=== PATIENT | female | born 1940 | race Caucasian/White ===

== ENCOUNTER 2022-02-07 10:20 | Emergency (ER) | payer MEDICARE, SELFPAY ==
[2022-02-07 10:32] VITALS: BP 122/84; PULSE 97; RESP 20; TEMP 37.1; O2SAT 96; BMI 26.5
--- NOTE | 2022-02-07 10:57 | ED.SOB ---
HPI - SOB/Dyspnea General Time Seen by Provider: 10:57 Date Seen: 02/07/22 Chief Complaint: Shortness of Breath/Dyspnea Stated Complaint: Short of breath Time Seen by Provider: 02/07/22 10:57 Source: patient, RN notes reviewed and old records reviewed Mode of arrival: ambulatory Limitations: no limitations History of Present Illness HPI Narrative: Carlotta is a very pleasant 81-year-old female looking younger than her stated age with a history of COPD as well as hypertension and recent diagnosis of COVID comes to the emergency room today for continued and worsening coughing and shortness of breath. Patient notes the onset of a cough on approximately January 23. She was seen on the as her cough was quite significant and tested for COVID but was not aware of those results. She was also diagnosed with a COPD flare and was placed on prednisone and antibiotics. She notes that she had improvement of her symptoms at that time. Once she finished those medications her symptoms unfortunately came back are in [place] and are even worse. Patient describes coughing up of a lot of phlegm and shortness of breath. She states that she has no appetite and no taste and consequently has lost 8 lb. She is able to eat drink however. She does her home nebulizers twice a day but did not do a nebulizer this morning. She also notes that her left low back has been sore. She does not know why. She notes that she has attempted to go to [facility] for rechecks and [place] as well but has been unable to be seen. She does note that she had diarrhea yet last week but no vomiting. She denies dysuria hematuria. 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 She denies chest pain. She does not have any lower extremity edema but notes that her calf muscles are sore. She has not been bed-bound and has been as active as possible. Related Data Home Medications Medication Instructions Recorded Confirmed betamethasone, augmented 0.05 % applic topical 02/07/22 topical cream ferrous gluconate 324 mg (38 mg mg 02/07/22 iron) tablet fluticasone propionate 50 intranasal 02/07/22 mcg/actuation nasal spray,suspension hydroxyzine HCl 50 mg tablet mg 02/07/22 ipratropium 0.5 mg-albuterol 3 mg ml inhalation 02/07/22 (2.5 mg base)/3 mL nebulization soln levothyroxine 100 mcg tablet mcg 02/07/22 omeprazole 20 mg capsule,delayed mg 02/07/22 release simvastatin 10 mg tablet mg 02/07/22 Previous Rx's Medication Instructions Recorded levofloxacin 500 mg tablet 500 mg PO DAILY 7 days #7 tabs 02/07/22 prednisone 20 mg tablet 20 mg PO BID #10 tabs 02/07/22 Allergies Allergy/AdvReac Type Severity Reaction Status Date / Time amoxicillin Allergy Verified 02/07/22 10:38 flu vac Allergy Uncoded 02/07/22 10:38 Review of Systems Status of ROS: Reports: 10 or more systems reviewed and unremarkable except as noted in History and below Const: Reports: fever (Low-grade to 99.3 last week. No fever at this time.) and fatigue; Denies: night sweats Eyes: Denies: change in vision ENMT: Denies: throat pain, difficulty swallowing, hoarseness or mouth pain Cardio: Reports: lightheadedness, shortness of breath with exertion and shortness of breath when lying down; Denies: chest pain or swelling of feet/ankles Resp: Reports: shortness of breath, cough, wheezing and change in phlegm color GI: Reports: diarrhea (Last week that is now improving); Denies: abdominal pain, nausea, vomiting or difficulty swallowing : Denies: painful urination or urinary frequency Musculo: Reports: back pain (Left flank) Integ/Breast: Denies: rash Neuro: Denies: headache or weakness in extremities Endo: Reports: fatigue Allergy/Immuno: Reports: wheezing PFSH PFSH Social History Smoking Status: Former smoker Do you use any of these nicotine containing products: None How often do you have a drink containing alcohol: monthly or less AUDIT-C Alcohol total score: 1 Non-prescribed substance use: denies use Exam Narrative: Exam Narrative: Patient is alert and oriented. Very pleasant woman in no acute distress. Eyes are clear. TMs without erythema or fluid Oral cavity with moist mucous membranes. No significant erythema or exudate in the posterior oropharynx. Neck is supple without lymphadenopathy. Heart with regular rate and rhythm and lungs show decreased breath sounds especially in the right lower lung base. Abdomen is soft nontender. She does have pain with palpation over the left lower posterior ribcage. There are no skin changes here. Lower extremities without edema. No significant tenderness with palpating calves. Const: Vital Signs, click to edit/add: Vital Signs - 24 hr 02/07/22 10:32 02/07/22 11:11 Temperature 98.8 F Pulse Rate [Right Pulse Oximeter] 97 Respiratory Rate 20 Blood Pressure [Ri ght Upper Arm] 122/84 Pulse Oximetry 96 98 Oxygen Delivery Me thod Room Air Documenting provider has reviewed patient's vital signs: yes Course Course Hospital Course: Differential diagnosis includes but is not limited to pneumonia, COPD exacerbation, PE, post COVID syndrome other viral illness. Will check a triple swab as patient is also not vaccinated against influenza. Will also check a CBC, comprehensive panel, CRP, urinalysis given the diarrhea and now flank pain, D-dimer, and chest x-ray. DuoNeb has been ordered for patient at this time. Reevaluation(s) Reevaluation #1: Patient notes improvement after DuoNeb. Vital Signs Vital signs: Initial Vital Signs Temperature 98.8 F 02/07/22 10:32 Temperature Source Temporal Artery Scan 02/07/22 10:32 Pulse Rate 97 02/07/22 10:32 Respiratory Rate 20 02/07/22 10:32 Blood Pressure 122/84 02/07/22 10:32 Blood Pressure Mean 96 02/07/22 10:32 Blood Pressure Position Sitting 02/07/22 10:32 Pulse Oximetry 96 02/07/22 10:32 Oxygen Delivery Method 02/07/22 10:32 Vital Signs Temperature 98.8 F 02/07/22 10:32 Pulse Rate 97 02/07/22 10:32 Respiratory Rate 20 02/07/22 10:32 Blood Pressure 122/84 02/07/22 10:32 Pulse Oximetry 96 02/07/22 10:32 Oxygen Delivery Method 02/07/22 10:32 Temperature 98.8 F 02/07/22 10:32 Pulse Rate 97 02/07/22 10:32 Respiratory Rate 20 02/07/22 10:32 Blood Pressure 122/84 02/07/22 10:32 Pulse Oximetry 98 02/07/22 11:11 Oxygen Delivery Method 02/07/22 10:32 MDM - SOB/Dyspnea MDM Narrative Medical decision making narrative: 1. Clinical pneumonia-at this time chest x-ray is reassuring that patient definitely has decreased breath sounds in the right lower lung base compared to the left. While she does not have a fever, I will be treating her for pneumonia. She recently completed Zithromax and thus I will switch to Levaquin per up-to-date guidance. Levaquin 500 mg daily for 7 days. Did discuss Levaquin is a fact on kidneys. Would recommend patient follow-up next week for recheck of creatinine and potassium. In addition given her history of COPD, will treat with prednisone 20 mg p.o. b.i.d. x5 days. Recommend increasing DuoNebs to 3 times daily. Seek medical attention for worsening symptoms. 2. Post COVID -chest x-ray reassuring. D-dimer within normal limits so no evidence to suggest that patient's shortness of breath is secondary to PE. She is testing positive at this time on a PCR but per her report at home negative on at the antigen test. 3. Musculoskeletal pain-patient has pain over left flank posterior ribcage. No evidence of UTI or hematuria. Likely secondary to coughing. 3. Disposition-home at this time. Seek medical attention for worsening symptoms. Recommend follow-up next week for recheck. Medical Records Attestation: I reviewed the patient's medical records. Lab Data Attestation: I reviewed the patient's lab results. Labs: Lab Results 02/07/22 02/07/22 02/07/22 Range/Units 11:50 11:50 11:58 WBC 9.02 (4.50-11.00) K/uL RBC 5.75 H (4.00-5.20) m/uL Hgb 16.4 H (12.0-16.0) gm/dL Hct 47.6 (33.0-51.0) % MCV 83 (80-100) fL MCH 29 (26-34) pg MCHC 35 (32-36) gm/dL RDW Coeff of Murphy 12.8 (11.5-15.5) % Plt Count 362 (140-440) K/uL Neut % (Auto) 67.4 (42.0-72.0) % Lymph % (Auto) 20.3 (20-44) % [place] % (Auto) 11.0 (0.0-11.0) % Eos % (Auto) 0.8 (0.0-7.0) % Baso % (Auto) 0.2 (0.0-3.0) % Neut # (Auto) 6.08 (1.7-7.0) K/uL Lymph # (Auto) 1.83 (0.90-2.90) K/uL [place] # (Auto) 1.00 H (0.00-0.90) K/UL Eos # (Auto) 0.07 (0.00-0.50) K/uL Baso # (Auto) 0.02 (0.00-0.30) K/uL Abs Immat Gran (auto) 0.03 (0.00-0.30) K/uL Imm/Tot Granulo (auto) 0.3 % D-Dimer Quant (PE/DVT) (0.00-0.50) ug/ml Sodium (135-149) mmol/L Potassium (3.6-5.1) mmol/L Chloride (96-114) mmol/L Carbon Dioxide (20-32) mmol/L BUN (7-30) mg/dL Creatinine (0.5-1.5) mg/dL Estimated Creat Clear Estimated GFR ml/min Glucose (60-115) mg/dL Calcium (8.4-10.6) mg/dL Total Bilirubin (0.1-1.5) mg/dL AST (12-35) U/L ALT (4-35) U/L Alkaline Phosphatase (40-150) U/L C-Reactive Protein (0.5-1.0) mg/dL Total Protein (6.0-8.3) g/dL Albumin (3.3-5.0) g/dL Urine Color Yellow (Yellow) Urine Appearance Slightly Cloudy A (Clear) Urine pH 6.0 (5.0-8.5) Ur Specific [place] 1.025 (1.000-1.030) Urine Protein Trace A (Negative) Urine Glucose (UA) Negative (Negative) Urine Ketones Negative (Negative) Urine Blood Negative (Negative) Urine Nitrite Negative (Negative) Urine Bilirubin Negative (Negative) Urine Urobilinogen 0.2 (0.2-1.0) Ur Leukocyte Esterase Trace A (Negative) Urine RBC 0-2 (0-2) Urine WBC 0-2 (0-5) Ur Squamous Epith Cells None (None-Few) Urine Bacteria None (None) SARS-CoV-2 (PCR) POSITIVE SARS-CoV-2 A (Negative) Influenza Type A (PCR) Negative PCR FLU A (Negative) Influenza Type B (PCR) Negative PCR FLU B (Negative) RSV (PCR) Negative PCR RSV (Negative) 02/07/22 02/07/22 Range/Units 11:58 11:58 WBC (4.50-11.00) K/uL RBC (4.00-5.20) m/uL Hgb (12.0-16.0) gm/dL Hct (33.0-51.0) % MCV (80-100) fL MCH (26-34) pg MCHC (32-36) gm/dL RDW Coeff of Murphy (11.5-15.5) % Plt Count (140-440) K/uL Neut % (Auto) (42.0-72.0) % Lymph % (Auto) (20-44) % [place] % (Auto) (0.0-11.0) % Eos % (Auto) (0.0-7.0) % Baso % (Auto) (0.0-3.0) % Neut # (Auto) (1.7-7.0) K/uL Lymph # (Auto) (0.90-2.90) K/uL [place] # (Auto) (0.00-0.90) K/UL Eos # (Auto) (0.00-0.50) K/uL Baso # (Auto) (0.00-0.30) K/uL Abs Immat Gran (auto) (0.00-0.30) K/uL Imm/Tot Granulo (auto) % D-Dimer Quant (PE/DVT) 0.27 (0.00-0.50) ug/ml Sodium 137 (135-149) mmol/L Potassium 3.6 (3.6-5.1) mmol/L Chloride 101 (96-114) mmol/L Carbon Dioxide 27 (20-32) mmol/L BUN 23 (7-30) mg/dL Creatinine 1.0 (0.5-1.5) mg/dL Estimated Creat Clear 35.49 Estimated GFR 57 ml/min Glucose 92 (60-115) mg/dL Calcium 9.4 (8.4-10.6) mg/dL Total Bilirubin 0.8 (0.1-1.5) mg/dL AST 25 (12-35) U/L ALT 39 H (4-35) U/L Alkaline Phosphatase 97 (40-150) U/L C-Reactive Protein < 0.5 L (0.5-1.0) mg/dL Total Protein 7.3 (6.0-8.3) g/dL Albumin 4.6 (3.3-5.0) g/dL Urine Color (Yellow) Urine Appearance (Clear) Urine pH (5.0-8.5) Ur Specific [place] (1.000-1.030) Urine Protein (Negative) Urine Glucose (UA) (Negative) Urine Ketones (Negative) Urine Blood (Negative) Urine Nitrite (Negative) Urine Bilirubin (Negative) Urine Urobilinogen (0.2-1.0) Ur Leukocyte Esterase (Negative) Urine RBC (0-2) Urine WBC (0-5) Ur Squamous Epith Cells (None-Few) Urine Bacteria (None) SARS-CoV-2 (PCR) (Negative) Influenza Type A (PCR) (Negative) Influenza Type B (PCR) (Negative) RSV (PCR) (Negative) Imaging Data Chest x-ray: Attestation: I have reviewed the pertinent imaging results. My impression: By my read possibly slightly increased right lower lung markings. Radiologist's impression: Cardiovascular and mediastinum:? Heart size and vasculature are normal in caliber and appearance.? Lungs and pleural spaces:? Lungs are clear.? No sign of infiltrate or mass. ?No sign of pleural effusion.? No pneumothorax.? Bones and soft tissues: Left shoulder replacement hardware. IMPRESSION: No acute findings. Discharge Plan Discharge Clinical Impression: Muscle strain, COPD (chronic obstructive pulmonary disease), Pneumonia Patient Disposition: Home, Self-Care Condition: Improved Additional Instructions: You are still testing positive for COVID. This is not unusual. I do not think you are contagious at this time. I would like you to start on Levaquin as your antibiotic as you have already tried Zithromax. Recommend follow-up for recheck of kidney function and potassium early next week with your primary clinic. I would also recommend starting prednisone. Increase her DuoNeb to 3 times a day Return to the emergency room for worsening symptoms and as needed. Thank you for your patients today Prescriptions: New prednisone 20 mg tablet 20 mg PO BID Qty: 10 0RF levofloxacin 500 mg tablet 500 mg PO DAILY 7 Days Qty: 7 0RF No Action ipratropium-albuterol 0.5 mg-3 mg(2.5 mg base)/3 mL solution for nebulization INHALATION Label Comments: USE 3 ML IN NEBULIZER 4 TIMES DAILY NEEDED betamethasone, augmented 0.05 % cream TOPICAL Label Comments: APPLY TO BODY AREAS TWO TIMES A DAY FOR 2-3 WEEKS NEEDED FOR ITCHING simvastatin 10 mg tablet Label Comments: TAKE 1 TABLET BY MOUTH ONCE DAILY WITH EVENING MEAL hydroxyzine HCl 50 mg tablet Label Comments: TAKE 1 TABLET BY MOUTH EVERY 8 HOURS NEEDED FOR ITCHING levothyroxine 100 mcg tablet Label Comments: TAKE 1 TABLET BY MOUTH BEFORE BREAKFAST omeprazole 20 mg capsule,delayed release(DR/EC) Label Comments: TAKE 1 CAPSULE BY MOUTH ONCE DAILY BEFORE A MEAL fluticasone propionate 50 mcg/actuation spray,suspension INTRANASAL Label Comments: USE 1 SPRAY(S) IN THE NOSTRIL(S) ONCE DAILY ferrous gluconate 324 mg (38 mg iron) tablet Label Comments: TAKE 1 TABLET BY MOUTH TWICE DAILY WITH MEALS Follow Up/Referrals: Lalita Mendez, [employer], BOOK EDITOR [Primary Care Provider] - Stand Alone Forms: [email or web address] Info Instructions
[2022-02-07 11:11] VITALS: O2SAT 98
--- NOTE | 2022-02-07 11:11 | CRLHL7_ITS ---
For Patients: As a result of the Cures Act, medical imaging exams and procedure reports are released immediately into your electronic medical record. You may view this report before your referring provider. If you have questions, please contact your health care provider. INDICATION: CONTINUED COUGH POST COVID TECHNIQUE: Chest 1 view COMPARISON: None FINDINGS: Cardiovascular and mediastinum: Heart size and vasculature are normal in caliber and appearance. Lungs and pleural spaces: Lungs are clear. No sign of infiltrate or mass. No sign of pleural effusion. No pneumothorax. Bones and soft tissues: Left shoulder replacement hardware. IMPRESSION: No acute findings. Dictated by Thai Hernández MD @ 02/07/2022 11:44:14 AM (Electronically Signed)
--- OUTSIDE RECORDS SUMMARY | 2022-02-07 11:18 | XMS_ITS | Encounter Summary ---
:1940 Author Organization [employer] Address [address] [place] [address] Care Team Providers Name Role Phone Sergo Mrax MD Primary Care Provider Reason for Visit Reason Comments CONSULT Encounter Details Date Type Department Care Team Description 12/28/2019 Office Visit [facility] History of lumbar fusion (Primary Dx); Rheumatology [address] [facility] Lumbar spondylosis; [address] [employer] Osteoarthritis of fingers of hands, bila teral; [place] [address] [place], [place] Cervical spondylosis; [phone] [id number] Myofascial pain Social History Tobacco Use Types Packs/Day Years Used Date Smoking Tobacco: Former Smokeless Tobacco: Never Sex Assigned at Date Recorded Not on file documented as of this encounter Last Filed Vital Signs Vital Sign Reading Time Taken Comments Blood Pressure 134/74 12/28/2019 1:17 PM CDT Pulse 74 12/28/2019 1:17 PM CDT Temperature 36.4 ??C (97.6 ??F) 12/28/2019 1:17 PM CDT Respiratory Rate - - Oxygen Saturation - - Inhaled Oxygen Concentration - - Weight 73.5 kg (162 lb) 12/28/2019 1:17 PM CDT Height 157.5 cm (5' 2) 12/28/2019 1:17 PM CDT Body Mass Index 29.63 12/28/2019 1:17 PM CDT documented in this encounter Patient Instructions Patient InstructionsKaiser Wang MD - 12/28/2019 1:30 PM CDT No doubt you have some osteoarthritis - cartilage wear/age related arthritis. We know you have that in your neck, back, hands. You also have some muscle attachment pain (sides of hips) = myofascial pain. I don't see signs of any inflammatory arthritis like rheumatoid. Treatment options are kind of limited. Tylenol is safe 1000 mg up to 3 times daily. Meds in the ibuprofen or aleve category (NSAIDs) get riskier the older you are - can be hard on stomach or kidneys. Not entirely contraindicated. Would want to check blood counts and kidney function tolet you know if occasional aleve is OK. The duloxetine your primary care suggested this summer is a mood medication, but can sometimes reduce overall pain. Takes 2-3 months to help with pain; won't stop all pain, but could turn the volume down. Its safe, and not hard on organs. Restart it at 30 mg/day for 1 month, then change to 60 mg/day; I've given you enough for a total of 4 months; See Dr. Marx for follow-up before that ends. If no pain improvements from duloxetine in 3-4 months, probably not worth continuing. Voltaren gel is like topical Aleve- its over the counter, safe, because not oral. Can rub on sore joint areas up to 3 times daily. Cortisone shots can be done in selected areas - could be done base of the thumbs; could be done sides of the hips. Usually we don't recommend opioids (oxycodone) for this since can quickly tolerize to it. documented in this encounter Progress Notes Kaiser Wang MD - 12/28/2019 1:30 PM CDT RHEUMATOLOGY NEW PATIENT NOTE This note was generated with voice activated secretary to the vice president software and may contain typographical and word substitution errors. The patient is self referred. HPI: The patient is a 79 y.o. female. She is self-referred for arthritis. She gets her primary care at [facility]. She has seen there orthopedic sports medicine for some chronic low back pain. She does have a history of 2 back surgeries. She was felt to have lumbar facet arthropathy. X-ray showed progression of L2-3 degenerative disc disease above the level of the fusion from L3-S1. She had been given some Tylenol with codeine, MRI scan was ordered. Later I believe she was given some oxycodone. I am not able to see the MRI results on Care everywhere. She was recommended to dowest harrison exercise program and follow-up in a couple of months. She was not having any radicular symptoms. On prior MRI, she also has multilevel degenerative disc disease and facet arthropathy in the cervical spine. X-rays of the hands in 2018 showed advanced osteoarthritis changes of the 1st carpometacarpal joint and several DIP joints. Prior MRI of the left shoulder in 2017 showed some partial-thicknesstearing of the supraspinatus and some subacromial bursitis. Review of lab results shows some mild renal insufficiency, creatinine running about 1.15 with mildlyreduced GFR, CBC looks normal. C reactive protein and sedimentation rate have been normal including normal C reactive protein June,. She did bring with her a report of an MRI scan from September 05, 2019 done at [facility]. This shows a fusion L4-S1 which was new since the prior scan. There is some L2-3 degenerative disc disease with some inflammatory endplate change and mild facet arthropathy. She also brought a few outside labs from 2019, essentially revealed a normal CBC. We further reviewed her history. She is here to see if there is anything else she can do in terms ofhelping her musculoskeletal pain. She is aware that she has arthritis in her neck, low back and hands. She enjoys walking and typically can walk 1.5-2 miles, although she will get some discomfort by doing so. She does notes some soreness in her lateral hips and sometimes the legs feel tired. She feelsas though she has reduced strength in her hands. She has seen an orthopedist, Dr. Espinoza at [facility]. I believe he has given her limited supply of oxycodone, she may take 1 of those about every 3 or 4 days. She will also occasionally take Aleve, I do not know the status of her renal function. Her primary care is through [facility]. She also has a history of left total shoulder replacement for rotator cuff arthropathy. She has never tried Voltaren gel, she takes Tylenol about once per day. Interestingly, her primary care gave her some duloxetine several months ago, she only tried it for about a month, and gave up on it and stopped taking it. Patient Active Problem List Diagnosis ??? Acquired spondylolisthesis ??? COPD (chronic obstructive pulmonary disease) (HRC) ??? DDD (degenerative disc disease), lumbar ??? Diverticular disease ??? Facet syndrome (HRC) ??? Hypertension ??? Hypothyroidism ??? Iron deficiency anemia ??? Major depressive disorder, recurrent episode, in full remission (HRC) ??? Osteopenia ??? Primary open angle glaucoma (POAG) of both eyes, mild stage ??? RLS (restless legs syndrome) ??? Sleep disturbance ??? Status post lumbar spinal fusion Current Outpatient Medications Medication Sig Dispense Refill ??? ALBUterol sulfate HFA (PROAIR HFA) 108 (90 Base) MCG/ACT inhaler Inhale 2 Puffs. ??? aspirin EC 81 MG enteric coated tablet Take 81 mg by mouth. ??? ferrous gluconate (FERGON) 324 (38 Fe) MG tablet Take 324 mg by mouth. ??? FLUoxetine (PROZAC) 40 MG capsule Take 40 mg by mouth. ??? fluticasone propionate (FLONASE) 50 MCG/ACT nasal solution 1 [place] by Nasal route. ??? hydrOXYzine HCl (ATARAX) 50 MG tablet Take 50 mg by mouth. ??? latanoprost (XALATAN) 0.005 % eye drop solution Place 1 Drop into eye(s). ??? levothyroxine (SYNTHROID) 50 MCG tablet Take one tablet on Thursday and , Thursday ??? levothyroxine (SYNTHROID) 75 MCG tablet Take one table Thursday, Thursday, Thursday, Thursday ??? omeprazole (PRILOSEC) 20 MG capsule Take 20 mg by mouth. ??? sertraline (ZOLOFT) 100 MG tablet Take 150 mg by mouth. ??? simvastatin (ZOCOR) 10 MG tablet Take 10 mg by mouth. ??? traZODone (DESYREL) 150 MG tablet Take 150 mg by mouth. ??? triamterene-hydrochlorothiazide (MAXZIDE-25) 37.5-25 MG tablet Take 1 Tablet by mouth. ??? umeclidinium-vilanterol (ANORO ELLIPTA) 62.5-25 MCG/INH inhaler Inhale 1 Puff. ??? valACYclovir (VALTREX) 500 MG tablet 1 tab PO twice a day x 1 day as needed for breakouts. ?? Percocet p.r.n. pain No current facility-administered medications for this visit. Allergies Allergen Reactions ??? Amoxicillin Nausea And Vomiting ??? Amoxicillin-Pot Clavulanate Other reaction(s): Vomiting Social History Socioeconomic History ??? Marital status: Spouse name: Not on file ??? Number of children: Not on file ??? Years of education: Not on file ??? Highest education level: Not on file Occupational History ??? Not on file NS, no alcohol; retired FH: Sister had RA PAIN & RAPID3: In flowsheet if completed by patient ROS: Comprehensive review of systems form filled out for today's visit was reviewed with the patient, placed into SDOC, and is otherwise negative except: She has noted a few lb weight gain, she has dyspnea from COPD. Some dryness of the eyes and mouth. OBJECTIVE: VS: Per flow sheet. Wt: General: NAD. Eyes: Externally clear. Mouth: Moist mucous membranes. No ulcers. Lymph: No cervical or groin adenopathy. Chest: CTA. Heart: RRR, no M/R/G. Abdomen: Bowel sounds present, soft, nontender, no palpable HSM. Musculoskeletal: All 4 limbs examined. The joint exam was negative for synovitis, deformity, or instability with the exception of: Bony enlargement of several DIP joints, squaring and mild tenderness 1st CMC joints. She had some myofascial neck and trapezius discomfort, mildly reduced range of motion left shoulder at the side of the replacement. Good range of motion the hips, tender over the greater trochanters. Knees ankles and feet move normally. Neurologic: No focal deficits Cutaneous: No rashes Spine: Relatively preserved lumbar motion despite the fusion, she has actually reduced cervical spine motion with some discomfort. 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 I do not see any signs of an inflammatory arthropathy. She has known degenerative changes in the hands cervical and lumbar spine from available outside imaging which was reviewed. 2: She is taking Tylenol only once daily and we discussed she could take a 1000 mg 3 times daily. I suggest she could use some Voltaren gel topically on her hands as needed. We discussed local cortisone injections could be done in symptomatic joints. 3: I told her I would be cautious at her age to use NSAIDs. However topical NSAID should be acceptable as noted above. Her creatinine is slightly elevated and GFR slightly reduced, so best to avoid these. 4: Her primary care doctor had given her some duloxetine I believe to try for anxiety and she only took it for about a month and then stopped it, but was tolerating it. I have suggested she restart this and give it at least 3 or 4 months to see if it would help with any of her pain. She will do 30 mg daily for 1 month then 60 mg daily. I have given her enough to get through the next 4 months and at that point she should be following up with Dr. Marx at [facility] for longer-term management of the duloxetine in hopes of helping both mood and pain. If it provides no benefit on pain I would simply recommend stopping it. 5: Unfortunately, little to offer otherwise unless she wants to return for some targeted cortisone injections and peripheral joint areas. TT 60 min, at least 30 min spend counselling and educating on the issues as noted above documented in this encounter Plan of Treatment Not on filedocumented as of this encounter Visit Diagnoses Diagnosis History of lumbar fusion - Primary Lumbar spondylosis (HRC) Lumbosacral spondylosis without myelopat hy Osteoarthritis of fingers of hands, bila teral Cervical spondylosis (HRC) Cervical spondylosis without myelopathy Myofascial pain Mylagia and myositis, unspecified documented in this encounter Care Teams Editor In Chief Newspaper Relationship Specialty Start Date End Date Sergo Marx MD PCP - General 12/15/[address] [place] [address] documented as of this encounter
--- OUTSIDE RECORDS SUMMARY | 2022-02-07 11:18 | XMS_ITS | Clinical Summary ---
:1940 Author Organization [employer] Address [address], [place] [address] Care Team Providers Name Role Phone Sergo Marx MD Primary Care Provider Source Comments You are receiving this document as you are listed as the primary care provider,follow-up provider, or the patient has been referred to you for consultation.This is in compliance with the Medicare and Medicaid EHR Incentive Program,which states Providers who transition their patient to another setting of careor provider of care or refers their patient to another provider of care shouldprovide summarycare record for each transition of care or referral. [employer] Allergies Active Allergy Reactions Severity Noted Date Comments Amoxicillin Nausea And Vomiting High 07/27/2018 Amoxicillin-Pot 04/26/2013 Other reacti on(s): Clavulanate Vomiting Medications Medication Sig Dispensed Refills Start Date End Date Status ALBUterol sulfate HFA Inhale 2 Puffs. 0 12/14/2018 Active (PROAIR HFA) 108 (90 Base) MCG/ACT inhaler aspirin EC 81 MG Take 81 mg by 0 07/29/2018 Active enteric coated tablet mouth. ferrous gluconate Take 324 mg by 0 01/25/2019 Active (FERGON) 324 (38 Fe) mouth. MG tablet fluticasone propionate 1 [place] by Nasal 0 08/23/2018 Active (FLONASE) 50 MCG/ACT route. nasal solution hydrOXYzine HCl Take 50 mg by 0 12/14/2018 Active (ATARAX) 50 MG tablet mouth. latanoprost (XALATAN) Place 1 Drop into 0 Active 0.005 % eye drop eye(s). solution levothyroxine Take one tablet 0 05/19/2019 Active (SYNTHROID) 50 MCG on Thursday and tablet , Thursday levothyroxine Take one table 0 05/13/2019 Active (SYNTHROID) 75 MCG Thursday, tablet Thursday, Thursday, Thursday omeprazole (PRILOSEC) Take 20 mg by 0 12/14/2018 Active 20 MG capsule mouth. simvastatin (ZOCOR) 10 Take 10 mg by 0 12/14/2018 Active MG tablet mouth. traZODone (DESYREL) Take 150 mg by 0 12/14/2018 Active 150 MG tablet mouth. triamterene-hydrochlor Take 1 Tablet by 0 12/03/2018 Active othiazide (MAXZIDE-25) mouth. 37.5-25 MG tablet umeclidinium-vilantero Inhale 1 Puff. 0 12/14/2018 Active l (ANORO ELLIPTA) 62.5-25 MCG/INH inhaler valACYclovir (VALTREX) 1 tab PO twice a 0 12/14/2018 Active 500 MG tablet day x 1 day as needed for breakouts. oxyCODONE-acetaminophe Take 1 Tablet by 10 Tablet 0 12/28/2019 Active n (PERCOCET) 5-325 MG mouth every 24 tabletIndications: hours as needed Lumbar spondylosis for Pain. ([facility]) DULoxetine (CYMBALTA) 1 cap daily for 1 30 Capsule 0 0 Active 30 MG capsule month, then switch to 60 mg/day capsule. DULoxetine (CYMBALTA) Take 1 Capsule by 90 Capsule 0 0 Active 60 MG capsule mouth daily. diclofenac (VOLTAREN) Apply 2 g to skin 100 g 3 12/28/2019 Active 1 % gel 4 times daily as needed for Other (hand, knee, other joint pain). Active Problems Problem Noted Date Lumbar spondylosis 12/28/2019 Osteoarthritis of fingers of hands, bilateral 12/28/19 20 Cervical spondylosis 12/28/2019 Myofascial pain 12/28/2019 Facet syndrome 07/13/2018 Iron deficiency anemia 07/01/2017 DDD (degenerative disc disease), lumbar 04/23/2014 Osteopenia 01/20/2014 Sleep disturbance 01/20/2014 History of lumbar fusion 01/31/2012 COPD (chronic obstructive pulmonary disease) 0 Diverticular disease 02/08/2009 Acquired spondylolisthesis 02/04/2006 Overview: Degenerative L5-S1 RLS (restless legs syndrome) 05/21/2004 Primary open angle glaucoma (POAG) of both eyes, mild stage 09/18/2003 Hypertension 03/21/2002 Major depressive disorder, recurrent episode, in full remission 09/12/1999 Hypothyroidism 04/29/1999 Immunizations Name Administration Dates Next Due PCV13 (Prevnar) 01/04/2015 PPSV23 (Pneumovax) 01/07/2010 Tdap 01/24/2013 Social History Tobacco Use Types Packs/Day Years Used Date Smoking Tobacco: Former Smokeless Tobacco: Never Sex Assigned at Date Recorded Not on file Last Filed Vital Signs Vital Sign Reading [...] Mass Index 29.63 12/28/2019 1:17 PM CDT Plan of Treatment Health Maintenance Due Date Last Done Comments Medicare Welcome Visit 1940 COVID-19 Vaccine (#1) 03/11/1941 Zoster/Shingles (1 of 2) 09/10/1991 Dexa 2006 Influenza (#1) 2021 DTaP/Tdap/Td (2 - Tdap) 01/24/2023 01/24/2013, 07/06/2006 Pneumococcal 65+ Yrs Completed 01/04/2015, 01/07/2010 HepA Aged Out No longer eligib le based on patient's age to complete this to pic HepB Aged Out No longer eligib le based on patient's age to complete this to pic Hib Aged Out No longer eligib le based on patient's age to complete this to pic IPV (Polio) Aged Out No longer eligib le based on patient's age to complete this to pic MCV4 Aged Out No longer eligib le based on patient's age to complete this to pic Insurance Payer Benefit Plan / Subscriber ID Effective Dates Phone Addre ss Type Group BCBS BCBS MEDICARE [id number] 2018-Present [phone] Medicare ADVANTAGE Care Teams Pulley Worker Relationship Specialty Start Date End Date Sergo Marx MD PCP - General 12/15/19 [address] [place], [place] [id number]
--- OUTSIDE RECORDS SUMMARY | 2022-02-07 11:19 | XMS_ITS | Encounter Summary ---
:1940 Author Organization [facility] Address [address] [place] [address] Care Team Providers Name Role Phone Maame Skinner Primary Care Provider Encounter Details Date Type Department Care Team Description 12/05/2020 Transcribe Orders GENERIC EXTERNAL DATA Admit, Dr Zuleta own DEPARTMENT Social History Tobacco Use Types Packs/Day Years Used Date Smoking Tobacco: Never Assessed Sex Assigned at Date Recorded Not on file documented as of this encounter Plan of Treatment Not on filedocumented as of this encounter Visit Diagnoses Not on filedocumented in this encounter Care Teams Foiling Machine Adjuster Relationship Specialty Start Date End Date Maame Skinner PCP - General 07/27/18 [address] [place] [address] documented as of this encounter
--- OUTSIDE RECORDS SUMMARY | 2022-02-07 11:19 | XMS_ITS | Encounter Summary ---
:1940 Author Organization [facility] Address [address] [place] [address] Care Team Providers Name Role Phone Maame Skinner Primary Care Provider Encounter Details Date Type Department Care Team Description 01/14/2021 Travel Social History Tobacco Use Types Packs/Day Years Used Date Smoking Tobacco: Never Assessed Sex Assigned at Date Recorded Not on file COVID-19 Exposure Response Date Recorded In the last month, have you been in contact with No / Unsure 01/14/2021 12:48 PM CDT someone who was confirmed or suspected to have Coronavirus / COVID-19? documented as of this encounter Plan of Treatment Not on filedocumented as of this encounter Visit Diagnoses Not on filedocumented in this encounter Care Teams Community Facilitator Relationship Specialty Start Date End Date Maame Skinner PCP - General 07/27/18 [address] [place] [address] documented as of this encounter
--- OUTSIDE RECORDS SUMMARY | 2022-02-07 11:19 | XMS_ITS | Encounter Summary ---
:1940 Author Organization [address] [address] Care Team Providers Name Role Phone Maame Skinner Primary Care Provider Reason for Referral Rehab Therapy Cardiac Therapy (Routine) - Closed Specialty Diagnoses / Procedures Referred By Contact Refer red To Contact CARDIAC REHAB Diagnoses COPD, moderate (H) [address] [address] Phone: Referral ID Status Reason Start Date Expiration Date Visits Requ ested Visits Authorized [id number] Closed 01/08/2021 03/22/2021 72 72 Encounter Details Date Type Department Care Team Description 12/21/2020 Transcribe Orders GENERIC EXTERNAL Miko [place], [place] PD, moderate (H) DATA DEPARTMENT (Primary Dx) [facility] LUNG AND SLEEP [facility] [address] [address] Social History Tobacco Use Types Packs/Day Years Used Date Smoking Tobacco: Never Assessed Sex Assigned at Date Recorded Not on file documented as of this encounter Plan of Treatment Scheduled Referrals Name Type Priority Associated Diagnoses Order S chedule Pulmonary Rehab Referral Referral Routine COPD, moderate ( H) Expected: 12/21/2020 (Approximate), Expires: 2021 documented as of this encounter Visit Diagnoses Diagnosis COPD, moderate (H) - Primary Chronic airway obstruction, not elsewher e classified documented in this encounter Care Teams Manager Park Relationship Specialty Start Date End Date Maame Skinner PCP - General 5/7/[address] [place] [address] [place] [address] documented as of this encounter
--- OUTSIDE RECORDS SUMMARY | 2022-02-07 11:19 | XMS_ITS | Encounter Summary ---
:1940 Author Organization [facility] Address [address] [place] [address] Care Team Providers Name Role Phone Maame Skinner Primary Care Provider Encounter Details Date Type Department Care Team Description 01/22/2021 Travel Social History Tobacco Use Types Packs/Day Years Used Date Smoking Tobacco: Never Assessed Sex Assigned at Date Recorded Not on file COVID-19 Exposure Response Date Recorded In the last month, have you been in contact with No / Unsure 01/22/2021 4:01 PM CDT someone who was confirmed or suspected to have Coronavirus / COVID-19? documented as of this encounter Plan of Treatment Not on filedocumented as of this encounter Visit Diagnoses Not on filedocumented in this encounter Care Teams Order Department Supervisor Relationship Specialty Start Date End Date Maame Skinner PCP - General 07/27/18 [address] [place] [address] documented as of this encounter
--- OUTSIDE RECORDS SUMMARY | 2022-02-07 11:19 | XMS_ITS | Encounter Summary ---
:1940 Author Organization [address] [address] Care Team Providers Name Role Phone Clinic, Maame [facility] Primary Care Provider Reason for Referral Rehab Therapy Cardiac Therapy (Routine) - Closed Specialty Diagnoses / Procedures Referred By Contact Refer red To Contact CARDIAC REHAB Diagnoses COPD, moderate (H) [address] [address] Phone: Referral ID Status Reason Start Date Expiration Date Visits Requ ested Visits Authorized [id number] Closed 01/08/2021 03/22/2021 72 72 Reason for Visit Rehab Therapy Cardiac Therapy (Routine) - Closed Specialty Diagnoses / Procedures Referred By Contact Refer red To Contact CARDIAC REHAB Diagnoses COPD, moderate (H) [address] [address] Phone: Referral ID Status Reason Start Date Expiration Date Visits Requ ested Visits Authorized [id number] Closed 01/08/2021 03/22/2021 72 72 Encounter Details Date Type Department Care Team Description 01/14/2021 [facility] Miko Barrett MD [facility] [address] [facility] [address] [place] [address] COPD, moderate (H) Encounter Cardiac and Pulmonary 2, [facility] [address] [place] [address] Social History Tobacco Use Types Packs/Day Years Used Date Smoking Tobacco: Never Assessed Sex Assigned at Date Recorded Not on file COVID-19 Exposure Response Date Recorded In the last month, have you been in contact with No / Unsure 01/14/2021 12:48 PM CDT someone who was confirmed or suspected to have Coronavirus / COVID-19? documented as of this encounter Medications at Time of Discharge Medication Sig Dispensed Refills Start Date End Date albuterol (PROAIR Inhale 2 puffs into 0 HFA/PROVENTIL HFA/VENTOLIN the lungs every 6 HFA) 108 (90 Base) MCG/ACT hours as needed for inhaler shortness of breath / dyspnea or wheezing aspirin (ASA) 81 MG EC Take 1 tablet (81 mg) 0 tabletIndications: Benign by mouth daily essential hypertension Ferrous Gluconate 324 Take 1 tablet by 0 (37.5 Fe) MG TABS mouth 2 times daily fluticasone (FLONASE) 50 [place] 1 spray into 0 MCG/ACT nasal spray both nostrils 2 times daily hydrOXYzine (VISTARIL) 25 Take 25 mg by mouth 0 MG capsule nightly as needed for itching latanoprost (XALATAN) Place 1 drop into 0 0.005 % ophthalmic both eyes At Bedtime solution levothyroxine Take 112 mcg by mouth 0 (SYNTHROID/LEVOTHROID) 112 daily MCG tablet sertraline (ZOLOFT) 100 MG Take 150 mg by mouth 0 tablet daily simvastatin (ZOCOR) 10 MG Take 10 mg by mouth 0 tablet At Bedtime traZODone (DESYREL) 150 MG Take 150 mg by mouth 0 tablet At Bedtime triamterene-HCTZ Take 1 tablet by 0 (MAXZIDE-25) 37.5-25 MG mouth daily tablet umeclidinium-vilanterol Inhale 1 puff into 0 (ANORO ELLIPTA) 62.5-25 the lungs daily MCG/INH oral inhaler valACYclovir (VALTREX) 500 Take 500 mg by mouth 0 MG tablet Take 500 mg two times daily for 1 day for breakouts documented as of this encounter Plan of Treatment Scheduled Referrals Name Type Priority Associated Diagnoses Order S chedule Pulmonary Rehab Referral Routine COPD, moderate (H) 1 Occu rrences starting Referral 01/14/2021 unti l 01/14/2021 documented as of this encounter Procedures Procedure Name Priority Date/Time Associated Diagnosis Comme nts OXIMETRY - HIM SCAN 01/14/2021 12:00 AM CDT documented in this encounter Results OXIMETRY - HIM SCAN (01/14/2021 12:00 AM CDT) Specimen (Source) Anatomical Location Collection Method / Collectio n Time Received Time / Laterality Volume 01/14/2021 Narrative This result has an attachment that is no t available. Provider Scan PFT ORDERABLES documented in this encounter Visit Diagnoses Diagnosis COPD, moderate (H) Chronic airway obstruction, not elsewher e classified documented in this encounter Care Teams Senior Account Clerk Relationship Specialty Start Date End Date Clinic, [facility]ame aCsey PCP - General 07/27/18 [address] [place] [address] documented as of this encounter
--- OUTSIDE RECORDS SUMMARY | 2022-02-07 11:19 | XMS_ITS | Encounter Summary ---
:1940 Author Organization [place] Address [address] [place] [id number] Care Team Providers Name Role Phone Clinic, Maame Casey Primary Care Provider Encounter Details Date Type Department Care Team Description 07/27[facility]2018 [facility] [place] [facility] [address] [facility] [place] [address] Benign essential hypertension (Primary D x); 07/29/2018 [facility] Adrien Stroud MD [address] [place] [address] Symptomatic anemia; Dept Hypokalemia; [address] Urinary tract infection with out hematuria, site unspecified; [place], [place] [facility] [id number] Social History Tobacco Use Types Packs/Day Years Used Date Smoking Tobacco: Never Assessed Sex Assigned at Date Recorded Not on file documented as of this encounter Last Filed Vital Signs Vital Sign Reading Time Taken Comments Blood Pressure 115/60 07/29/2018 4:42 PM CDT Pulse 73 07/29/2018 1:15 PM CDT Temperature 36.3 ??C (97.4 ??F) 07/29/2018 4:42 PM CDT Respiratory Rate 16 07/29/2018 4:42 PM CDT Oxygen Saturation 96% 07/29/2018 4:42 PM CDT Inhaled Oxygen Concentration - - Weight 72.3 kg (159 lb 6.4 oz) 07/27/2018 6:40 PM CDT Height 157.5 cm (5' 2) 07/27/2018 6:40 PM CDT Body Mass Index 29.15 07/27/2018 6:40 PM CDT documented in this encounter Discharge Summaries Rocio Kilpatrick PA-C - 07/29/2018 3:20 PM CDT Discharge Summary Hospitalist Service Ayah Delaney Date of : 1940 Age: [age] year old Date of Admission: 07/27/2018 Date of Discharge: 07/29/2018 Admitting Physician: Adrien Plaza MD Discharge Physician: Rocio Kilpatrick PA-C Discharging Service: Hospitalist Service Primary Provider: Maame Skinner Primary Care Physician Discharge Diagnoses/Problem Oriented Hospital Course (Providers): Ayah Delaney was admitted on 07/27/2018 by Adrien Plaza MD and I would refer you to their history and physical. Briefly, she was admitted for diffuse abdominal pain and worsening shortness of breath. CT scan showed showed a small left kidney stone which was likely the cause of pain and passed on its own. She also complained of shortness of breath with exertion and Lexiscan stress test was negative. She was noted to be anemic and received a unit of blood with improvement in symptoms but reported blackish stools so GI was called who performed endoscopy finding multiple non bleeding gastric ulcers. She was started on BID PPI and H pylori antigen was ordered. #Gastric ulcers with acute on chronic iron deficiency anemia- Currently being worked up by PCP with planned colonoscopy by GI at end of July. While here reported shortness of breath, blackish stools andepigastric discomfort with drop in Hgb from 10 to 8 so received 1 unit of blood. EGD done by Dr. Rashid shows multiple non bleeding gastric ulcers. -Started BID PPI -Continue Iron supplement -Avoid NSAIDS -Reduced Aspirin 325 to 81 mg -Follow up with GI as recommended -H pylori stool antigen ordered at time of discharge ?? #Exertional dyspnea: patient has known iron deficiency anemia and currently having this worked up byher PCP. Patient was scheduled to have an outpatient cardiac stress test on 08/06 to rule out underlying cardiac cause for her symptoms followed by outpatient colonoscopy with Dr. Rashid of [facility] on 08/17. I nitial troponin negative. EKG shows rate of 67 bpm in NSR without ischemic changes. Lexiscan performed which was negative for coronary disease. ?? #Left ureteral stone with mild left hydronephrosis and hydroureter: incidental finding of 3 mm left distal ureteral stone on CT of abdomen/pelvis with reports of only mild left sided low abdominal painand no urinary symptoms. UA mildly abnormal, received a dose of IV Rocephin, would not continue antibiotics at this time and will follow urine culture results. Passed stone on her own. ?? #COPD: no acute exacerbation, continue [employer] Anoro-Ellipta if patient has home inhaler with her ?? #HTN: stable, continue Maxzide ?? #Hypothyroidism: resume Levothyroxine ?? #GERD: continue Omeprazole ?? #Depression: resume Sertraline Code Status: Full Code Brief Hospital Stay Summary Sent Home With Patient in AVS: Reason for your hospital stay You were admitted for concerns of stomach pain and shortness of breath. CT scan of your abdomen showed a small kidney stone that subsequently passed on its own here so no further work up here is needed. We also noted you were anemic which is likely the cause of your shortness of breath. You had a Lexiscan stress test that was normal. Your symptoms improved after blood transfusion with 1 unit. We were concerned you had a bleed in your upper stomach so GI was called and did an EGD noting ulcers. They recommend YOU STOP all NSAIDS and reduce your Aspirin from 325 to 81 mg. You need to take Omeprazole 40 mg daily and follow up with them and your primary care doctor as scheduled. You may have some blackish stools for the next 2-3 days but this should resolve. If you did not provide a stool sample here for H pylori testing you will need to bring one in to your primary care doctor. Pending Results: Unresulted Labs Ordered in the Past 30 Days of this Admission Date and Time Order Name Status Description 07/29/2018 0744 Stone analysis In process Discharge Instructions and Follow-Up: Follow-up Appointments Follow-up and recommended labs and tests Follow up with primary care and GI as recommended Discharge Disposition: Discharged to home Discharge Medications: Current Discharge Medication List CONTINUE these medications which have CHANGED Details aspirin (ASA) 81 MG EC tablet Take 1 tablet (81 mg) by mouth daily Associated Diagnoses: Benign essential hypertension omeprazole 20 MG tablet Take 2 tablets (40 mg) by mouth daily Take 40 mg daily Qty: 60 tablet, Refills: 1 Associated Diagnoses: Symptomatic anemia CONTINUE these medications which have NOT CHANGED Details albuterol (PROAIR HFA/PROVENTIL HFA/VENTOLIN HFA) 108 (90 Base) MCG/ACT inhaler Inhale 2 puffs into the lungs every 6 hours as needed for shortness of breath / dyspnea or wheezing Ferrous Gluconate 324 (37.5 Fe) MG TABS Take 1 tablet by mouth 2 times daily fluticasone (FLONASE) 50 MCG/ACT nasal spray [place] 1 spray into both nostrils 2 times daily hydrOXYzine (VISTARIL) 25 MG capsule Take 25 mg by mouth nightly as needed for itching latanoprost (XALATAN) 0.005 % ophthalmic solution Place 1 drop into both eyes At Bedtime levothyroxine (SYNTHROID/LEVOTHROID) 112 MCG tablet Take 112 mcg by mouth daily sertraline (ZOLOFT) 100 MG tablet Take 150 mg by mouth daily simvastatin (ZOCOR) 10 MG tablet Take 10 mg by mouth At Bedtime traZODone (DESYREL) 150 MG tablet Take 150 mg by mouth At Bedtime triamterene-HCTZ (MAXZIDE-25) 37.5-25 MG tablet Take 1 tablet by mouth daily umeclidinium-vilanterol (ANORO ELLIPTA) 62.5-25 MCG/INH oral inhaler Inhale 1 puff into the lungs daily valACYclovir (VALTREX) 500 MG tablet Take 500 mg by mouth Take 500 mg two times daily for 1 day for breakouts Allergies: Allergies Allergen Reactions ??? Amoxicillin Nausea and Vomiting ??? Influenza Virus Vaccine [id number] Consultations This Hospital Stay: Consultation during this admission received from gastroenterology Condition and Physical on Discharge: Discharge condition: Stable Vitals: Blood pressure 117/57, pulse 73, temperature 97.2 ??F (36.2 ??C), temperature source Oral, resp. rate 14, height 1.575 m (5' 2), weight 72.3 kg (159 lb 6.4 oz), SpO2 94 %. Constitutional: Alert and orientated Lungs: CTAB Cardiovascular: RRR with no murmur Abdomen: Bowel sounds are present with no tenderness Skin: No rash or open sores Other: Discharge Time: Greater than 30 minutes. Image Results From This Hospital Stay (For Non-EPIC Providers): Results for orders placed or performed during the hospital encounter of 07/27/18 Abd/pelvis CT, IV contrast only TRAUMA / AAA Narrative CT ABDOMEN AND PELVIS WITH CONTRAST 07/27/2018 4:14 PM HISTORY: Abdominal pain, unspecified. TECHNIQUE: Axial images from the lung bases to the symphysis are performed with additional coronal reformatted images. 70 mL of Isovue 370 are given intravenously. Radiation dose for this scan was reduced using automated exposure control, adjustment of the mA and/or kV according to patient size, or iterative reconstruction technique. FINDINGS: The lung bases are clear. Abdomen: The liver, spleen, gallbladder, pancreas and adrenal glands are unremarkable. There is mild left hydronephrosis with a distal left ureteral stone on series 2, image 52 measuring 0.3 cm. No evidence of right hydronephrosis or urinary tract calculi. Cyst is present in the lateral right kidney which appears to be a simple cyst measuring 1.5 cm. No other renal calculi are appreciated. A few parapelvic left renal cysts are also noted. No enlarged abdominal lymph nodes. The bowel is normal in caliber without obstruction or diverticulitis. Patient is status post right hemicolectomy. Anastomosis is patent. Aorta demonstrates calcified plaque without aneurysm or dissection. Pelvis: The bladder and rectum are unremarkable. Uterus is not identified. No enlarged lymph nodes. Bone window examination demonstrates lower lumbar bony fusion from L3 through S1. Impression IMPRESSION: 1. 0.3 cm distal left ureteral stone causing only mild left hydronephrosis and hydroureter. No other urinary tract calculi bilaterally. No evidence of right hydronephrosis. 2. Bilateral renal cysts are noted and are unremarkable. 3. No bowel obstruction or diverticulitis. Previous right hemicolectomy. ELSIE MCCLURE MD NM MPI w Lexiscan Narrative GATED MYOCARDIAL PERFUSION SCINTIGRAPHY WITH INTRAVENOUS PHARMACOLOGIC VASODILATATION LEXISCAN -ONE DAY STUDY 07/28/2018 3:50 PM AYAH DELANEY 77 years Female 1940. Indication/Clinical History: Shortness of breath Impression 1. Myocardial perfusion imaging using single isotope technique demonstrated normal myocardial perfusion. 2. Gated images demonstrated normal wall motion. The left ventricular systolic function is normal calculated ejection fraction of 77%. Procedure Pharmacologic stress testing was performed with Lexiscan at a rate of 0.08 mg/ml rapid bolus injection, for 15 seconds, 0.4 mg/5ml intravenously. Low-level exercise was not performed along with the vasodilator infusion. The heart rate was 66 at baseline and mahamed to 93 beats per minute during the Lexiscan infusion. The rest blood pressure was 102/57 mmHg and was 103/45 mm Hg during Lexiscan infusion. The patient experienced shortness of breath during the test. Myocardial perfusion imaging was performed at rest, approximately 45 minutes after the injection intravenously of 11 mCi of Tc-99m Myoview. At peak pharmacologic effect, 10-20 seconds after Lexiscan, the patient was injected intravenously with 33 mCi of Tc-99m Myoview. The post-stress tomographic imaging was performed approximately 60 minutes after stress. EKG Findings The resting EKG demonstrated sinus rhythm with mild nonspecific ST segment changes. The stress EKG demonstrated no significant ST segment changes. Tomographic Findings Overall, the study quality is adequate. Body mass index 29.15 . On the stress images, no significant perfusion defects were present. On the rest images, no significant perfusion defects were seen . Gated images demonstrated normal wall motion. The left ventricular ejection fraction was calculated to be 77%. TID was absent. DARRELL HUMPHREY MD Most Recent Lab Results In [facility] (For Non-[facility] Providers): Most Recent 3 CBC's: Recent Labs Lab Test 07/29/18 1055 07/29/18 0607/28/18 1017 07/27/18 1508 WBC -- 7.5 7.6 6.6 HGB 9.8* 9.8* 8.0* 8.4* MCV -- 83 82 82 PLT -- 333 335 394 Most Recent 3 BMP's: Recent Labs Lab Test 07/29/18 0628 07/28/18 1017 07/28/18 0322 07/27/18 1521 NA 141 142 -- -- 141 POTASSIUM 3.7 4.2 4.0 < > 2.9* CHLORIDE 109 112* -- -- 105 CO2 30 27 -- -- 30 BUN 10 11 -- -- 15 CR 0.91 0.95 -- -- 0.99 ANIONGAP 2* 3 -- -- 6 JOSE 8.9 8.4* -- -- 8.6 GLC 99 95 -- -- 86 < > = values in this interval not displayed. Most Recent 3 Troponin's:No lab results found. Most Recent 3 INR's:No lab results found. Most Recent 2 LFT's: Recent Labs Lab Test 07/27/18 1521 AST 17 ALT 19 ALKPHOS 104 BILITOTAL 0.3 Most Recent Cholesterol Panel:No lab results found. Most Recent 6 Bacteria Isolates From Any Culture (See EPIC Reports for Culture Details): Recent Labs Lab Test 07/27/18 1521 CULT <10,000 colonies/mL urogenital yessica Susceptibility testing not routinely done Most Recent TSH, T4 and HgbA1c: No lab results found. Associated attestation - Luzmaria Gonzalez MD - 08/05/2018 12:47 PM CDT Physician Attestation I, Luzmaria Gonzalez, have reviewed and discussed with the advanced practice provider their discharge plan for Ayah Delaney. I did not participate in a shared visit by interviewing or examining the patient and this should be billed as an advanced practice provider only discharge. Luzmaria Gonzalez Date of Service (when I saw the patient): I did not personally see this patient today. documented in this encounter Medications at Time of Discharge Medication Sig Dispensed Refills Start Date End Date albuterol (PROAIR Inhale 2 puffs into 0 HFA/PROVENTIL the lungs every 6 HFA/VENTOLIN HFA) 108 (90 hours as needed for Base) MCG/ACT inhaler shortness of breath / dyspnea or wheezing aspirin (ASA) 81 MG EC Take 1 tablet (81 0 2018 tabletIndications: Benign mg) by mouth daily essential hypertension Ferrous Gluconate 324 Take 1 tablet by 0 (37.5 Fe) MG TABS mouth 2 times daily fluticasone (FLONASE) 50 [place] 1 spray into 0 MCG/ACT nasal spray both nostrils 2 times daily hydrOXYzine (VISTARIL) 25 Take 25 mg by mouth 0 MG capsule nightly as needed for itching latanoprost (XALATAN) Place 1 drop into 0 0.005 % ophthalmic both eyes At Bedtime solution levothyroxine Take 112 mcg by 0 (SYNTHROID/LEVOTHROID) mouth daily 112 MCG tablet sertraline (ZOLOFT) 100 Take 150 mg by mouth 0 MG tablet daily simvastatin (ZOCOR) 10 MG Take 10 mg by mouth 0 tablet At Bedtime traZODone (DESYREL) 150 Take 150 mg by mouth 0 MG tablet At Bedtime triamterene-HCTZ Take 1 tablet by 0 (MAXZIDE-25) 37.5-25 MG mouth daily tablet umeclidinium-vilanterol Inhale 1 puff into 0 (ANORO ELLIPTA) 62.5-25 the lungs daily MCG/INH oral inhaler valACYclovir (VALTREX) Take 500 mg by mouth 0 500 MG tablet Take 500 mg two times daily for 1 day for breakouts omeprazole 20 MG Take 2 tablets (40 60 tablet 1 07/29/2018 08/28/2018 tabletIndications: mg) by mouth daily Symptomatic anemia Take 40 mg daily documented as of this encounter Progress Notes Jyoti Smith RN - 07/29/2018 9:16 AM CDT Pt reported sudden onset SOB at rest when sitting upright in chair stating it felt like someone blew up my stomach. She reports the sudden onset usually is when she is exerting herself, but never when she has just been sitting in bed. O2sats 98%, no cyanosis, cap refill WNL. Pt encouraged to performdeep breathing exercises, IS initial instructions provided and encouraged, pillows propped behind ptin an upright position. Pt reported abdominal bloating, refusing to eat her breakfast. Will notify PA. Edelmira Burkett RN - 07/28/2018 4:11 PM CDT Patient ambulated in halls. Noted SOB-had to stop and lean forward to catch breath-relieved quickly with rest-pt states the SOB with exertion is the same as it was prior to coming in has not improved or become worse. INEET Edelmira Burkett RN - 07/28/2018 3:00 PM CDT [facility] France[facility] Strange RN - 07/28/2018 2:28 PM CDT Pre-procedure: Are you having any pain or shortness of breath (prior to starting)? none Initial vital signs: BP 116/55, HR 69, RR 14 Allergies reviewed: yes Rhythm: Sinus Medications taken within 48 hours of procedure: see epic Any nitrates within the last 48 hours:none Last Caffeine: nothing today Lung sounds: CTA, no wheezing, crackles or rtx Health History (COPD, Asthma, etc): COPD Procedure: Lexiscan Reaction/symptoms after receiving Peyton injection: Shortness of breath Intensity of Pain: none Rhythm: sinus 1. Vital Signs:BP 103/45, HR 93, RR 14 2. Vital Signs:BP 109/49, HR 88, RR 14 Reversal agent: N/A Post: Resolution of symptoms?: YES Vital signs: BP 109/49, HR 92, RR 14 Vital signs: BP 110/50, HR83, RR 13 Rhythm: sinus Walk: NO Comment: Patient tolerated procedure. Transported to radiology in wheelchair. Return to Radiology Mee Corral PA-C - 07/28/2018 11:28 AM CDT [facility] Hospitalist Progress Note Name: Ayah Delaney Provider: Vandana Corral PA-C Date of Service: 07/28/2018 Assessment & Plan Summary of Stay: Ayah Delaney is a 77 year old female with PMH significant for iron deficiency anemia, COPD, HTN, GERD, hypothyroidism, HLD, depression, h/o right colon perforation s/p resection withend to end anastomosis, and known diverticular disease on previous colonoscopy who was admitted on 07/27/2018 for diffuse abdominal pain and worsening shortness of breath. #Exertional dyspnea, acute on chronic TOMY: patient has known iron deficiency anemia and currently having this worked up by her PCP. Patient reports DYKES is worse over the last few days and that while walking her dog two days ago she needed to stop several time which is not usual for her. Patient was scheduled to have an outpatient cardiac stress test on 08/06 to rule out underlying cardiac cause for her symptoms followed by outpatient colonoscopy with Dr. Rashid of [facility] on 08/17. Initial troponin negative. EKG shows rate of 67 bpm in NSR without ischemic changes. Hgb decreased to 8.0 this morning which is lower than her baseline ~10.0 of recent. Suspect patient may have slow GI bleed with stool occult positive. - Obtain Lexiscan today - Ambulate patient and if significantly symptomatic consider transfusion of 1 unit of PRBCs - Continue plan for outpatient colonoscopy on 08/[address] Rashid - Continue [employer] iron supplementation #Left ureteral stone with mild left hydronephrosis and hydroureter: incidental finding of 3 mm left distal ureteral stone on CT of abdomen/pelvis with reports of only mild left sided low abdominal painand no urinary symptoms. UA mildly abnormal, received a dose of IV Rocephin, would not continue antibiotics at this time and will follow urine culture results. Urology initially consulted on admission and felt the patient should be able to pass the stone on her own without intervention. - Encourage increased fluid intake, can stop IVFs - Strain urine - Continue Flomax - Pain control as needed #COPD: no acute exacerbation, continue [employer] Anoro-Ellipta if patient has home inhaler with her #HTN: stable, continue Maxzide #Hypothyroidism: resume Levothyroxine #GERD: continue Omeprazole #Depression: resume Sertraline DVT Prophylaxis: Ambulate every shift Code Status: Full Code Disposition: Expected discharge later today or tomorrow Interval History Patient denies shortness of breath when laying in bed. She reports over the last few days with minimal exertion she has been feeling short of breath, only able to walk about 6 stairs before having to stop and with walking her dog two days ago had to stop multiple times. She states this is worse than her symptoms have been since onset, which worries her. She notes having dark stools without bright redblood. Denies chest pain, N/V, or lightheadedness/dizziness. She reports feeling generally fatigued. -Data reviewed today: I reviewed all new labs and imaging reports over the last 24 hours. Physical Exam Temp: 97.4 ??F (36.3 ??C) Temp src: Oral BP: 125/54 Pulse: 66 Heart Rate: 72 Resp: 18 SpO2: 94 % O2 Device: None (Room air) Vitals: 07/27/18 1840 Weight: 72.3 kg (159 lb 6.4 oz) Vital Signs with Ranges Temp: [97.1 ??F (36.2 ??C)-98 ??F (36.7 ??C)] 97.4 ??F (36.3 ??C) Pulse: [55-84] 66 Heart Rate: [72-81] 72 Resp: [16-20] 18 BP: (91-139)/(46-74) 125/54 SpO2: [91 %-99 %] 94 % I/O last 3 completed shifts: In: 950 [I.V.:950] Out: 1350 [Urine:1350] GEN: Alert, oriented x 3, appears comfortable, NAD. HEENT: Normocephalic/atraumatic, no scleral icterus, no nasal discharge, mouth moist. CV: Regular rate and rhythm, no murmur or JVD. S1 + S2 noted, no S3 or S4. LUNGS: Clear to auscultation bilaterally without rales/rhonchi/wheezing/retractions. Symmetric chestrise on inhalation noted. ABD: Active bowel sounds, soft, mild LLQ tenderness with palpation, non- distended. No rebound/guarding/rigidity. EXT: No edema. No cyanosis. No acute joint synovitis noted. SKIN: Dry to touch, no exanthems noted in the visualized areas. Medications ??? aspirin 325 mg Oral Daily ??? ferrous gluconate 324 mg Oral BID ??? fluticasone 1 spray Both Nostrils BID ??? latanoprost 1 drop Both Eyes At Bedtime ??? levothyroxine 112 mcg Oral Daily ??? omeprazole 20 mg Oral Daily ??? sertraline 150 mg Oral Daily ??? simvastatin 10 mg Oral At Bedtime ??? tamsulosin 0.4 mg Oral Daily ??? traZODone 150 mg Oral At Bedtime ??? triamterene-HCTZ 1 tablet Oral Daily ??? umeclidinium-vilanterol 1 puff Inhalation Daily Data Results for orders placed or performed during the hospital encounter of 07/27/18 Abd/pelvis CT, IV contrast only TRAUMA / AAA Narrative CT ABDOMEN AND PELVIS WITH CONTRAST 07/27/2018 4:14 PM HISTORY: Abdominal pain, unspecified. TECHNIQUE: Axial images from the lung bases to the symphysis are performed with additional coronal reformatted images. 70 mL of Isovue 370 are given intravenously. Radiation dose for this scan was reduced using automated exposure control, adjustment of the mA and/or kV according to patient size, or iterative reconstruction technique. FINDINGS: The lung bases are clear. Abdomen: The liver, spleen, gallbladder, pancreas and adrenal glands are unremarkable. There is mild left hydronephrosis with a distal left ureteral stone on series 2, image 52 measuring 0.3 cm. No evidence of right hydronephrosis or urinary tract calculi. Cyst is present in the lateral right kidney which appears to be a simple cyst measuring 1.5 cm. No other renal calculi are appreciated. A few parapelvic left renal cysts are also noted. No enlarged abdominal lymph nodes. The bowel is normal in caliber without obstruction or diverticulitis. Patient is status post right hemicolectomy. Anastomosis is patent. Aorta demonstrates calcified plaque without aneurysm or dissection. Pelvis: The bladder and rectum are unremarkable. Uterus is not identified. No enlarged lymph nodes. Bone window examination demonstrates lower lumbar bony fusion from L3 through S1. Impression IMPRESSION: 1. 0.3 cm distal left ureteral stone causing only mild left hydronephrosis and hydroureter. No other urinary tract calculi bilaterally. No evidence of right hydronephrosis. 2. Bilateral renal cysts are noted and are unremarkable. 3. No bowel obstruction or diverticulitis. Previous right hemicolectomy. ELSIE MCCLURE MD CBC with platelets differential Result Value Ref Range WBC 6.6 4.0 - 11.0 10e9/L RBC Count 3.46 (L) 3.8 - 5.2 10e12/L Hemoglobin 8.4 (L) 11.7 - 15.7 g/dL Hematocrit 28.3 (L) 35.0 - 47.0 % MCV 82 78 - 100 fl MCH 24.3 (L) 26.5 - 33.0 pg MCHC 29.7 (L) 31.5 - 36.5 g/dL RDW 19.7 (H) 10.0 - 15.0 % Platelet Count 394 150 - 450 10e9/L Diff Method Automated Method % Neutrophils 64.4 % % Lymphocytes 19.3 % % Monocytes 10.5 % % Eosinophils 4.9 % % Basophils 0.6 % % Immature Granulocytes 0.3 % Nucleated RBCs 0 0 /100 Absolute Neutrophil 4.3 1.6 - 8.3 10e9/L Absolute Lymphocytes 1.3 0.8 - 5.3 10e9/L Absolute Monocytes 0.7 0.0 - 1.3 10e9/L Absolute Eosinophils 0.3 0.0 - 0.7 10e9/L Absolute Basophils 0.0 0.0 - 0.2 10e9/L Abs Immature Granulocytes 0.0 0 - 0.4 10e9/L Absolute Nucleated RBC 0.0 UA with Microscopic Result Value Ref Range Color Urine Yellow Appearance Urine Slightly Cloudy Glucose Urine Negative NEG^Negative mg/dL Bilirubin Urine Negative NEG^Negative Ketones Urine Negative NEG^Negative mg/dL Specific [place] Urine 1.025 1.003 - 1.035 Blood Urine Negative NEG^Negative pH Urine 6.0 5.0 - 7.0 pH Protein Albumin Urine Negative NEG^Negative mg/dL Urobilinogen mg/dL Normal 0.0 - 2.0 mg/dL Nitrite Urine Negative NEG^Negative Leukocyte Esterase Urine Trace (A) NEG^Negative Source Midstream Urine WBC Urine 6 (H) 0 - 5 /HPF RBC Urine 2 0 - 2 /HPF Bacteria Urine Few (A) NEG^Negative /HPF Squamous Epithelial /HPF Urine <1 0 - 1 /HPF Mucous Urine Present (A) NEG^Negative /LPF Amorphous Crystals Few (A) NEG^Negative /HPF Stool: occult blood Result Value Ref Range Occult Blood Positive (A) NEG^Negative Comprehensive metabolic panel Result Value Ref Range Sodium 141 133 - 144 mmol/L Potassium 2.9 (L) 3.4 - 5.3 mmol/L Chloride 105 94 - 109 mmol/L Carbon Dioxide 30 20 - 32 mmol/L Anion Gap 6 3 - 14 mmol/L Glucose 86 70 - 99 mg/dL Urea Nitrogen 15 7 - 30 mg/dL Creatinine 0.99 0.52 - 1.04 mg/dL GFR Estimate 55 (L) >60 mL/min/[1.73_m2] GFR Estimate If Black 64 >60 mL/min/[1.73_m2] Calcium 8.6 8.5 - 10.1 mg/dL Bilirubin Total 0.3 0.2 - 1.3 mg/dL Albumin 3.2 (L) 3.4 - 5.0 g/dL Protein Total 6.5 (L) 6.8 - 8.8 g/dL Alkaline Phosphatase 104 40 - 150 U/L ALT 19 0 - 50 U/L AST 17 0 - 45 U/L Creatinine POCT Result Value Ref Range Creatinine 1.0 0.52 - 1.04 mg/dL GFR Estimate 54 (L) >60 mL/min/[1.73_m2] GFR Estimate If Black 65 >60 mL/min/[1.73_m2] Nt probnp inpatient Result Value Ref Range N-Terminal Pro BNP Inpatient 197 0 - 1,800 pg/mL Troponin I Result Value Ref Range Troponin I ES <0.015 0.000 - 0.045 ug/L Magnesium Result Value Ref Range Magnesium 2.1 1.6 - 2.3 mg/dL Potassium Result Value Ref Range Potassium 3.3 (L) 3.4 - 5.3 mmol/L Potassium Result Value Ref Range Potassium 4.0 3.4 - 5.3 mmol/L Basic metabolic panel Result Value Ref Range Sodium 142 133 - 144 mmol/L Potassium 4.2 3.4 - 5.3 mmol/L Chloride 112 (H) 94 - 109 mmol/L Carbon Dioxide 27 20 - 32 mmol/L Anion Gap 3 3 - 14 mmol/L Glucose 95 70 - 99 mg/dL Urea Nitrogen 11 7 - 30 mg/dL Creatinine 0.95 0.52 - 1.04 mg/dL GFR Estimate 58 (L) >60 mL/min/[1.73_m2] GFR Estimate If Black 67 >60 mL/min/[1.73_m2] Calcium 8.4 (L) 8.5 - 10.1 mg/dL CBC with platelets Result Value Ref Range WBC 7.6 4.0 - 11.0 10e9/L RBC Count 3.32 (L) 3.8 - 5.2 10e12/L Hemoglobin 8.0 (L) 11.7 - 15.7 g/dL Hematocrit 27.1 (L) 35.0 - 47.0 % MCV 82 78 - 100 fl MCH 24.1 (L) 26.5 - 33.0 pg MCHC 29.5 (L) 31.5 - 36.5 g/dL RDW 19.9 (H) 10.0 - 15.0 % Platelet Count 335 150 - 450 10e9/L EKG 12 lead Result Value Ref Range Interpretation ECG Click View Image link to view waveform and result ABO/Rh type and screen Result Value Ref Range ABO O RH(D) Pos Antibody Screen Neg Test Valid Only At [facility] Specimen Expires 07/30/2018 Urine Culture Aerobic Bacterial Result Value Ref Range Specimen Description Midstream Urine Special Requests Specimen received in preservative Culture Micro Culture in progress Vandana Corral PA-C Jyoti Smith RN - 07/27/2018 6:32 PM CDT ROOM # 229 Living Situation (if not independent, order SW consult): at home with significant other in [place] clean up person: Gen Mcmullen, significant other, Activity level at baseline: Ind Activity level on admit: Ind Patient registered to observation; given Patient Bill of Rights; given the opportunity to ask questions about observation status and their plan of care. Patient has been oriented to the observation room, bathroom and call light is in place. Discussed discharge goals and expectations with patient/family. documented in this encounter H&P Notes Adrien Plaza MD - 07/27/2018 4:57 PM CDT [facility] History and Physical Hospitalist Date of Admission: 07/27/2018 Date of Service (when I saw the patient): 07/27/18 Provider: Adrien Plaza MD Chief Complaint Shortness of breath and diffuse abdominal pain History is obtained from the patient, electronic health record and emergency department physician History of Present Illness Ayah Delaney is a 77 year old female who has a complicated past medical history as noted below. She presents with diffuse abdominal pain and shortness of breath. She has a chronic iron deficiency anemia that is dating back to 2006, over the years her hemoglobin has been up and down. She had a colonoscopy many years ago revealing extensive diverticular disease in transverse, descending and sigmoid colon. She has also history of right colon perforation, resection and end to end anastomosis. She is being treated with iron supplementation, apparently compliance is not the best, however her hemoglobinis now below her most recent numbers that were 10 or above. She is following with her primary care physician and she has been scheduled for a colonoscopy relatively soon. She is reporting exertional dyspnea that seems to be the consequence of the worsening of her chronic anemia. She is also having malaise and diffuse abdominal pain. No fever, no chills, no nausea or vomiting. No lower urinary symptoms. CT of the abdomen tonight is revealing presence of a 3 mm stone lodged in the distal left ureter with associated hydro ureter-nephrosis. UA is suspicious for infection. Culture is in process. She already had a dose of Rocephin in the emergency department. Dr. Stratton has requested admission to observation overnight for consult with urology in the morning. 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 Colonoscopy 01/2010 polyp repeat in 10 years?? COPD (chronic obstructive pulmonary disease) 01/07/2010 Diverticular disease 02/08/2009 Acquired spondylolisthesis 02/04/2006 Overview: ?? Degenerative L5-S1?? Degeneration of lumbar or lumbosacral intervertebral disc 02/04/2006 Overview: ?? L4-5?? RLS (restless legs syndrome) 05/21/2004 GLAUCOMA 09/18/2003 HYPERTENSION 03/21/2002 REFLUX, ESOPHAGEAL 04/05/2001 Overview: ?? EGD 2005: MIld refulx esophagitis?? DEPRESSIVE DISORDER, RECUR, FULL REMISSION 09/12/1999 HYPOTHYROIDISM ACQUIRED UNSPEC 04/29/1999 POLYP, VOCAL CORD/LARYNX 04/29/1999 Assessment & Plan Ayah Delaney is a 77 year old female who presents with diffuse abdominal pain, worsening of shortness of breath on exertion with laboratory work-up did document acute on chronic anemia and incidentalfinding of renal stone on in the distal left ureter with some degree of hydroureter and nephrosis. 1. Left ureter distal stone/hydroureter-nephrosis. - Given the size of the stone (3 mm) chance that she might pass in the next few hours are significant. Plan. Observation. Diet as tolerated. Hydration with Ringer lactate. Pain control as needed. Flomax 4 mg 1 capsule daily Strain urine. Obtain urology consultation. 2. Acute on chronic iron deficiency anemia. Well-known and has been studied in the past. She has diverticular disease, and her primary physician is following. She will have colonoscopy soon. She does not meet criteria for transfusion. I will continue her iron supplement as prior to admission. 3. Exertional dyspnea secondary to worsening of chronic anemia. 4. COPD. Not in exacerbation. Anoro-ellipta 5. Essential hypertension. Maxzide-25 6. Hypothyroidism. Continue Synthroid. 7. GERD. Omeprazole. Code Status Full Code Primary Care Physician No primary care provider on file. Past Surgical History Lumbar spine fusion. Right colon perforation with partial resection and terminal anastomosis Prior to Admission Medications None Allergies Allergies Allergen Reactions ??? Amoxicillin Nausea and Vomiting ??? Influenza Virus Vaccine H5n1 Social History I have personally reviewed the social history with the patient showing. Social History Tobacco Use ??? Smoking status: Not on file Substance Use Topics ??? Alcohol use: Not on file Family History Heart attack Mother ? Stroke Mother ? No Known Problems Paternal Grandfather ? No Known Problems Paternal Grandmother ? COPD Sister ? Cancer-pancreatic Son Review of Systems Except as noted in the HPI, a 12-system Review of Systems was found to be negative. Physical Exam Vital Signs with Ranges Temp: [98 ??F (36.7 ??C)] 98 ??F (36.7 ??C) Pulse: [73] 73 Resp: [16] 16 BP: (116)/(62) 116/62 SpO2: [96 %] 96 % 0 lbs 0 oz GEN: Alert, oriented x 3, appears comfortable, NAD. HEENT: Normocephalic/atraumatic, no scleral icterus, no nasal discharge, mouth moist. CV: Regular rate and rhythm, no murmur or JVD. S1 + S2 noted, no S3 or S4. LUNGS: Clear to auscultation bilaterally without rales/rhonchi/wheezing/retractions. Symmetric chestrise on inhalation noted. ABD: Active bowel sounds, soft, non-tender/non-distended. No rebound/guarding/rigidity. EXT: No edema or cyanosis. No joint synovitis noted. SKIN: Dry to touch, no exanthems noted in the visualized areas. Data I personally reviewed the EKG tracing showing NSR in the monitor . Results for orders placed or performed during the hospital encounter of 07/27/18 (from the past 24 hour(s)) EKG 12 lead Result Value Ref Range Interpretation ECG Click View Image link to view waveform and result CBC with platelets differential Result Value Ref Range WBC 6.6 4.0 - 11.0 10e9/L RBC Count 3.46 (L) 3.8 - 5.2 10e12/L Hemoglobin 8.4 (L) 11.7 - 15.7 g/dL Hematocrit 28.3 (L) 35.0 - 47.0 % MCV 82 78 - 100 fl MCH 24.3 (L) 26.5 - 33.0 pg MCHC 29.7 (L) 31.5 - 36.5 g/dL RDW 19.7 (H) 10.0 - 15.0 % Platelet Count 394 150 - 450 10e9/L Diff Method Automated Method % Neutrophils 64.4 % % Lymphocytes 19.3 % % Monocytes 10.5 % % Eosinophils 4.9 % % Basophils 0.6 % % Immature Granulocytes 0.3 % Nucleated RBCs 0 0 /100 Absolute Neutrophil 4.3 1.6 - 8.3 10e9/L Absolute Lymphocytes 1.3 0.8 - 5.3 10e9/L Absolute Monocytes 0.7 0.0 - 1.3 10e9/L Absolute Eosinophils 0.3 0.0 - 0.7 10e9/L Absolute Basophils 0.0 0.0 - 0.2 10e9/L Abs Immature Granulocytes 0.0 0 - 0.4 10e9/L Absolute Nucleated RBC 0.0 ABO/Rh type and screen Result Value Ref Range ABO O RH(D) Pos Antibody Screen Neg Test Valid Only At [facility] Specimen Expires 07/30/2018 UA with Microscopic Result Value Ref Range Color Urine Yellow Appearance Urine Slightly Cloudy Glucose Urine Negative NEG^Negative mg/dL Bilirubin Urine Negative NEG^Negative Ketones Urine Negative NEG^Negative mg/dL Specific [place] Urine 1.025 1.003 - 1.035 Blood Urine Negative NEG^Negative pH Urine 6.0 5.0 - 7.0 pH Protein Albumin Urine Negative NEG^Negative mg/dL Urobilinogen mg/dL Normal 0.0 - 2.0 mg/dL Nitrite Urine Negative NEG^Negative Leukocyte Esterase Urine Trace (A) NEG^Negative Source Midstream Urine WBC Urine 6 (H) 0 - 5 /HPF RBC Urine 2 0 - 2 /HPF Bacteria Urine Few (A) NEG^Negative /HPF Squamous Epithelial /HPF Urine <1 0 - 1 /HPF Mucous Urine Present (A) NEG^Negative /LPF Amorphous Crystals Few (A) NEG^Negative /HPF Stool: occult blood Result Value Ref Range Occult Blood Positive (A) NEG^Negative Comprehensive metabolic panel Result Value Ref Range Sodium 141 133 - 144 mmol/L Potassium 2.9 (L) 3.4 - 5.3 mmol/L Chloride 105 94 - 109 mmol/L Carbon Dioxide 30 20 - 32 mmol/L Anion Gap 6 3 - 14 mmol/L Glucose 86 70 - 99 mg/dL Urea Nitrogen 15 7 - 30 mg/dL Creatinine 0.99 0.52 - 1.04 mg/dL GFR Estimate 55 (L) >60 mL/min/[1.73_m2] GFR Estimate If Black 64 >60 mL/min/[1.73_m2] Calcium 8.6 8.5 - 10.1 mg/dL Bilirubin Total 0.3 0.2 - 1.3 mg/dL Albumin 3.2 (L) 3.4 - 5.0 g/dL Protein Total 6.5 (L) 6.8 - 8.8 g/dL Alkaline Phosphatase 104 40 - 150 U/L ALT 19 0 - 50 U/L AST 17 0 - 45 U/L Nt probnp inpatient Result Value Ref Range N-Terminal Pro BNP Inpatient 197 0 - 1,800 pg/mL Troponin I Result Value Ref Range Troponin I ES <0.015 0.000 - 0.045 ug/L Magnesium Result Value Ref Range Magnesium 2.1 1.6 - 2.3 mg/dL Creatinine POCT Result Value Ref Range Creatinine 1.0 0.52 - 1.04 mg/dL GFR Estimate 54 (L) >60 mL/min/[1.73_m2] GFR Estimate If Black 65 >60 mL/min/[1.73_m2] Abd/pelvis CT, IV contrast only TRAUMA / AAA Narrative CT ABDOMEN AND PELVIS WITH CONTRAST 07/27/2018 4:14 PM HISTORY: Abdominal pain, unspecified. TECHNIQUE: Axial images from the lung bases to the symphysis are performed with additional coronal reformatted images. 70 mL of Isovue 370 are given intravenously. Radiation dose for this scan was reduced using automated exposure control, adjustment of the mA and/or kV according to patient size, or iterative reconstruction technique. FINDINGS: The lung bases are clear. Abdomen: The liver, spleen, gallbladder, pancreas and adrenal glands are unremarkable. There is mild left hydronephrosis with a distal left ureteral stone on series 2, image 52 measuring 0.3 cm. No evidence of right hydronephrosis or urinary tract calculi. Cyst is present in the lateral right kidney which appears to be a simple cyst measuring 1.5 cm. No other renal calculi are appreciated. A few parapelvic left renal cysts are also noted. No enlarged abdominal lymph nodes. The bowel is normal in caliber without obstruction or diverticulitis. Patient is status post right hemicolectomy. Anastomosis is patent. Aorta demonstrates calcified plaque without aneurysm or dissection. Pelvis: The bladder and rectum are unremarkable. Uterus is not identified. No enlarged lymph nodes. Bone window examination demonstrates lower lumbar bony fusion from L3 through S1. Impression IMPRESSION: 1. 0.3 cm distal left ureteral stone causing only mild left hydronephrosis and hydroureter. No other urinary tract calculi bilaterally. No evidence of right hydronephrosis. 2. Bilateral renal cysts are noted and are unremarkable. 3. No bowel obstruction or diverticulitis. Previous right hemicolectomy. ELSIE MCCLURE MD Disclaimer: This note consists of symbols derived from keyboarding, dictation and/or voice recognition software. As a result, there may be errors in the script that have gone undetected. Please consider this when interpreting information found in this chart. documented in this encounter Procedure Notes Doroteo Rashid MD - 07/29/2018 1:10 PM CDT INPATIENT PRE-PROCEDURE NOTE CHIEF COMPLAINT / REASON FOR PROCEDURE: melena Admission History and Physical Reviewed, including past medical history, social history family history, ROS, and interval progress notes: on chart-<30 days old; updated within 7 days. PRE-SEDATION ASSESSMENT: Lung Exam: normal Heart Exam: normal Airway Exam: Normal Previous reaction to anesthesia/sedation: NO Sedation plan based on assessment:Moderate (conscious) sedation ASA Classification: 2 - Mild systemic disease ?? IMPRESSION: melena PLAN: EGD Doroteo Rashid MD documented in this encounter Consult Notes Benny Jiménez MD - 07/28/2018 8:14 AM CDT Consult Date: 07/28/2018 UROLOGY CONSULTATION REASON FOR CONSULTATION: Distal left ureteral stone. HISTORY OF PRESENT ILLNESS: Ayah Delaney is a 77-year-old woman with no prior stone history who is being admitted for anemia. She had a CT scan performed yesterday upon admission to evaluate for sources of potential bleeding and the CT scan is negative, other than showing a 3 mm distal left ureteral stone. She has had no pain from this. She reports no flank pain. No dysuria. No fevers, chills, nauseaor vomiting. PAST MEDICAL HISTORY: Anemia, iron deficiency, prior history of a TIA. PAST SURGICAL HISTORY: She has had a prior bowel resection. She has had no prior urologic procedures. HOME MEDICATIONS: Iron supplements, aspirin, albuterol, Requip, Valtrex, Synthroid, Xalatan, Maxzide, Zocor, Desyrel, Vistaril, Atarax. ALLERGIES: SHE IS ALLERGIC TO PENICILLIN. SOCIAL HISTORY: She is a nonsmoker. FAMILY HISTORY: No family history of urologic malignancy or kidney stones. URINARY SYSTEMS: Currently negative. She is having no pain and no symptoms at this time. She was previously a bit short of breath upon admission. PHYSICAL EXAMINATION: VITAL SIGNS: She is currently afebrile. Vital signs stable. GENERAL: Currently alert and oriented and in no acute distress. HEENT: Normocephalic and atraumatic. RESPIRATORY: Normal nonlabored breathing. ABDOMEN: Soft, nontender, nondistended. IMAGING STUDIES: I reviewed her CT scan images and there is a small 2 or 3 mm stone in the distal left ureter, probably about 5 cm above the ureterovesical junction. LABORATORY STUDIES: Her urinalysis is unremarkable. Her serum white blood count is normal at 6.6. IMPRESSION AND PLAN: This is a 77-year-old woman with an asymptomatic 2 or 3 mm distal left ureteralstone. We discussed the stone and the findings today. The stone is asymptomatic. Given its size, it is likely to pass. As long as it remains asymptomatic, she should continue with trial of passage. Shewill have her anemia evaluated as planned in the hospital during this hospital course, but no urologic intervention is planned at this time. We will plan on seeing the patient back in the clinic in about 2 weeks for an update on her symptoms and a repeat CT scan. BENNY JIMÉNEZ MD MT: JULIANA Name: AYAH DELANEY Account: [id number] : 1940 Consult Date: 07/28/2018 Document: [id number] [facility]: [facility] documented in this encounter ED Notes Jyoti Smith RN - 07/27/2018 4:31 PM CDT [facility] ED Nurse Handoff Report Ayah Delaney is a 77 year old female ED Chief complaint: No chief complaint on file. . ED Diagnosis: Final diagnoses: Symptomatic anemia Hypokalemia Urinary tract infection without hematuria, site unspecified Allergies: Allergies Allergen Reactions ??? Amoxicillin Nausea and Vomiting ??? Influenza Virus Vaccine H5n1 Code Status: Full Code Activity level - Baseline/Home: Independent. Activity Level - Current: Stand with Assist. Lift room needed: No. Bariatric: No Child Protective Services Social Worker Needed: No Isolation: Yes. Infection: Not Applicable. Vital Signs: Vitals: 07/27/18 1448 07/27/18 1520 BP: 116/62 Pulse: 73 Resp: 16 Temp: 98 ??F (36.7 ??C) TempSrc: Temporal SpO2: 96% Cardiac Rhythm: , Pain level: 0-10 Pain Scale: 0 Patient confused: No. Patient Falls Risk: Yes. Elimination Status: Has voided Patient Report - Initial Complaint: ABC's intact. Alert and oriented x4. ?? Pt had hgb 8.6 about 2 weeks ago. Today had follow up and lab draw. Pt sent to ED due to further drop in hgb, but unknown number. Pt c/o dizziness, shortness of breath, achy legs, insomnia. . Focused Assessment: resting Tests Performed: Abd/pelvis CT, IV contrast only TRAUMA / AAA Preliminary Result IMPRESSION: 1. 0.3 cm distal left ureteral stone causing only mild left hydronephrosis and hydroureter. No other urinary tract calculi bilaterally. No evidence of right hydronephrosis. 2. Bilateral renal cysts are noted and are unremarkable. 3. No bowel obstruction or diverticulitis. Previous right hemicolectomy. . Abnormal Results: Labs Ordered and Resulted from Time of ED Arrival Up to the Time of Departure from the ED CBC WITH PLATELETS DIFFERENTIAL - Abnormal; Notable for the following components: Result Value RBC Count 3.46 (*) Hemoglobin 8.4 (*) Hematocrit 28.3 (*) MCH 24.3 (*) MCHC 29.7 (*) RDW 19.7 (*) All other components within normal limits ROUTINE UA WITH MICROSCOPIC - Abnormal; Notable for the following components: Leukocyte Esterase Urine Trace (*) WBC Urine 6 (*) Bacteria Urine Few (*) Mucous Urine Present (*) Amorphous Crystals Few (*) All other components within normal limits OCCULT BLOOD STOOL - Abnormal; Notable for the following components: Occult Blood Positive (*) All other components within normal limits COMPREHENSIVE METABOLIC PANEL - Abnormal; Notable for the following components: Potassium 2.9 (*) GFR Estimate 55 (*) Albumin 3.2 (*) Protein Total 6.5 (*) All other components within normal limits CREATININE POCT - Abnormal; Notable for the following components: GFR Estimate 54 (*) All other components within normal limits NT PROBNP INPATIENT TROPONIN I MAGNESIUM ISTAT CREATININE NURSING POCT ABO/RH TYPE AND SCREEN URINE CULTURE AEROBIC BACTERIAL . Treatments provided: protonix, fluid Family Comments: persent OBS brochure/video discussed/provided to patient: Yes ED Medications: Medications 0.9% sodium chloride BOLUS (0 mLs Intravenous Stopped 07/27/18 1630) pantoprazole (PROTONIX) 40 mg IV push injection (40 mg Intravenous Given 07/27/18 1600) iopamidol (ISOVUE-370) solution 500 mL (78 mLs Intravenous Given 07/27/18 1606) 0.9% sodium chloride BOLUS (0 mLs Intravenous Stopped 07/27/18 1617) potassium chloride ER (K-DUR/KLOR-CON M) CR tablet 40 mEq (40 mEq Oral Given 07/27/18 1623) Drips infusing: No For the majority of the shift, the patient's behavior Green. Interventions performed were fluids, protonixs Severe Sepsis OR Septic Shock Diagnosis Present: No ED Nurse Name/Phone Number: Jethro Pena, 4:32 PM RECEIVING UNIT ED HANDOFF REVIEW Above ED Nurse Handoff Report was reviewed: Yes Reviewed by: Jyoti Smith on July 27, 2018 at 5:57 PM Cyrus Bell, RN - 07/27/2018 2:47 PM CDT ABC's intact. Alert and oriented x4. Pt had hgb 8.6 about 2 weeks ago. Today had follow up and lab draw. Pt sent to ED due to further drop in hgb, but unknown number. Pt c/o dizziness, shortness of breath, achy legs, insomnia. Daniela Stratton DO - 07/27/2018 2:33 PM CDT History Chief Complaint: Abnormal Laboratory Value HPI Ayah Delaney is a 77 year old female with a history of TIA, chronic anemia amongst others, who presents with abnormal laboratory value. The patient reports that for the past few months she has had low hemoglobin between 8-9. She had her hemoglobin checked 2 weeks ago of which it was recorded at 8.6 and today on reevaluation it was 8.7 and she was recommended to the go to the ED for further evaluation. She has had associated symptoms of shortness of breath, decreased sleep and appetite, fatigue, and legs aches. The patient notes that she also noticed darker stools a few weeks prior of which she had a stool sample obtained showing blood. To combat the anemia, she has been taking iron supplements but her husbands states that she has not been completely compliant with taking this. However, she notes that she has carpal tunnel therefore has been recently taking daily ibuprofen. The patient denies fever, cough, runny nose, chest pain, abdominal pain, nausea, vomiting, alcohol use, or history of cancer. The patient is scheduled for a colonoscopy on 08/17 with plans for stress test prior to this. CBC 07/27/18 Clinic: WBC 7.8, HGB 8.7 (L), PLT 20.1 (H) Allergies: Amoxicillin; nausea and vomiting Influenza virus vaccine Medications: Iron Supplements Aspirin Albuterol Requip Valtrex Synthroid Voltaren Xalatan Prilosec Maxzide Ferrous Gluconate Zocor Desyrel Vistaril Atarax Past Medical History: Facet syndrome TIA Anemia DDD Osteopenia Sleep disturbance Past Surgical History: Past surgical history reviewed. No pertinent past surgical history. Family History: Family history reviewed. No pertinent family history. Social History: The patient was accompanied to the ED by . Smoking Status: Never Smoker Smokeless Tobacco: Never Used Alcohol Use: Negative Drug Use: Negative Marital Status: Review of Systems Constitutional: Positive for appetite change and fatigue. Negative for fever. HENT: Negative for rhinorrhea. Respiratory: Positive for shortness of breath (none currently). Negative for cough. Gastrointestinal: Positive for blood in stool (from lab). Negative for abdominal pain, nausea and vomiting. Darker stools Musculoskeletal: Positive for myalgias (legs). Neurological: Positive for weakness. Psychiatric/Behavioral: Positive for sleep disturbance. All other systems reviewed and are negative. Physical Exam Patient Vitals for the past 24 hrs: BP Temp Temp src Pulse Resp SpO2 07/27/18 1745 -- -- -- -- -- 92 % 07/27/18 1730 105/65 -- -- 55 -- 91 % 07/27/18 1715 105/68 -- -- 68 -- 96 % 07/27/18 1700 109/58 -- -- 70 -- 95 % 07/27/18 1645 100/62 -- -- 65 -- 95 % 07/27/18 1630 91/74 -- -- 69 -- 94 % 07/27/18 1600 -- -- -- 71 -- 95 % 07/27/18 1545 -- -- -- 69 -- 95 % 07/27/18 1530 -- -- -- 84 -- 95 % 07/27/18 1520 -- -- -- -- -- 96 % 07/27/18 1515 113/66 -- -- -- -- 99 % 07/27/18 1448 116/62 98 ??F (36.7 ??C) Temporal 73 16 -- Physical Exam Nursing note and vitals reviewed. Constitutional: Well nourished. Eyes: Conjunctiva normal. Pupils are equal, round, and reactive to light. ENT: Nose normal. Mucous membranes pink and moist. Neck: Normal range of motion. CVS: Normal rate, regular rhythm. Normal heart sounds. No murmur. Pulmonary: Lungs clear to auscultation bilaterally. No wheezes/rales/rhonchi. GI: Abdomen with generalized tenderness. No rigidity or guarding. No CVA tenderness. KYLEE without gross blood or melena. Lobbyist Nurse Katrina MEDINA: No calf tenderness or swelling. Neuro: Alert. Follows simple commands. Skin: Skin is warm and dry. No rash noted. Generalized pallor. Psychiatric: Normal affect. Emergency Department Course ECG: ECG taken at 1507, ECG read at 1507 Normal sinus rhythm Normal ECG Rate 67 bpm. ND interval 166 ms. QRS duration 82 ms. QT/QTc 444/469 ms. P-R-T axes 67 13 54. Imaging: Radiology findings were communicated with the patient who voiced understanding of the findings. Abd/pelvis CT, IV contrast only TRAUMA / AAA 1. 0.3 cm distal left ureteral stone causing only mild left hydronephrosis and hydroureter. No other urinary tract calculi bilaterally. No evidence of right hydronephrosis. 2. Bilateral renal cysts are noted and are unremarkable. 3. No bowel obstruction or diverticulitis. Previous right hemicolectomy. ELSIE MCCLURE MD Reading per radiology Laboratory: Laboratory findings were communicated with the patient who voiced understanding of the findings. UA: Leukocyte Esterase trace (A), WBC 6 (H), Bacteria few (A), Mucous present (A), Amorphous Crystals few (A), o/w WNL. Creatinine POCT: GFR 54 (L) Stool Occult Blood: Positive (A) CBC: WBC 6.6, HGB 8.4 (L), PLT 394 CMP: Potassium 2.9 (L), GFR 55 (L), Albumin 3.2 (L), Protein Total 6.5 (L), o/w WNL (Creatinine 0.99) Nt probnp inpatient: 197 Troponin (Collected 152): <0.015 Magnesium: 2.1 ABO/Rh type and screen: O positive, antibody negative Interventions: 1600 Protonix 40 mg IV 1601 NS 500 mL IV 1623 K-Dur/Klor-Con 1747 Rocephin 1 g IV Emergency Department Course: Nursing notes and vitals reviewed. 1507 EKG obtained as noted above. 1508 IV was inserted and blood was drawn for laboratory testing, results above. 1511 I performed an exam of the patient as documented above. 1521 The patient provided a urine sample here in the emergency department. This was sent for laboratory testing, findings above. The patient provided a stool sample for laboratory testing as documentedabove. 1528 IV was inserted and blood was drawn for laboratory testing, results above. [address] Plaza of the hospitalist service from [facility] regarding patient's presentation, findings, and plan of care. [address] Kelley of the urology service regarding patient's presentation, findings, and plan of care. I personally reviewed the imaging, lab, and EKG results with the patient and answered all related questions prior to admission. Impression & Plan Medical Decision Making: Ayah Delaney is a 77 year old female who presents to the emergency department today for lab abnormality. She is nontoxic on arrival and in no distress. She has generalized abdominal tenderness. Review of records shows patient with baseline hemoglobin between 8-10 though over the past month she has had down trending hemoglobin it appears and today hemoglobin 8.4. She does have occult positive stools. I do suspect more of a slow GI bleed as no active bleeding on exam. She was given an empiric dose of Protonix. No indication for emergent transfusion at this point and time. I do suspect however that this is contributing to patient's overall feeling of weakness. She also has noted electrolyte abnormalities, most notably hypokalemia which was replaced. UA does suggest possible infection as well. Patient underwent a CT scan which showed obstructing stone. I covered patient with rocephin given concernfor possible infected stone though patient is not septic appearing at this time. I spoke to urology who is aware of patient. She was accepted by hospitalist for admission. Diagnosis: ICD-10-CM 1. Symptomatic anemia D64.9 ABO/Rh type and screen 2. Hypokalemia E87.6 3. Urinary tract infection without hematuria, site unspecified N39.0 4. Calculus of kidney N20.0 Disposition: The patient is admitted into the care of Dr. Plaza. Scribe Disclosure: I, Janay Whiteside, am serving as a scribe at 3:12 PM on 07/27/2018 to document services personally performed by Daniela Stratton DO based on my observations and the provider's statements to me. [facility] EMERGENCY DEPARTMENT Daniela Stratton DO 07/27/182019 documented in this encounter Miscellaneous Notes Plan of Care - Natviidad Gray RN - 07/29/2018 4:56 PM CDT Patient's After Visit Summary was reviewed with patient and/or Daughter . Patient verbalized understanding of After Visit Summary, recommended follow up and was given an opportunity to ask questions. Discharge medications sent home with patient/family: Scripts sent home with pt. Education given on med changes. Questions answered Discharged with daughter OBSERVATION patient END time: 1655 Plan of Care - Jyoti Smith RN - 07/29/2018 12:37 PM CDT PRIMARY DIAGNOSIS: kidney stone, symptomatic anemia, hypokalemia OUTPATIENT/OBSERVATION GOALS TO BE MET BEFORE DISCHARGE: 1. ADLs back to baseline: Yes 2. Activity and level of assistance: Ambulating independently. 3. Pain status: Pain free. 4. Return to near baseline physical activity: Yes Payroll And Benefits Manager Nurse Safe discharge environment identified: Yes Barriers to discharge: No Entered by: Jyoti Smith 07/29/2018 12:37 PM Please review provider order for any additional goals. Nurse to notify provider when observation goals have been met and patient is ready for discharge. BP 133/61 (BP Location: Left arm) Pulse 66 Temp 97.2 ??F (36.2 ??C) (Oral) Resp 16 Ht 1.575 m (5' 2) Wt 72.3 kg (159 lb 6.4 oz) SpO2 97% BMI 29.15 kg/m?? Pt continues to report SOB at rest, IS and deep breathing encouraged, provider saw pt. Has had multiple loose, dark black/green stools, reported she saw blood in her stool - was encouraged not to flush and allow staff to assess for blood. Plan to obtain a stool sample and send to lab. Hgb recheck 9.8. Pt down for EGD now. Plan of Care - Jyoti Smith RN - 07/29/2018 7:31 AM CDT PRIMARY DIAGNOSIS: kidney stone, symptomatic anemia, hypokalemia OUTPATIENT/OBSERVATION GOALS TO BE MET BEFORE DISCHARGE: ADLs back to baseline: Yes Activity and level of assistance: Ambulating independently. Pain status: Pain free. Return to near baseline physical activity: Yes Payroll And Benefits Manager Nurse Safe discharge environment identified: Yes Barriers to discharge: No Entered by: Jyoti Smith 07/29/2018 7:31 AM Please review provider order for any additional goals. Nurse to notify provider when observation goals have been met and patient is ready for discharge. BP 134/71 (BP Location: Left arm) Pulse 66 Temp 97.9 ??F (36.6 ??C) (Oral) Resp 16 Ht 1.575 m (5' 2) Wt 72.3 kg (159 lb 6.4 oz) SpO2 95% BMI 29.15 kg/m?? Orientation: A&Ox4 Neurological: in tact Pain status: denies Activity: up ad alannah - reports dyspnea on exertion - will be SBA for longer distances Peripheral neurovascular: denies numbness/tingling in BUE/BLE. Pt reports BLE have stopped aching after 1 unit PRBCs given last night. No edema noted Resp: pt reported dyspnea on exertion for longer distances - shorter distances to the bathroom from bed pt denies dyspnea. No SOB reported or assessed at rest Lungs: clear on auscultation Cardiac: WNL GI: pt reporting loose, dark stools. Encouraged to inform staff to assess stool for occult blood. Denies nausea. Bowel sounds present in all 4Qs : WNL - straining urine, stone obtained Skin: in tact IVF: PIV SL Meds: scheduled AM meds given Labs/imaging: Hgb 9.8, K+ 3.7 Diet: Regular - tolerating Consults: urology - see note Plan: encourage ambulation and PO intake. Lexiscan was done yesterday - see results. Plan of Care - Charles Tavares RN - 07/29/2018 3:58 AM CDT PRIMARY DIAGNOSIS: URETERAL STONE, HYPOKALEMIA, ANEMIA OUTPATIENT/OBSERVATION GOALS TO BE MET BEFORE DISCHARGE: 1. ADLs back to baseline: Yes 2. Activity and level of assistance: Ambulating independently. 3. Pain status: Pain free. 4. Return to near baseline physical activity: Yes Payroll And Benefits Manager Nurse Safe discharge environment identified: Yes Barriers to discharge: No Entered by: Charles Tavares 07/29/2018 3:58 AM Please review provider order for any additional goals. Nurse to notify provider when observation goals have been met and patient is ready for discharge. Temp: 97.6 ??F (36.4 ??C) Temp src: Oral BP: 132/60 Heart Rate: 62 Resp: 20 SpO2: 96 % O2 Device: None (Room air)Pt A&Ox4. Denies pain. LS clear across all andersen. Bowel sounds present in all quadrants. Pt reports loose stool. Peyton scan shows no significant abnormalities with a left ventricular ejection fraction of 77%. Latest Hgb of 8.0. Urology following. Will continue to monitor. Pt currently sleeping Plan of Care - Charles Tavares RN - 07/28/2018 11:52 PM CDT PRIMARY DIAGNOSIS: URETERAL STONE, HYPOKALEMIA, ANEMIA OUTPATIENT/OBSERVATION GOALS TO BE MET BEFORE DISCHARGE: 1. ADLs back to baseline: Yes 2. Activity and level of assistance: Ambulating independently. 3. Pain status: Pain free. 4. Return to near baseline physical activity: Yes Payroll And Benefits Manager Nurse Safe discharge environment identified: Yes Barriers to discharge: No Entered by: Charles Tavares 07/28/2018 11:52 PM Please review provider order for any additional goals. Nurse to notify provider when observation goals have been met and patient is ready for discharge. Temp: 97.6 ??F (36.4 ??C) Temp src: Oral BP: 132/60 Heart Rate: 62 Resp: 20 SpO2: 96 % O2 Device: None (Room air)Pt A&Ox4. Denies pain. LS clear across all andersen. Bowel sounds present in all quadrants. Pt reports loose stool. Peyton scan shows no significant abnormalities with a left ventricular ejection fraction of 77%. Latest Hgb of 8.0. Urology following. Will continue to monitor. Plan of Care - Karlee Valentin RN - 07/28/2018 8:37 PM CDT PRIMARY DIAGNOSIS: Ureteral stone, hypokalemia, symptomatic anemia OUTPATIENT/OBSERVATION GOALS TO BE MET BEFORE DISCHARGE: 1. ADLs back to baseline: Yes 2. Activity and level of assistance: Ambulating independently. 3. Pain status: Pain free. 4. Return to near baseline physical activity: Yes Payroll And Benefits Manager Nurse Safe discharge environment identified: Yes Barriers to discharge: No Entered by: Karlee Valentin 07/28/2018 9:38 PM Please review provider order for any additional goals. Nurse to notify provider when observation goals have been met and patient is ready for discharge. Blood given. VSS. No stone found while straining urine. Denies pain. Plan of Care - Jyoti Smith RN - 07/28/2018 11:45 AM CDT PRIMARY DIAGNOSIS: Kidney stone, symptomatic anemia, hypokalemia OUTPATIENT/OBSERVATION GOALS TO BE MET BEFORE DISCHARGE: 1. ADLs back to baseline: Yes 2. Activity and level of assistance: Ambulating independently. 3. Pain status: denies 4. Return to near baseline physical activity: Yes Payroll And Benefits Manager Nurse Safe discharge environment identified: Yes Barriers to discharge: No Entered by: Jyoti Smith 07/28/2018 11:45 AM Please review provider order for any additional goals. Nurse to notify provider when observation goals have been met and patient is ready for discharge. BP 125/54 (BP Location: Left arm) Pulse 66 Temp 97.4 ??F (36.3 ??C) (Oral) Resp 18 Ht 1.575 m (5' 2) Wt 72.3 kg (159 lb 6.4 oz) SpO2 94% BMI 29.15 kg/m?? Pt resting in bed, denying pain. Voiding frequently, no stone found when straining. Pt had soft BM, no blood assessed in stool. IVF stopped. K+ rechecked 4.2. Hgb rechecked 8.0. Plan for pt to have Lexiscan before discharge. Urology saw pt - see note. PT/OT cancelled, as pt is at baseline mobility. Plan of Care - Evie Hui PT - 07/28/2018 10:01 AM CDT Physical/Occupational Therapy- Orders cancelled as pt at baseline with mobility and waiting to pass kidney stone. No therapy needs at this time. Plan of Care - Jyoti Smith RN - 07/28/2018 8:53 AM CDT PRIMARY DIAGNOSIS: Kidney stone, symptomatic anemia, hypokalemia OUTPATIENT/OBSERVATION GOALS TO BE MET BEFORE DISCHARGE: ADLs back to baseline: Yes Activity and level of assistance: Ambulating independently. Pain status: reporting LLQ pain, burning, 2/10, declining pain interventions Return to near baseline physical activity: Yes Payroll And Benefits Manager Nurse Safe discharge environment identified: Yes Barriers to discharge: No Entered by: Jyoti Smith 07/28/2018 8:55 AM Please review provider order for any additional goals. Nurse to notify provider when observation goals have been met and patient is ready for discharge. BP 125/54 (BP Location: Left arm) Pulse 66 Temp 97.4 ??F (36.3 ??C) (Oral) Resp 18 Ht 1.575 m (5' 2) Wt 72.3 kg (159 lb 6.4 oz) SpO2 94% BMI 29.15 kg/m?? Orientation: A&Ox4 Neurological: in tact Pain status: 2/10 LLQ pain Activity: up ad alannah Resp: no SOB reported or assessed Lungs: clear on auscultation Cardiac: WNL GI: pt due to have a BM here - will assess for occult blood : WNL - denies dysuria, straining urine for stone Skin: in tact IVF: LR 100mL/hr Meds: scheduled AM meds given Labs/imaging: K+ 4.0 Diet: NPO Consults: urology, PT, SW, CC Plan: strain urine, IVF, monitor pain Plan of Care - Karlee Valentin RN - 07/28/2018 6:40 AM CDT PRIMARY DIAGNOSIS: Anemia OUTPATIENT/OBSERVATION GOALS TO BE MET BEFORE DISCHARGE: ADLs back to baseline: Yes Activity and level of assistance: Up with standby assistance. Pain status: Pain free. Return to near baseline physical activity: Yes Payroll And Benefits Manager Nurse Safe discharge environment identified: Yes Barriers to discharge: No Entered by: Karlee Valentin 07/28/2018 6:41 AM Please review provider order for any additional goals. Nurse to notify provider when observation goals have been met and patient is ready for discharge. Plan of Karlee Long RN - 07/28/2018 12:27 AM CDT PRIMARY DIAGNOSIS: Sympomatic anemia OUTPATIENT/OBSERVATION GOALS TO BE MET BEFORE DISCHARGE: 1. ADLs back to baseline: No 2. Activity and level of assistance: Up with standby assistance. 3. Pain status: Pain free. 4. Return to near baseline physical activity: No Payroll And Benefits Manager Nurse Safe discharge environment identified: Yes Barriers to discharge: No Entered by: Karlee Valentin 07/28/2018 12:28 AM Please review provider order for any additional goals. Nurse to notify provider when observation goals have been met and patient is ready for discharge. Plan of Care - Char Burden RN - 07/27/2018 9:26 PM CDT PRIMARY DIAGNOSIS: GENERIC NURSING/SYMPTOMATIC ANEMIA OUTPATIENT/OBSERVATION GOALS TO BE MET BEFORE DISCHARGE: 1. ADLs back to baseline: No 2. Activity and level of assistance: Independent 3. Pain status: Pain free. 4. Return to near baseline physical activity: Yes Payroll And Benefits Manager Nurse Safe discharge environment identified: Yes Barriers to discharge: No Vitals are Temp: 97.1 ??F (36.2 ??C) Temp src: Oral BP: 119/46 Pulse: 66 Resp: 20 SpO2: 97 %. Patient is Alert and Oriented x4. They are independent. Pt is a Regular diet. They are denying pain.Patient has Lactated Ringer running at 100 mL per hour. Hgb 8.7 in ED- monitor. Potassium recheck after 40 mEq in ED was 3.3-potassium protocol initiated and followed. Patient voiding spontaneously andwithout pain; straining urine for 3mm stone. No BM this shift. Patient will be NPO at 0000 for possible procedure. Continue POC. Please review provider order for any additional goals. Nurse to notify provider when observation goals have been met and patient is ready for discharge. Pharmacy-Admission Medication History - Emelina Riley [facility] - 07/27/2018 5:44 PM CDT Admission medication history interview status for this patient is complete. See [facility] admission navigator for allergy information, prior to admission medications and immunization status. Medication history interview source(s):Patient Medication history resources (including written lists, pill bottles, clinic record):Care everywhere Primary pharmacy:[facility] Changes made to [employer] medication list: Added: all Deleted: none Changed: none Actions taken by pharmacist (provider contacted, etc):Called [facility] for strengths of meds Additional medication history information:None Medication reconciliation/reorder completed by provider prior to medication history? No Do you take OTC medications (eg tylenol, ibuprofen, fish oil, eye/ear drops, etc)? Y(Y/N) For patients on insulin therapy: N (Y/N) Time spent in this activity: 20 min Prior to Admission medications Medication Sig Last Dose Taking? Auth Provider albuterol (PROAIR HFA/PROVENTIL HFA/VENTOLIN HFA) 108 (90 Base) MCG/ACT inhaler Inhale 2 puffs into the lungs every 6 hours as needed for shortness of breath / dyspnea or wheezing at prn Yes Unknown, Entered By History aspirin (ASA) 325 MG EC tablet Take 325 mg by mouth daily 07/27/2018 at Unknown time Yes Unknown, Entered By History Ferrous Gluconate 324 (37.5 Fe) MG TABS Take 1 tablet by mouth 2 times daily 07/27/2018 at am Yes Unknown, Entered By History fluticasone (FLONASE) 50 MCG/ACT nasal spray [place] 1 spray into both nostrils 2 times daily 07/27/2018at Unknown time Yes Unknown, Entered By History hydrOXYzine (VISTARIL) 25 MG capsule Take 25 mg by mouth nightly as needed for itching at prn Yes Unknown, Entered By History latanoprost (XALATAN) 0.005 % ophthalmic solution Place 1 drop into both eyes At Bedtime 07/26/2018 aths Yes Unknown, Entered By History levothyroxine (SYNTHROID/LEVOTHROID) 112 MCG tablet Take 112 mcg by mouth daily 07/27/2018 at Unknown time Yes Unknown, Entered By History omeprazole 20 MG tablet Take 20 mg by mouth Take 20 MG one to two times daily 07/27/2018 at am Yes Unknown, Entered By History sertraline (ZOLOFT) 100 MG tablet Take 150 mg by mouth daily 07/27/2018 at Unknown time Yes Unknown, Entered By History simvastatin (ZOCOR) 10 MG tablet Take 10 mg by mouth At Bedtime 07/26/2018 at hs Yes Unknown, Entered By History traZODone (DESYREL) 150 MG tablet Take 150 mg by mouth At Bedtime 07/26/2018 at hs Yes Unknown, Entered By History triamterene-HCTZ (MAXZIDE-25) 37.5-25 MG tablet Take 1 tablet by mouth daily 07/27/2018 at am Yes Unknown, Entered By History umeclidinium-vilanterol (ANORO ELLIPTA) 62.5-25 MCG/INH oral inhaler Inhale 1 puff into the lungs daily 07/27/2018 at Unknown time Yes Unknown, Entered By History valACYclovir (VALTREX) 500 MG tablet Take 500 mg by mouth Take 500 mg two times daily for 1 day for breakouts at prn Yes Unknown, Entered By History documented in this encounter Plan of Treatment Not on filedocumented as of this encounter Procedures Procedure Name Priority Date/Time Associated Comments Diagnosis H PYLORI ANTIGEN STOOL GH Routine 07/29/2018 Benign essentia l Results for 4:30 PM CDT hypertension this procedure are in the results section. UPPER GI ENDOSCOPY Routine 07/29/2018 Results f or 12:45 PM CDT this procedure are in the results section. ESOPHAGOGASTRODUODENOSCOPY 07/29/2018 Melena (EGD) 12:45 PM CDT HEMOGLOBIN STAT 07/29/2018 Symptomatic Results for 10:55 AM CDT anemia this procedure are in the results section. SURGICAL PATHOLOGY EXAM Routine 07/29/2018 Resu lts for 7:49 AM CDT this procedure are in the results section. STONE ANALYSIS Routine 07/29/2018 Symptomatic Results for 7:45 AM CDT anemia this procedure are in the results section. CBC WITH PLATELETS & Routine 07/29/2018 Symptomatic Results for DIFFERENTIAL 6:28 AM CDT anemia this procedure are in the results section. BASIC METABOLIC PANEL Routine 07/29/2018 Symptomatic Result s for 6:28 AM CDT anemia this procedure are in the results section. TRANSFUSE RED BLOOD CELL UNIT Routine 07/28/2018 6:46 PM CDT NM MPI WITH LEXISCAN Routine 07/28/2018 Results for 3:50 PM CDT this procedure are in the results section. BASIC METABOLIC PANEL Timed 07/28/2018 Symptomatic Result s for 10:17 AM CDT anemia this procedure are in the results section. CBC WITH PLATELETS Timed 07/28/2018 Symptomatic Results f or 10:17 AM CDT anemia this procedure are in the results section. POTASSIUM Timed 07/28/2018 Symptomatic Results for 3:22 AM CDT anemia this procedure are in the results section. POTASSIUM STAT 07/27/2018 Symptomatic Results for 8:14 PM CDT anemia this procedure are in the results section. CT ABDOMEN PELVIS W CONTRAST STAT 07/27/2018 Results for 4:14 PM CDT this procedure are in the results section. ISTAT CREATININE POCT Routine 07/27/2018 Result s for 3:28 PM CDT this procedure are in the results section. OCCULT BLOOD STOOL STAT 07/27/2018 Results f or 3:21 PM CDT this procedure are in the results section. TROPONIN I Routine 07/27/2018 Symptomatic Results for 3:21 PM CDT anemia this procedure are in the results section. ROUTINE UA WITH MICROSCOPIC STAT 07/27/2018 Symptomatic Results for 3:21 PM CDT anemia this procedure are in the results section. NT PROBNP INPATIENT Routine 07/27/2018 Symptomatic Results for 3:21 PM CDT anemia this procedure are in the results section. MAGNESIUM Routine 07/27/2018 Symptomatic Results for 3:21 PM CDT anemia this procedure are in the results section. COMPREHENSIVE METABOLIC PANEL STAT 07/27/2018 Symptomatic Results for 3:21 PM CDT anemia this procedure are in the results section. URINE CULTURE Routine 07/27/2018 Symptomatic Results for 3:21 PM CDT anemia this procedure are in the results section. BLOOD COMPONENT Routine 07/27/2018 Symptomatic Results for 3:08 PM CDT anemia this procedure are in the results section. CBC WITH PLATELETS & STAT 07/27/2018 Results for DIFFERENTIAL 3:08 PM CDT this procedure are in the results section. ABO/RH TYPE AND SCREEN STAT 07/27/2018 Symptomatic Resul ts for 3:08 PM CDT anemia this procedure are in the results section. EKG 12-LEAD, TRACING ONLY STAT 07/27/2018 Re sults for 3:07 PM CDT this procedure are in the results section. documented in this encounter Results H Pylori antigen stool (07/29/2018 4:30 PM CDT) Component Value Ref Test Analysis Performed At [facility] Range Method Time Signature Specimen Feces INFECTIOUS Description DISEASES DIAGNOSTIC LABORATORY H Pylori Negative for Helicobacter py tristian antigen by enzyme immunoassay. A negative result 08/02/2018 INFECTIOUS Antigen indicates the absence of H. pylori antigen or that the level of antigen is below the level 6:59 AM CDT DISEASES of detection. DIAGNOSTIC LABORATORY Specimen Anatomical Collection Method Collection Time Receive d Time (Source) Location / / Volume Laterality Stool specimen STOOL SPECIMEN / 07/29/2018 4:30 PM 11/2018 5:02 (specimen) Unknown CDT PM CDT Rocio Kilpatrick PA-C LAB - STOOLS ORDERABLES Performing Organization Address City/State/ZIP Code Phon e Number INFECTIOUS DISEASES [address] [place] [address] DIAGNOSTIC LABORATORY, [facility] INFECTIOUS DISEASES [address] [place] [address], A DIAGNOSTIC LABORATORY UPPER GI ENDOSCOPY (07/29/2018 12:45 PM CDT) Component Value Ref Test Analysis Performed At [facility] Range Method Time Signature Upper GI [facility] RADIO LOGY Endoscopy RESULTS Patient Name: Ayah Delaney ? Procedure Date: 07/29/2018 12:45 PM ? Accou nt Number: [id number] Date of : 1940 ?Admit Type: Inp atient Age: 77 ? Gender: Female Attending MD: Doroteo Rashid MD ? Total Sedation Time: _5_ minutes of continuous bedside 1:1 Instrument Name: 210 - Gastroscope ? Procedure: ?Upper GI endoscopy Indications: ?Melena Providers: ?Doroteo Rashid MD (Doctor) Referring MD: ? Medicines: ?Midazolam 1 mg IV, Fentanyl 50 micrograms IV, ?Benzocaine spray Complications: ?No immediate complications. Procedure: ?Pre-Anesthesia Assessment: ?- Prior to the procedure, a History and Physical ?was performed, and patient medications and ?allergies were reviewed. The patient is competent. ?The risks and benefits of the procedure and the ?sedation options and risks were discussed with the ?patient. All questions were answered and informed ?consent was obtained. Patient identification and ?proposed procedure were verified by the physician ?in the procedure room. Mental Status Examination: ?alert and oriented. Airway Examination: normal ?oropharyngeal airway and neck mobility. Respiratory ?Examination: clear to auscultation. CV Examination: ?regular rate and rhythm. ASA Grade Assessment: II - ?A patient with mild systemic disease. After ?reviewing the risks and benefits, the patient was ?deemed in satisfactory condition to undergo the ?procedure. The anesthesia plan was to use moderate ?sedation / analgesia (conscious sedation). ?Immediately prior to administration of medications, ?the patient was re-assessed for adequacy to receive ?sedatives. The heart rate, respiratory rate, oxygen ?saturations, blood pressure, adequacy of pulmonary ?ventilation, and response to care were monitored ?throughout the procedure. The physical status of ?the patient was re-assessed after the procedure. ?After obtaining informed consent, the endoscope was ?passed under direct vision. Throughout the ?procedure, the patient's blood pressure, pulse, and ?oxygen saturations were monitored continuously. The ?Olympus Gastroscope, Model # GIF-H190, [place] # ?210, SN # [id number] was introduced through the mouth, ?and advanced to the second part of duodenum. The ?upper GI endoscopy was accomplished without ?difficulty. The patient tolerated the procedure ?well. ? Findings: ? The esophagus was normal. ? The Z-line was found 37 cm from the incisors. ? Three non-bleeding gastric ulcers with no stigmata of bleeding were ? found in the gastric antrum. The largest lesion was 5 mm in largest ? dimension. ? A medium amount of food (residue) was found in the ga stric body. ? The examined duodenum was normal. ? Impression: ? - Normal esophagus. ?- Z-line, 37 cm from the incisors. ?- Non-bleeding gastric ulcers with no stigmata of ?bleeding. ?- Normal examined jodee waller. ?- No specimens collec william. Recommendation: ? - Return patient to hospital cramer for ongoing care. ?- Omeprazole 40 mg daily, she states she has not ?been taking regularly . ?- Avoid all NSAID medication, tylenol is safe to ?use. OK to use daily aspirin while on PPI. ?- Check for H. pylori . ?- Keep appointment fo r colonoscopy. ?- Repeat EGD in 8 weeks to doscument healing. My ?office will schedule. ? Electonically signed by Doroteo Rashid MD Doroteo Rashid MD 07/29/2018 1:29:30 PM I was physically present for the entire viewing portion of t he exam. Doroteo Rashid MD Number of Addenda: 0 Note Initiated On: 07/29/2018 12:45 PM MRN: ?[id number] Procedure Date: ? 07/29/2018 12:45:51 PM Total Procedure Duration: 0 hours 2 minutes 11 seconds Estimated Blood Loss: ? Scope In: 1:13:59 PM Scope Out: 1:16:10 PM Specimen (Source) Anatomical Collection Method Collection Time Re ceived Time Location / / Volume Laterality 07/29/2018 12:45 PM CDT Doroteo Rashid MD PROCEDURES Performing Organization Address City/State/ZIP Code Phon e Number RADIOLOGY RESULTS (ABNORMAL) Hemoglobin (07/29/2018 10:55 AM CDT) P athologist Signature Hemoglobin 9.8 (L) 11.7 - 15.7 07/29/2018 [place] g/dL 11:06 AM CDT [facility] Specimen Anatomical Collection Method Collection Time Receive d Time (Source) Location / / Volume Laterality Blood specimen 07/29/2018 10:55 9 (specimen) AM CDT 10:56 AM CDT Rocio Kilpatrick PA-C LAB - BLOOD ORDERABLES Performing Organization Address City/State/ZIP Code Phon e Number [place] [address] [address] [place] [address] [address] [place], [place] [address] [phone] Surgical pathology exam (07/29/2018 7:49 AM CDT) Component Value Ref Test Analysis Performed At [facility] gist Range Method Time Signature Copath Report Patient Name: AYAH DELANEY MR#: [id number] Specimen #: [id number] Collected: 07/29/2018 Received: 07/29/2018 Reported: 07/29/2018 10:43 Ordering Phy(s): [facility]ZA Additional Phy(s): ALCON STRATTON For improved result formatting, select 'View Enhanced Report Format' under Linked Documents section. SPECIMEN(S): Stone, kidney FINAL DIAGNOSIS: Kidney stone: - Calculus; gross examination and description only. - Chemical analysis ordered. ??See separate report. Electronically signed out by: Jorge Carrizales M.D. CLINICAL HISTORY: Kidney stone. GROSS: The specimen is received fresh, labeled with the patient's n nargis proper identifying information and designated kidney stone. ??It consists of a white, smooth surfaced ca lculus less than 0.1 cm. ??The specimen is sent for chemical analysis. ??See separate report. ??No microscopic s ections were made. ??(Dictated by: REYNA Braxton 07/29/2018 10:30 AM)/P. The technical component of this testing was completed at the [facility], with the professional compo nent performed at the [facility], [address] [place], [place] ??[address] [phone] ([phone]) CPT Codes: A: 70169-WB COLLECTION SITE: Client: [facility] Location: RHOBS (R) Specimen Anatomical Collection Method Collection Time Receive d Time (Source) Location / / Volume Laterality 07/29/2018 7:49 AM 9 8:29 CDT AM CDT Adrien MADRIGAL - SASHA ALLEN Performing Organization Address City/State/ZIP Code Phon e Number COPATH Stone analysis (07/29/2018 7:45 AM CDT) [facility] Method Time Signature Stone SEE NOTE 07/31/2018 [place] Composition 8:37 AM [facility] Comment: (Note) Sample composed primarily of organic mat erial not typically associated with calculi compos ition. No crystalline material identified. INTERPRETIVE INFORMATION: Calculi (Stone ) analysis Calculi are the products of physiologica l processes that yield crystalline compounds in a matrix of biological compounds and blood. ??Matrix components are not reported. ?? The clinically significant crystalline c omponents identified in calculi specimens are repo rted. ??Gross description may not be consistent with c omposition determined by FTIR analysis. Performed by [facility], [address] [place] [id number] [email or web address], Florentino Montes MD, Lab. Director Calculi Number Not Applicable 07/31/2018 8:37 AM C DT [facility] Calculi Size Not Applicable mm 07/31/2018 8:37 AM CDT [facility] Calculi Description Not Applicable 07/31/2018 8:37 AM CDT [facility] Stone Mass SEE NOTE mg 07/31/2018 8:37 AM CDT [facility] Comment: (Note) Sample mass < 2 mg. Accurate measurement of weight, size, number and description of the sample can not be determined. Specimen Anatomical Collection Method Collection Time Receive d Time (Source) Location / / Volume Laterality Calculus STONE - BODY 07/29/2018 7:45 AM 9 8:25 specimen MATERIAL / Unknown CDT AM CDT (specimen) Alcon Alas PA-C LAB - BODY FLUIDS ORDERABLES Performing Organization Address City/State/ZIP Code Phon e Number [place] [address] [address] [place], [place] [address] [facility] [address] [phone] (ABNORMAL) CBC with platelets differential (07/29/2018 6:28 AM CDT) [facility] gist Method Time Signature WBC 7.5 4.0 - 07/29/2018 [facility] 11.0 6:45 AM [facility] 10e9/L [facility] RBC Count 3.98 3.8 - 5.2 07/29/2018 [facility] 10e12/L 6:45 AM [facility] Hemoglobin 9.8 (L) 11.7 - 07/29/2018 [facility] 15.7 g/dL 6:45 AM [facility] Hematocrit 33.1 (L) 35.0 - 07/29/2018 [facility] 47.0 % 6:45 AM [facility] MCV 83 78 - 100 07/29/2018 [facility] fl 6:45 AM [facility] MCH 24.6 (L) 26.5 - 07/29/2018 [facility] 33.0 pg 6:45 AM [facility] MCHC 29.6 (L) 31.5 - 07/29/2018 [facility] 36.5 g/dL 6:45 AM [facility] RDW 19.6 (H) 10.0 - 07/29/2018 [facility] 15.0 % 6:45 AM [facility] Platelet Count 333 150 - 450 07/29/2018 [facility] 10e9/L 6:45 AM [facility] Diff Method Automated 07/29/2018 [facility] Method 6:45 AM [facility] % Neutrophils 73.7 % 07/29/2018 [facility] 6:45 AM [facility] % Lymphocytes 11.2 % 07/29/2018 [facility] 6:45 AM [facility] % Monocytes 8.2 % 07/29/2018 [facility] 6:45 AM [facility] % Eosinophils 5.9 % 07/29/2018 [facility] 6:45 AM [facility] % Basophils 0.7 % 07/29/[facility] % Immature 0.3 % 07/29/2018 [place] Granulocytes 6:45 AM [facility] Nucleated RBCs 0 0 /100 07/29/2018 [facility] 6:45 AM [facility] Absolute 5.6 1.6 - 8.3 07/29/2018 [place] Neutrophil 10e9/L 6:45 AM [facility] Absolute 0.8 0.8 - 5.3 07/29/2018 [place] Lymphocytes 10e9/L 6:45 AM [facility] Absolute 0.6 0.0 - 1.3 07/29/2018 [place] Monocytes 10e9/L 6:45 AM [facility] Absolute 0.4 0.0 - 0.7 07/29/2018 [place] Eosinophils 10e9/L 6:45 AM [facility] Absolute 0.1 0.0 - 0.2 07/29/2018 [place] Basophils 10e9/L 6:45 AM [facility] Abs Immature 0.0 0 - 0.4 07/29/2018 [place] Granulocytes 10e9/L 6:45 AM [facility] Absolute 0.0 07/29/2018 [place] Nucleated RBC 6:45 AM [facility] Specimen Anatomical Collection Method Collection Time Receive d Time (Source) Location / / Volume Laterality Blood specimen 07/29/2018 6:28 AM 019 6:29 (specimen) CDT AM CDT Mee Corral PA-C LAB - BLOOD ORDERABLES Performing Organization Address City/State/ZIP Code Phon e Number M [facility] [address] [place], [place] [address] [facility] [address] [phone] (ABNORMAL) Basic metabolic panel (07/29/2018 6:28 AM CDT) athologist Signature Sodium 141 133 - 144 07/29/2018 [place] mmol/L 6:54 AM [facility] Potassium 3.7 3.4 - 5.3 07/29/2018 [place] mmol/L 6:54 AM [facility] Chloride 109 94 - 109 07/29/2018 [place] mmol/L 6:54 AM [facility] Carbon Dioxide 30 20 - 32 07/29/2018 [place] mmol/L 6:59 AM [facility] Anion Gap 2 (L) 3 - 14 07/29/2018 [place] mmol/L 6:59 AM [facility] Glucose 99 70 - 99 07/29/2018 [place] mg/dL 6:59 AM [facility] Urea Nitrogen 10 7 - 30 07/29/2018 [place] mg/dL 6:59 AM [facility] Creatinine 0.91 0.52 - 07/29/2018 [place] 1.04 mg/dL 6:59 AM [facility] GFR Estimate 61 >60 07/29/2018 [place] mL/min/{1. 6:59 AM [facility] 73_m2} HOSPITAL Comment: Non GFR Calc Starting 03/09/2018, serum creatinine ba sed estimated GFR (eGFR) will be calculated using the Chronic Kidney Dise [place] Epidemiology Collaboration (CKD-EPI) equation. GFR Estimate If 71 >60 mL/min/{1.73_m2} 07/29/2018 6: 59 AM [facility] Comment: GFR Calc Starting 03/09/2018, serum creatinine ba sed estimated GFR (eGFR) will be calculated using the Chronic Kidney Dise [place] Epidemiology Collaboration (CKD-EPI) equation. Calcium 8.9 8.5 - 10.1 mg/dL 07/29/2018 6:59 AM [facility] Specimen Anatomical Collection Method Collection Time Receive d Time (Source) Location / / Volume Laterality Blood specimen 07/29/2018 6:28 AM 019 6:29 (specimen) CDT AM T Mee Corral PA-C LAB - BLOOD ORDERABLES Performing Organization Address City/State/ZIP Code Phon e Number [place] [address] [address] [place] [address] [phone] Transfuse red blood cell unit (07/28/2018 10:17 PM CDT) Mee Corral [facility] IP NURSING BLOOD ADMINISTRAT ON Transfuse red blood cell unit (07/28/2018 10:17 PM CDT) Mee Corral [facility] IP NURSING BLOOD ADMINISTRAT ON NM MPI w Lexiscan (07/28/2018 3:50 PM CDT) Anatomical Region Laterality Modality Chest Nuclear Medicine Specimen (Source) Anatomical Location Collection Method / Collectio n Time Received Time / Laterality Volume Narrative 07/28/2018 4:30 PM CDT GATED MYOCARDIAL PERFUSION SCINTIGRAPHY WITH INTRAVENOUS PHARMACOLOGIC VASODILATATION LEXISCAN -ONE DAY STUDY 07/28/2018 3:50 PM ??AYAH Mo DELANEY ??77 years ??Female ??1940. Indication/Clinical History: Shortness o f breath Impression 1. ??Myocardial perfusion imaging using single isotope technique demonstrated normal myocardial perfusion . 2. Gated images demonstrated normal wall motion. ??The left ventricular systolic function is normal calculated e jection fraction of 77%. Procedure Pharmacologic stress testing was perform ed with Lexiscan at a rate of 0.08 mg/ml rapid bolus injection, for 15 seconds, 0.4 mg/5ml intravenously. Low-level exercise was no t performed along with the vasodilator infusion. ??The heart rate w as 66 at baseline and mahamed to 93 beats per minute during the Lexiscan infusion. The rest blood pressure was 102/57 mmHg and was 103/45 mm Hg during Lexiscan infusion. The patient experienced shortn ess of breath ??during the test. Myocardial perfusion imaging was perform ed at rest, approximately 45 minutes after the injection intravenousl y of 11 mCi of Tc-99m Myoview. At peak pharmacologic effect, 10-20 seco nds after Lexiscan, ??the patient was injected intravenously with 33 mCi of ??Tc-99m Myoview. The post-stress tomographic imaging was perf ormed approximately 60 minutes after stress. EKG Findings The resting EKG demonstrated sinus rhyth m with mild nonspecific ST segment changes. The stress EKG demonstr ated no significant ST segment changes. Tomographic Findings Overall, the study quality is adequate. Body mass index 29.15 . On the stress images, no significant perfusion defects were present. On the rest images, no significant perfusion de fects were seen . Gated images demonstrated normal wall motion. The lef t ventricular ejection fraction was calculated to be 77%. TID w as absent. DARRELL HUMPHREY MD Procedure Note Ip, Darrell Escobedo MD - 07/28/2018Forma tting of this note might be different from the original. GATED MYOCARDIAL PERFUSION SCINTIGRAPHY WITH INTRAVENOUS PHARMACOLOGIC VASODILATATION LEXISCAN -ONE DAY STUDY 07/28/2018 3:50 PM AYAH DELANEY 77 year s Female 1940. Indication/Clinical History: Shortness o f breath Impression 1. Myocardial perfusion imaging using si ngle isotope technique demonstrated normal myocardial perfusion . 2. Gated images demonstrated normal wall motion. The left ventricular systolic function is normal calculated e jection fraction of 77%. Procedure Pharmacologic stress testing was perform ed with Lexiscan at a rate of 0.08 mg/ml rapid bolus injection, for 15 seconds, 0.4 mg/5ml intravenously. Low-level exercise was no t performed along with the vasodilator infusion. The heart rate was 66 at baseline and mahamed to 93 beats per minute during the Lexiscan infusion. The rest blood pressure was 102/57 mmHg and was 103/45 mm Hg during Lexiscan infusion. The patient experienced shortn ess of breath during the test. Myocardial perfusion imaging was perform ed at rest, approximately 45 minutes after the injection intravenousl y of 11 mCi of Tc-99m Myoview. At peak pharmacologic effect, 10-20 seco nds after Lexiscan, the patient was injected intravenously with 33 mCi of Tc-99m Myoview. The post-stress tomographic imaging was perf ormed approximately 60 minutes after stress. EKG Findings The resting EKG demonstrated sinus rhyth m with mild nonspecific ST segment changes. The stress EKG demonstr ated no significant ST segment changes. Tomographic Findings Overall, the study quality is adequate. Body mass index 29.15 . On the stress images, no significant perfusion defects were present. On the rest images, no significant perfusion de fects were seen . Gated images demonstrated normal wall motion. The lef t ventricular ejection fraction was calculated to be 77%. TID w as absent. DARRELL HUMPHREY MD Mee Corral PA-C IMG NM ORDERABLES (ABNORMAL) CBC with platelets (07/28/2018 10:17 AM CDT) Analysis Performed At Patho logist Time Signature WBC 7.6 4.0 - 11.0 07/28/2018 [facility] 10e9/L 10:37 AM [facility] RBC Count 3.32 (L) 3.8 - 5.2 07/28/2018 [facility] 10e12/L 10:37 AM [facility] Hemoglobin 8.0 (L) 11.7 - 07/28/2018 [facility] 15.7 g/dL 10:37 AM [facility] Hematocrit 27.1 (L) 35.0 - 07/28/2018 [facility] 47.0 % 10:37 AM [facility] MCV 82 78 - 100 07/28/2018 [facility] fl 10:37 AM [facility] MCH 24.1 (L) 26.5 - 07/28/2018 [facility] 33.0 pg 10:37 AM [facility] MCHC 29.5 (L) 31.5 - 07/28/2018 [facility] 36.5 g/dL 10:37 AM [facility] RDW 19.9 (H) 10.0 - 07/28/2018 [facility] 15.0 % 10:37 AM [facility] Platelet Count 335 150 - 450 07/28/2018 [facility] 10e9/L 10:37 AM [facility] Specimen Anatomical Collection Method Collection Time Receive d Time (Source) Location / / Volume Laterality Blood specimen 07/28/2018 10:17 9 (specimen) AM CDT 10:18 AM CDT Mee Corral PA-C LAB - BLOOD ORDERABLES Performing Organization Address City/State/ZIP Code Phon e Number M [facility] [address] [address] [facility]OSP[facility] [address] [phone] (ABNORMAL) Basic metabolic panel (07/28/2018 10:17 AM CDT) P athologist Signature Sodium 142 133 - 144 07/28/2018 [facility] mmol/L 10:43 AM [facility] Potassium 4.2 3.4 - 5.3 07/28/2018 [facility] mmol/L 10:43 AM [facility] Chloride 112 (H) 94 - 109 07/28/2018 [place] mmol/L 10:43 AM [facility] Carbon Dioxide 27 20 - 32 07/28/2018 [place] mmol/L 10:50 AM [facility] Anion Gap 3 3 - 14 07/28/2018 [place] mmol/L 10:50 AM [facility] Glucose 95 70 - 99 07/28/2018 [place] mg/dL 10:50 AM [facility] Urea Nitrogen 11 7 - 30 07/28/2018 [place] mg/dL 10:50 AM [facility] Creatinine 0.95 0.52 - 07/28/2018 [place] 1.04 mg/dL 10:50 AM [facility] GFR Estimate 58 (L) >60 07/28/2018 [place] mL/min/{1. 10:50 AM [facility] 73_m2} HOSPITAL Comment: Non GFR Calc Starting 03/09/2018, serum creatinine ba sed estimated GFR (eGFR) will be calculated using the Chronic Kidney Dise [place] Epidemiology Collaboration (CKD-EPI) equation. GFR Estimate If 67 >60 mL/min/{1.73_m2} 07/28/2018 10 :50 AM [facility] Comment: GFR Calc Starting 03/09/2018, serum creatinine ba sed estimated GFR (eGFR) will be calculated using the Chronic Kidney Dise [place] Epidemiology Collaboration (CKD-EPI) equation. Calcium 8.4 (L) 8.5 - 10.1 mg/dL 07/28/2018 10:50 AM [facility] Specimen Anatomical Collection Method Collection Time Receive d Time (Source) Location / / Volume Laterality Blood specimen 07/28/2018 10:17 9 (specimen) AM CDT 10:18 AM CDT Mee Corral PA-C LAB - BLOOD ORDERABLES Performing Organization Address City/State/ZIP Code Phon e Number M [facility] [address] [place], [place] [address] [facility] [address] [place], [place] [address] [phone] Potassium (07/28/2018 3:22 AM CDT) athologist Signature Potassium 4.0 3.4 - 5.3 07/28/2018 [facility] mmol/L 3:42 AM CDT HOSPITAL Specimen Anatomical Collection Method Collection Time Receive d Time (Source) Location / / Volume Laterality Blood specimen 07/28/2018 3:22 AM 019 3:23 (specimen) CDT AM CDT Adrien Plaza MD LAB - BLOOD ORDERABLES Performing Organization Address City/[facility]/ZIP [facility] [place] Number [facility] [address] [place], [place] [address] [place] [address] [address] [place], [place] [address], [facility] [phone] (ABNORMAL) Potassium (07/27/2018 8:14 PM CDT) athologist Signature Potassium 3.3 (L) 3.4 - 5.3 07/27/2018 [place] mmol/L 8:37 PM CDT [facility] Specimen Anatomical Collection Method Collection Time Receive d Time (Source) Location / / Volume Laterality Blood specimen 07/27/2018 8:14 PM 019 8:15 (specimen) CDT PM CDT Adrien Plaza MD LAB - BLOOD ORDERABLES Performing Organization Address City/[facility]/ZIP [facility] e Number [facility] [address] [place], [place] [address] [place] [address] [address] [place], [place] [address], [facility] [phone] Abd/pelvis CT, IV contrast only TRAUMA / AAA (07/27/2018 4:14 PM CDT) Anatomical Region Laterality Modality Abdomen/Pelvis, SUBRAD CT BODY, UMP CT ABDOMEN PELVIS, Computed Tomography RAD CT Specimen (Source) Anatomical Location Collection Method / Collectio n Time Received Time / Laterality Volume Impressions 07/27/2018 4:33 PM CDT IMPRESSION: 1. 0.3 cm distal left ureteral stone cau sing only mild left hydronephrosis and hydroureter. No other urinary tract calculi bilaterally. No evidence of right hydron ephrosis. 2. Bilateral renal cysts are noted and a re unremarkable. 3. No bowel obstruction or diverticuliti s. Previous right hemicolectomy. ELSIE MCCLURE MD Narrative 07/27/2018 4:[address] ABDOMEN AND PELVIS WITH CONTRAST 07/27/2018 4:14 PM HISTORY: Abdominal pain, unspecified. TECHNIQUE: Axial images from the lung ba ses to the symphysis are performed with additional coronal reform atted images. 70 mL of Isovue 370 are given intravenously. Radiation d ose for this scan was reduced using automated exposure control, adjust ment of the mA and/or kV according to patient size, or iterative reconstruction technique. FINDINGS: The lung bases are clear. Abdomen: The liver, spleen, gallbladder, pancreas and adrenal glands are unremarkable. There is mild left hyd ronephrosis with a distal left ureteral stone on series 2, image 52 lindsey suring 0.3 cm. No evidence of right hydronephrosis or urinary tract ca lculi. Cyst is present in the lateral right kidney which appears to be a simple cyst measuring 1.5 cm. No other renal calculi are appreciat ed. A few parapelvic left renal cysts are also noted. No enlarged abdominal lymph nodes. The bowel is normal in caliber without obstr uction or diverticulitis. Patient is status post right hemicolecto my. Anastomosis is patent. Aorta demonstrates calcified plaque with out aneurysm or dissection. Pelvis: The bladder and rectum are unrem arkable. Uterus is not identified. No enlarged lymph nodes. Bon e window examination demonstrates lower lumbar bony fusion fr om L3 through S1. Procedure Note Elsie Mcclure MD - 07/27/2018Form atting of this note might be different from the original. CT ABDOMEN AND PELVIS WITH CONTRAST 2018 4:14 PM HISTORY: Abdominal pain, unspecified. TECHNIQUE: Axial images from the lung ba ses to the symphysis are performed with additional coronal reform atted images. 70 mL of Isovue 370 are given intravenously. Radiation d ose for this scan was reduced using automated exposure control, adjust ment of the mA and/or kV according to patient size, or iterative reconstruction technique. FINDINGS: The lung bases are clear. Abdomen: The liver, spleen, gallbladder, pancreas and adrenal glands are unremarkable. There is mild left hyd ronephrosis with a distal left ureteral stone on series 2, image 52 lindsey suring 0.3 cm. No evidence of right hydronephrosis or urinary tract ca lculi. Cyst is present in the lateral right kidney which appears to be a simple cyst measuring 1.5 cm. No other renal calculi are appreciat ed. A few parapelvic left renal cysts are also noted. No enlarged abdominal lymph nodes. The bowel is normal in caliber without obstr uction or diverticulitis. Patient is status post right hemicolecto my. Anastomosis is patent. Aorta demonstrates calcified plaque with out aneurysm or dissection. Pelvis: The bladder and rectum are unrem arkable. Uterus is not identified. No enlarged lymph nodes. Bon e window examination demonstrates lower lumbar bony fusion fr om L3 through S1. IMPRESSION: 1. 0.3 cm distal left ureteral stone cau sing only mild left hydronephrosis and hydroureter. No other urinary tract calculi bilaterally. No evidence of right hydron ephrosis. 2. Bilateral renal cysts are noted and a re unremarkable. 3. No bowel obstruction or diverticuliti s. Previous right hemicolectomy. ELSIE MCCLURE MD Daniela Stratton DO IMG CT ORDERABLES (ABNORMAL) Creatinine POCT (07/27/2018 3:28 PM CDT) athologist Signature Creatinine 1.0 0.52 - 07/27/2018 [facility] 1.04 mg/dL 3:31 PM CDT TEST, HANDHELD METER GFR Estimate 54 (L) >60 07/27/2018 [facility] mL/min/{1. 3:31 PM CDT TEST, HANDHELD 73_m2} METER GFR Estimate If 65 >60 07/27/2018 [facility] Black mL/min/{1. 3:31 PM CDT TEST, HANDHELD 73_m2} METER Specimen Anatomical Collection Method Collection Time Receive d Time (Source) Location / / Volume Laterality 07/27/2018 3:28 PM 9 3:31 CDT PM CDT Daniela BRODERICK POCT Performing Organization Address City/State/ZIP Code Phon e Number FV POINT OF CARE TEST, HANDHELD METER POINT OF CARE TEST, HANDHELD METER Urine Culture Aerobic Bacterial (07/27/2018 3:21 PM CDT) Component Value Ref Test Analysis Performed At [facility] Range Method Time Signature Specimen Midstream Urine INFECTIOUS Description DISEASES DIAGNOSTIC LABORATORY Special Specimen received 07/27/2018 INFECTIOUS Requests in preservative 5:52 PM CDT DISEASES DIAGNOSTIC LABORATORY Culture Micro <10,000 colonies/mL 07/28/2018 INFEC TIOUS urogenital yessica 4:07 PM CDT DISEASES DIAGNOSTIC LABORATORY Culture Micro Susceptibility 07/28/2018 INFECTIOUS testing not 4:07 PM CDT DISEASES routinely done DIAGNOSTIC LABORATORY Specimen (Source) Anatomical Collection Method Collection Time Re ceived Time Location / / Volume Laterality Examination of 07/27/2018 3:21 07/27/2018 4:22 midstream urine PM CDT PM CDT specimen (procedure) Daniela Stratton DO LAB - MICRO GENERAL ORDERABL ES Performing Organization Address City/[facility]/ZIP [facility] [place] INFECTIOUS DISEASES [address] [place] [address] DIAGNOSTIC LABORATORY, [facility] INFECTIOUS DISEASES [address] [place] [address], [place] DIAGNOSTIC LABORATORY Magnesium (07/27/2018 3:21 PM CDT) athologist Signature Magnesium 2.1 1.6 - 2.3 07/27/2018 [facility] mg/dL 4:07 PM [facility] Specimen Anatomical Collection Method Collection Time Receive d Time (Source) Location / / Volume Laterality 07/27/2018 3:21 PM 9 3:41 CDT PM CDT Daniela Stratton DO LAB - BLOOD ORDERABLES Performing Organization Address [facility] Phon e Number M [place] [address] [address] [facility] [address] [phone] Troponin I (07/27/2018 3:21 PM CDT) athologist Signature Troponin I ES <0.015 0.000 - 07/27/2018 [place] 0.045 ug/L 4:05 PM T [facility] Comment: The 99th percentile for upper reference range is 0.045 ug/L. ??Troponin values in the range of 0.045 - 0.120 ug/L may b e associated with risks of adverse clinical events. Specimen Anatomical Collection Method Collection Time Receive d Time (Source) Location / / Volume Laterality 07/27/2018 3:21 PM 9 3:41 CDT PM CDT Daniela Stratton DO LAB - BLOOD ORDERABLES Performing Organization Address City/[facility]/ZIP Code Julian Aviles [facility] [address], [place] [address] [place] [address] [address] [address], [facility] [phone] Nt probnp inpatient (07/27/2018 3:21 PM CDT) athologist Signature N-Terminal Pro 197 0 - 1,800 07/27/2018 [place] BNP Inpatient pg/mL 4:05 PM [facility] Comment: Reference range shown and results flagge d as abnormal are suggested inpatient cut points for confirming diagnosis if C HF in an acute setting. Establishing a baseline value for each individual lazaro ent is useful for follow-up. An inpatient or emergency department NT-pro PBNP <300 pg/mL effectively rules out acute CHF, with 99% negative predictive value. The outpatient non-acute reference range for ruling out CHF is: 0-125 pg/mL (age 18 to less than 75) 0-450 pg/mL (age 75 yrs and older) Specimen Anatomical Collection Method Collection Time Receive d Time (Source) Location / / Volume Laterality 07/27/2018 3:21 PM 9 3:41 CDT PM CDT Daniela Stratton DO LAB - BLOOD ORDERABLES Performing Organization Address City/[facility]/ZIP [facility] [place] rhonda Aviles [facility] [address], [place] [address] [facility] [address] [place], [place] [address], [facility] [phone] (ABNORMAL) Comprehensive metabolic panel (07/27/2018 3:21 PM CDT) athologist Signature Sodium 141 133 - 144 07/27/2018 [place] mmol/L 3:55 PM [facility] Potassium 2.9 (L) 3.4 - 5.3 07/27/2018 [place] mmol/L 3:55 PM [facility] Chloride 105 94 - 109 07/27/2018 [place] mmol/L 3:55 PM [facility] Carbon Dioxide 30 20 - 32 07/27/2018 [place] mmol/L 4:00 PM [facility] Anion Gap 6 3 - 14 07/27/2018 [place] mmol/L 4:00 PM [facility] Glucose 86 70 - 99 07/27/2018 [place] mg/dL 4:00 PM [facility] Urea Nitrogen 15 7 - 30 07/27/2018 [place] mg/dL 4:00 PM [facility] Creatinine 0.99 0.52 - 07/27/2018 [facility] 1.04 mg/dL 4:00 PM [facility] GFR Estimate 55 (L) >60 07/27/2018 [place] mL/min/{1. 4:00 PM [facility] 73_m2} HOSPITAL Comment: Non GFR Calc Starting 03/09/2018, serum creatinine ba sed estimated GFR (eGFR) will be calculated using the Chronic Kidney Dise [place] Epidemiology Collaboration (CKD-EPI) equation. GFR Estimate If 64 >60 mL/min/{1.73_m2} 07/27/2018 4: 00 PM [facility] Comment: GFR Calc Starting 03/09/2018, serum creatinine ba sed estimated GFR (eGFR) will be calculated using the Chronic Kidney Dise [place] Epidemiology Collaboration (CKD-EPI) equation. Calcium 8.6 8.5 - 10.1 07/27/2018 4:00 PM [place] R IDGES mg/dL [facility] Bilirubin Total 0.3 0.2 - 1.3 mg/dL 07/27/2018 4:03 PM [facility] Albumin 3.2 (L) 3.4 - 5.0 g/dL 07/27/2018 4:03 PM [facility] Protein Total 6.5 (L) 6.8 - 8.8 g/dL 07/27/2018 4:03 PM [facility] Alkaline Phosphatase 104 40 - 150 U/L 07/27/2018 4:03 PM [facility] ALT 19 0 - 50 U/L 07/27/2018 4:03 PM [place] S [facility] AST 17 0 - 45 U/L 07/27/2018 4:03 PM [facility] Specimen Anatomical Collection Method Collection Time Receive d Time (Source) Location / / Volume Laterality Blood specimen 07/27/2018 3:21 PM 019 3:41 (specimen) CDT PM CDT Daniela Stratton DO LAB - BLOOD ORDERABLES Performing Organization Address City/[facility]/ZIP [facility] Phon e Number M [facility] [address] [place] [address] [facility] [address] [place], [place] [address], [facility] [phone] [facility] [address] [place] [address], [facility] (ABNORMAL) Stool: occult blood (07/27/2018 3:21 PM CDT) [facility] Method [place] Signature Occult Blood Positive (A) NEG^Negat 07/27/2018 [place] sunil 3:46 PM [facility] Specimen Anatomical Collection Method Collection Time Receive d Time (Source) Location / / Volume Laterality Stool specimen 07/27/2018 3:21 PM 019 3:43 (specimen) CDT PM CDT Daniela Stratton DO LAB - STOOLS ORDERABLES Performing Organization Address City/[facility] Phon e Number M [facility] [address], [place] [address] [facility] [address] [phone] 7, [facility] [phone] (ABNORMAL) UA with Microscopic (07/27/2018 3:21 PM CDT) [facility] Method Time Signature Color Urine Yellow 07/27/2018 [place] 4:03 PM [facility] Appearance Urine Slightly 07/27/2018 [place] Cloudy 4:03 PM [facility] Glucose Urine Negative NEG^Negat 07/27/2018 [place] sunil mg/dL 4:03 PM [facility] Bilirubin Urine Negative NEG^Negat 07/27/2018 [place] sunil 4:03 PM [facility] Ketones Urine Negative NEG^Negat 07/27/2018 [place] sunil mg/dL 4:03 PM [facility] Specific [place] 1.025 1.003 - 07/27/2018 [place] Urine 1.035 4:03 PM [facility] Blood Urine Negative NEG^Negat 07/27/2018 [place] sunil 4:03 PM [facility] pH Urine 6.0 5.0 - 7.0 07/27/2018 [place] pH 4:03 PM [facility] Protein Albumin Negative NEG^Negat 07/27/2018 [place] Urine sunil mg/dL 4:03 PM [facility] Urobilinogen Normal 0.0 - 2.0 07/27/2018 [place] mg/dL mg/dL 4:03 PM [facility] Nitrite Urine Negative NEG^Negat 07/27/2018 [place] sunil 4:03 PM [facility] Leukocyte Trace (A) NEG^Negat 07/27/2018 [place] Esterase Urine sunil 4:03 PM [facility] Source Midstream 07/27/2018 [place] Urine 3:23 PM [facility] WBC Urine 6 (H) 0 - 5 07/27/2018 [facility] /HPF 4:03 PM [facility] RBC Urine 2 0 - 2 07/27/2018 [facility] /HPF 4:03 PM [facility] Bacteria Urine Few (A) NEG^Negat 07/27/2018 [place] sunil /HPF 4:03 PM [facility] Squamous <1 0 - 1 07/27/2018 [place] Epithelial /HPF /HPF 4:03 PM [facility] Mucous Urine Present (A) NEG^Negat 07/27/2018 [facility] sunil /LPF 4:03 PM [facility] Amorphous Few (A) NEG^Negat 07/27/2018 [place] Crystals sunil /HPF 4:03 PM [facility] Specimen (Source) Anatomical Collection Method Collection Time Re ceived Time Location / / Volume Laterality Examination of 07/27/2018 3:21 07/27/2018 3:44 midstream urine PM T [facility] specimen (procedure) Daniela Stratton DO LAB - URINE ORDERABLES Performing Organization Address City/State/ZIP Code Phon e Number M [facility] [address], [place] [address] [facility] [address] [place], [place] [address], [facility] [phone] Blood component (07/27/2018 3:08 PM CDT) [facility] Method Time Signature Unit Number [id number] 07/28/2018 [facility] 6:37 PM [facility] Blood Red Blood 07/28/2018 [facility] Component Cells 6:37 PM [facility] Leukocyte HOSPITAL Reduced Division 00 07/28/2018 [facility] Number 6:37 PM [facility] Status of Released to 07/28/2018 [place] Unit care unit 11:52 PM [facility] Blood Product [id number] 07/28/2018 [facility] Code 6:37 PM [facility] Unit Status ISS [facility] Specimen Anatomical Collection Method Collection Time Receive d Time (Source) Location / / Volume Laterality 07/27/2018 3:08 PM 9 3:38 CDT PM CDT Daniela Stratton DO LABORATORY Performing Organization Address City/State/ZIP Code Phon e Number M [place] [address] [address], [place] [address] [facility] [address] [place], [place] [address], [facility] [phone] ABO/Rh type and screen (07/27/2018 3:08 PM CDT) [facility] Signature Units Ordered 1 07/28/2018 [facility] 6:37 PM [facility] ABO O 07/27/2018 [facility] 4:12 PM [facility] RH(D) Pos [facility] Antibody Neg 07/27/2018 [facility] Screen 4:12 PM [facility] Test Valid [place] 07/27/2018 [facility] Only At [facility] 3:45 PM [facility] Specimen 07/30/2018 07/27/2018 [facility] Expires 3:45 PM [facility] Specimen Anatomical Collection Method Collection Time Receive d Time (Source) Location / / Volume Laterality Blood specimen 07/27/2018 3:08 PM 2 019 3:38 (specimen) CDT PM CDT Daniela Stratton DO LAB - BLOOD BANK TEST ORDER Performing Organization Address City/State/ZIP Code Phon e Number M [facility] [address], [place] [address] [facility] [address] [id number] [facility] [phone] (ABNORMAL) CBC with platelets differential (07/27/2018 3:08 PM CDT) [facility] Method Time Signature WBC 6.6 4.0 - 07/27/2018 [facility] 11.0 3:45 PM [facility] 10e9/L [facility] RBC Count 3.46 (L) 3.8 - 5.2 07/27/2018 [facility] 10e12/L 3:45 PM [facility] Hemoglobin 8.4 (L) 11.7 - 07/27/2018 [facility] 15.7 g/dL 3:45 PM [facility] Hematocrit 28.3 (L) 35.0 - 07/27/2018 [facility] 47.0 % 3:45 PM [facility] MCV 82 78 - 100 07/27/2018 [facility] fl 3:45 PM [facility] MCH 24.3 (L) 26.5 - 07/27/2018 [facility] 33.0 pg 3:45 PM [facility] MCHC 29.7 (L) 31.5 - 07/27/2018 [facility] 36.5 g/dL 3:45 PM [facility] RDW 19.7 (H) 10.0 - 07/27/2018 [facility] 15.0 % 3:45 PM [facility] Platelet Count 394 150 - 450 07/27/2018 [facility] 10e9/L 3:45 PM [facility] Diff Method Automated 07/27/2018 [facility] Method 3:45 PM [facility] % Neutrophils 64.4 % 07/27/2018 [facility] 3:45 PM [facility] % Lymphocytes 19.3 % 07/27/2018 [facility] 3:45 PM [facility] % Monocytes 10.5 % 07/27/2018 [facility] 3:45 PM [facility] % Eosinophils 4.9 % 07/27/2018 [facility] 3:45 PM [facility] % Basophils 0.6 % 07/27/2018 [facility] 3:45 PM [facility] % Immature 0.3 % 07/27/2018 [facility] Granulocytes 3:45 PM [facility] Nucleated RBCs 0 0 /100 07/27/2018 [facility] 3:45 PM [facility] Absolute 4.3 1.6 - 8.3 07/27/2018 [facility] Neutrophil 10e9/L 3:45 PM [facility] Absolute 1.3 0.8 - 5.3 07/27/2018 [facility] Lymphocytes 10e9/L 3:45 PM [facility] Absolute 0.7 0.0 - 1.3 07/27/2018 [facility] Monocytes 10e9/L 3:45 PM [facility] Absolute 0.3 0.0 - 0.7 07/27/2018 [facility] Eosinophils 10e9/L 3:45 PM [facility] Absolute 0.0 0.0 - 0.2 07/27/2018 [facility] Basophils 10e9/L 3:45 PM [facility] Abs Immature 0.0 0 - 0.4 07/27/2018 [facility] Granulocytes 10e9/L 3:45 PM [facility] Absolute 0.0 07/27/2018 [facility] Nucleated RBC 3:45 PM [facility] Specimen Anatomical Collection Method Collection Time Receive d Time (Source) Location / / Volume Laterality Blood specimen 07/27/2018 3:08 PM 019 3:37 (specimen) CDT PM CDT Daniela Stratton DO LAB - BLOOD ORDERABLES Performing Organization Address City/State/ZIP Code Phon e Number M [facility] [address], [place] [address] [facility] [address] [place] [address] [phone] EKG 12 lead (07/27/2018 3:07 PM CDT) [facility] gist Method Time Signature Interpretation ECG Click View RADIOLOGY Image link RESULTS to view waveform and result Specimen (Source) Anatomical Collection Method Collection Time Re ceived Time Location / / Volume Laterality 07/27/2018 3:07 PM CDT Daniela Stratton DO ECG ORDERABLES Performing Organization Address City/State/ZIP Code Phon e Number RADIOLOGY RESULTS documented in this encounter Visit Diagnoses Diagnosis Benign essential hypertension - Primary Essential hypertension, benign Symptomatic anemia Hypokalemia Hypopotassemia Urinary tract infection without hematuri a, site unspecified Calculus of kidney Calculus of distal left ureter documented in this encounter Administered Medications Inactive Administered Medications - up to 3 most recent administrations Medication Order MAR Action Action Date Dose Rate Site 0.9% sodium chloride BOLUS New Bag 07/27/2018 4:01 PM CDT 500 mLs 500 mL/hr Intravenous, 500 mL, ONCE, at 500 mL/hr, Administer over 1 Hours, On Thu07/27/18 at 1518, For 1 dose 0.9% sodium chloride BOLUS New Bag 07/27/2018 4:06 PM CDT 59 mLs Intravenous, 100 mL, ONCE, On Thu07/27/18 at 1607, For 1 dose acetaminophen (TYLENOL) tablet 650 mg Given 07/28/2018 4:18 PM CDT 650 mg 650 mg, Oral, EVERY 4 HOURS PRN, mild pain, Starting on Thu07/27/18 at 1832, Alternate ibuprofen (if ordered) with acetaminophen. Maximum acetaminophen dose from all sources = 75 mg/kg/day not to exceed 4 grams/day. aspirin (ASA) EC tablet 325 mg Given 07/29/2018 7:28 AM CDT 325 mg 325 mg, Oral, DAILY, First dose on Thu07/28/18 at 0800, DO NOT CRUSH. Given 07/28/2018 8:40 AM CDT 325 mg cefTRIAXone (ROCEPHIN) 1 g vial to attach to New Bag 9 5:47 PM CDT 1 g NS 100 mL bag for ADULTS or NS 50 mL bag for PEDS STAT, 1 g, Intravenous, ONCE, On Thu07/27/18 at 1636, For 1 dose, For 30 minutes., Indications: Urinary Tract Infection ferrous gluconate (FERGON) tablet 324 mg Given 07/29/2018 7:28 AM CDT 324 mg 324 mg, Oral, 2 TIMES DAILY, First dose on Thu07/27/18 at 2000 Given 07/28/2018 9:15 PM CDT 324 mg Given 07/28/2018 8:41 AM CDT 324 mg flumazenil (ROMAZICON) injection 0.2 mg 0.2 mg, Intravenous, EVERY 1 MIN PRN, benzodiazepine r eversal, over sedation, Administer over 1 Minutes, Starting on 07/29/18 at 1351, For 12 hours, Give over 15 seconds. If inadequate response after 45 seconds, may repeat up to a MAX total dose of 1 mg) Irritant. For ordered IV doses 0.1-1 mg, give IV Push undiluted. Administer each 0.2mg over 15 seconds., Post-procedure fluticasone (FLONASE) 50 MCG/ACT spray 1 Given 07/29/2018 7:28 A M CDT 1 spray spray 1 spray, Both Nostrils, 2 TIMES DAILY, First dose on Thu07/27/18 at 2000, Pt may use own medication Given 07/28/2018 9:15 PM CDT 1 spray Given 07/27/2018 9:11 PM CDT 1 spray iopamidol (ISOVUE-370) solution 500 mL Given 07/27/2018 4:06 PM CDT 78 mLs 500 mL, Intravenous, ONCE, On Thu07/27/18 at 1607, For 1 dose lactated ringers infusion Rate/Dose Verify 07/27/2018 7:57 PM CDT 100 mL/hr at 100 mL/hr, Intravenous, CONTINUOUS, Starting on Thu07/27/18 at 1833, Until Thu07/28/18 at 1102 New Bag 07/27/2018 6:55 PM CDT 100 mL/hr levothyroxine (SYNTHROID/LEVOTHROID) tablet Given 11/2018 7:28 AM CDT 112 mcg 112 mcg 112 mcg, Oral, DAILY, First dose on Thu07/28/18 at 0800, Separate oral administration of iron- or calcium-containing products and levothyroxine by at least 4 hours. Given 07/28/2018 8:40 AM CDT 112 mcg magnesium sulfate 4 g in 100 mL sterile water (premade) 4 g, Intravenous, Administer over 120 Minutes, EVERY 4 HOURS PRN, magnesium supplementation, Starting on Thu07/27/18 at 1950, For serum Mg++ less than 1.6 mg/dL Give 4 g and recheck magnesium level 2 hours after dos e, and next AM. May continue current IV fluids if patien t has IV fluids infusing. CONTINUOUS PRN, Starting on Francie 07/29/18 at 1351, Until Francie 07/29/18 at 1858, Post-procedure naloxone (NARCAN) injection 0.1-0.4 mg 0.1-0.4 mg, Intravenous, EVERY 2 MIN PRN , opioid reversal, Starting on Francie 07/29/18 at 1351, For 24 hours, For apnea or imminent respirato ry arrest: give 0.4 mg IV undiluted Q 2 minutes PRN until desired degree of reversal is obtained, stop opioid and notify provider. Continue monitoring until dischar ge criteria are met for a minimum of 2 hours. For severe sedation, decrease in respiratory depth, quality or respiratory rate less than 8: give 0.1 m g IV Q 2 minutes x 3 doses, stop opioid and notify provider. Try to minimize reversa l of analgesia especially in end-of-life patients For ordered IV doses 0.1-2mg gi ve IVP. Give each 0.4mg over 15 seconds in emergency situations. For non-emergent s ituations further dilute in 9mL of NS to facilitate titration of response., Post-procedure omeprazole (priLOSEC) CR capsule 20 mg Given 07/29/2018 7:28 AM CDT 20 mg 20 mg, Oral, DAILY, First dose on Thu07/28/18 at 0800 Given 07/28/2018 8:39 AM CDT 20 mg ondansetron (ZOFRAN) injection 4 mg 4 mg, Intravenous, EVERY 6 HOURS PRN, nausea, vomiting , Administer over 2-5 Minutes, Starting on Thu07/27/18 at 1832, This is Step 1 of nausea and vomiting management. If nausea not resolved in 15 minutes, go t o Step 2 prochlorperazine (COMPAZINE). Irritant. For ordered IV do ses 0.1-4 mg, give IV Push undiluted over 2-5 minutes. ondansetron (ZOFRAN-ODT) ODT tab 4 mg 4 mg, Oral, EVERY 6 HOURS PRN, nausea, v omiting, Starting on Thu07/27/18 at 1832, This is Step 1 of nausea and vomiting management. If n ausea not resolved in 15 minutes, go to Step 2 prochlorperazine (COMPAZINE). Do not push through foil backing. Peel back foil and gently remove. Place on to ngue immediately. Administration with liquid unnecessary W ith dry hands, peel back foil backing and gently remove tablet; do not push oral d isintegrating tablet through foil backing; administer immediately on tongue and oral disintegrati ng tablet dissolves in seconds; then swallow with saliva; liquid not required . pantoprazole (PROTONIX) 40 mg IV push Given 07/27/2018 4:00 PM C DT 40 mg injection 40 mg, Intravenous, ONCE, On Thu07/27/18 at 1557, For 1 dose, Irritant. For ordered IV doses 1-40 mg, give IV Push over 2 minutes when reconstituted with 10mL NS. potassium chloride (KLOR-CON) Packet 20- 40 mEq 20-40 mEq, Oral or Feeding Tube, EVERY 2 HOURS PRN, po tassium supplementation, Starting on Thu07/27/18 at 1950, Use if unable to alirio ate tablets. If Serum K+ 3.0-3.3, dose = 60 mEq po total dose (40 mEq x1 followed in 2 hours by 20 mEq x1). Recheck K+ level 4 hours after dose and the next AM. If Serum K+ 2.5-2.9, dose = 80 mEq po total dose (40 mEq Q2H x2). Reche ck K+ level 4 hours after dose and the next AM. If Serum K+ less than 2.5, See IV or brendan. Dissolve packet contents in 4-8 ounces of cold water or juice. potassium chloride 10 mEq in 100 mL inte rmittent infusion with 10 mg lidocaine 10 mEq, Intravenous, Administer over 1 Hours, EVERY 1 HOUR PRN, potassium supplementation, Starting on Thu07/27/18 at 1950, Infuse via PERIPHERAL LINE. Use potassium with lidocaine for pain with peripheral admi nistration. If Serum K+ 3.0-3.3, dose = 10 mEq/hr x4 doses (40 m Eq IV total dose). Recheck K+ level 2 hours after dose and the next AM. If Serum K+ less than 3.0, dose = 10 mEq/hr x6 doses (60 mEq IV total dose). Recheck K+ level 2 hours after dose and the next AM. potassium chloride 10 mEq in 100 mL ster ile water intermittent infusion (premix) 10 mEq, Intravenous, Administer over 60 Minutes, at 100 mL/hr, EVERY 1 HOUR PRN, potassium supplementation, Starting on 07/27/18 at 1949, Infuse via PERIPHERAL LINE or CENTRAL LINE. Use for central li ne replacement if patient weight less than 65 kg, if patient is on TPN with high po tassium content or if unit does not stock 20 mEq bags. If Serum K+ 3.0-3.3, dose = 10 mEq/hr x4 doses (40 mEq IV total dose). Recheck K+ level 2 hours after dose and the next AM. I f Serum K+ less than 3.0, dose = 10 mEq/hr x6 doses (60 mEq IV tot al dose). Recheck K+ level 2 hours after dose and the next AM. potassium chloride 20 mEq in 50 mL inter mittent infusion 20 mEq, Intravenous, EVERY 1 HOUR PRN, p otassium supplementation, Starting on Thu07/27/18 at 1949, Infuse via CENTRAL LINE Only. May need EKG if less than 65 kg or on TPN - Max rate is 0.3 mEq/kg/hr for patients not on EK G monitoring. If Serum K+ 3.0-3.3, dose = 20 mEq/hr x2 doses (40 m Eq IV total dose). Recheck K+ level 2 hours after dose and the next AM. If Serum K+ less than 3.0, dose = 20 mEq/hr x3 doses (60 mEq IV total dose). Recheck K+ level 2 hours after dose and the next AM. potassium chloride ER (K-DUR/KLOR-CON M) CR Given 09/2018 10:56 PM CDT 20 mEq tablet 20-40 mEq 20-40 mEq, Oral, EVERY 2 HOURS PRN, potassium supplementation, Starting on Thu07/27/18 at 1949, Use if able to take PO. If Serum K+ 3.0-3.3, dose = 60 mEq po total dose (40 mEq x1 followed in 2 hours by 20 mEq x1). Recheck K+ level 4 hours after dose and the next AM. If Serum K+ 2.5-2.9, dose = 80 mEq po total dose (40 mEq Q2H x2). Recheck K+ level 4 hours after dose and the next AM. If Serum K+ less than 2.5, See IV order. DO NOT CRUSH Given 07/27/2018 9:11 PM CDT 40 mEq potassium chloride ER (K-DUR/KLOR-CON M) CR Given 07/27/2018 4:23 PM CDT 40 mEq tablet 40 mEq 40 mEq, Oral, ONCE, On Thu07/27/18 at 1609, For 1 dose, DO NOT CRUSH regadenoson (LEXISCAN) 0.4 MG/5ML inject ion Given 07/28/2018 2:24 PM CDT 0.4 mg Starting on Thu07/28/18 at 1411, For 1 dose, Francie Strange : cabinet override sertraline (ZOLOFT) tablet 150 mg Given 07/29/2018 7:28 AM CDT 150 mg 150 mg, Oral, DAILY, First dose on Thu07/28/18 at 0800 Given 07/28/2018 8:39 AM CDT 150 mg simvastatin (ZOCOR) tablet 10 mg Given 07/28/2018 9:15 PM CDT 10 mg 10 mg, Oral, AT BEDTIME, First dose on Thu07/27/18 at 2200 Given 07/27/2018 9:56 PM CDT 10 mg sodium chloride (PF) 0.9% PF flush 3 mL 3 mL, Intravenous, EVERY 1 MIN PRN, line flush, after medication administration. For peripheral IV flush post IV meds, Starting on Thu07/29/18 at 1351, Post-procedure tamsulosin (FLOMAX) capsule 0.4 mg Given 07/29/2018 7:28 AM CDT 0.4 mg 0.4 mg, Oral, DAILY, First dose on Thu07/27/18 at 1833, Administer 30 minutes after the same meal each day. Capsules should be swallowed whole; do not crush chew or open. Given 07/28/2018 8:40 AM CDT 0.4 mg Given 07/27/2018 7:57 PM CDT 0.4 mg technetium Tc 99m tetrofosmin 2UD study Given 07/28/2018 2:26 PM CDT 33 mCi (MYOVIEW) radioisotope injection 3-42 mC i 3-42 mCi, Intravenous, EVERY 2 HOURS, First dose on Thu07/28/18 at 1238, For 2 doses, Radioisotope, supplied by and administered by [facility]. *HW* Given 07/28/2018 12:37 PM CDT 11 mCi traZODone (DESYREL) tablet 150 mg Given 07/28/2018 9:15 PM CDT 150 mg 150 mg, Oral, AT BEDTIME, First dose on Thu07/27/18 at 2200 Given 07/27/2018 9:56 PM CDT 150 mg triamterene-HCTZ (MAXZIDE-25) 37.5-25 MG Given 07/29/2018 7:28 A M CDT 1 tablet per tablet 1 tablet 1 tablet, Oral, DAILY, First dose on Thu07/28/18 at 0800 Given 07/28/2018 8:39 AM CDT 1 tablet documented in this encounter Active and Recently Administered Medications Times are shown in CDT. Scheduled Medication Order 07/27/2018 07/28/2018 07/29/2018 0.9% sodium chloride BOLUS (COMPLETED) 1601 (New Bag - Provider: Jethro Pena RN)1630 (Stopped - Provider: Jethro Pena RN) Intravenous, 500 mL, ONCE, at 500 mL/hr, Administer over 1 Hours, Thu07/27/18 at 1518, For 1 dose 0.9% sodium chloride BOLUS (COMPLETED) 1606 (New Bag - Provider: Lance Jacobs)1617 (Stopped - Provider: Lance Jacobs) Intravenous, 100 mL, ONCE, Thu07/27/18 at 1607, For 1 dose aspirin (ASA) EC tablet 325 mg 0840 (Given - Pro vider: Jyoti Smith RN) 0728 (Given - Provider: Jyoti Smith, DAVI) 325 mg, Oral, DAILY, First dose on Thu07/28/18 at 0800, DO NOT CR [facility]. cefTRIAXone (ROCEPHIN) 1 g vial to attac h to NS 100 mL bag for ADULTS or NS 50 mL bag for PEDS (COMPLETED) 5852 (New Bag - Provider: Ann España RN)9628 (Stopped - Provider: Jyoti Smith, DAVI - Comment: stopped in ED prior to obs admit) 1 g, Intravenous, ONCE, Thu07/27/18 at 16 36, For 1 dose, For 30 minutes., Indications: Urinary Tract Infection ferrous gluconate (FERGON) tablet 324 mg 1956 (Given - Provider: Char Burden, DAVI) 0841 (Given - Provider: Jyoti land RN)2114 (Given - Provider: Karlee Valentin, DAVI) 0728 (Given - Provider: Jyoti land, RN) 324 mg, Oral, 2 TIMES DAILY, First dose on Thu07/27/18 at 1999 fluticasone (FLONASE) 50 MCG/ACT spray 1 spray 2110 (G iven - Provider: Char Burden RN) 0847 (Not Given - Provider: Jyoti coker RN - Reason: Patient/family refused)2114 (Given - Provider: Karlee Valentin RN) 727 (Given - Provider: Jyoti Smith, DAVI) 1 spray, Both Nostrils, 2 TIMES DAILY, F irst dose on Thu07/27/18 at 1999, Pt may use own medication iopamidol (ISOVUE-370) solution 500 mL (COMPLETED) 160 6 (Given - Provider: Lance Jacobs) 500 mL, Intravenous, ONCE, Thu07/27/18 at 1607, For 1 dose latanoprost (XALATAN) 0.005 % ophthalmic solution [address] dr jenkins 2157 (Not Given - Provider: Char Burden RN - Reason: Patient/family refused) 2113 (Not Given - Provider: Karlee Valentin RN - Reason: Patient/family refused) 1 drop, Both Eyes, AT BEDTIME, First dos e on Thu07/27/18 at 2200, Pt may use own medication levothyroxine (SYNTHROID/LEVOTHROID) tablet 112 mcg 0840 (Given - Provider: Jyoti Smith, DAVI) 0728 (Given - Provider: Jyoti land RN) 112 mcg, Oral, DAILY, First dose on Thu07/28/18 at 0800, Separate oral administration of iron- or calcium-containing products and levothyroxine by at least 4 hours. omeprazole (priLOSEC) CR capsule 20 mg 0 839 (Given - Provider: Jyoti Smith RN) 0728 (Given - Provider: Jyoti land RN) 20 mg, Oral, DAILY, First dose on Thu07/28/18 at 0800 pantoprazole (PROTONIX) 40 mg IV push injection (COMPL ETED) 1600 (Given - Provider: Jethro Pena, DAVI) 40 mg, Intravenous, ONCE, Thu07/27/18 at 1557, For 1 dose, Irritant. For ordered IV doses 1-40 mg, give IV Push over 2 minutes when reconstituted with 10mL NS. potassium chloride ER (K-DUR/KLOR-CON M) CR tablet 40 mEq (COMPLETED) 1623 (Given - Provider: Jethro Pena, DAVI) 40 mEq, Oral, ONCE, Thu07/27/18 at 1609, For 1 dose, DO NOT CRUSH sertraline (ZOLOFT) tablet 150 mg 0839 ( Given - Provider: Jyoti Smith RN) 0728 (Given - Provider: Jyoti land RN) 150 mg, Oral, DAILY, First dose on Thu07/28/18 at 0800 simvastatin (ZOCOR) tablet 10 mg 2155 (Given - Provider: Franklyn Burden RN) 2114 (Given - Provider: Karlee Valentin RN) 10 mg, Oral, AT BEDTIME, First dose on Thu07/27/18 at 2200 tamsulosin (FLOMAX) capsule 0.4 mg 1956 (Given - Provider: Yimi Burden RN) 0840 (Given - Provider: Jyoti Smith, DAVI) 0728 (Given - Provider: Jyoti Smith, DAVI) 0.4 mg, Oral, DAILY, First dose on Thu at 1833, Administer 30 minutes after the same meal each day. Capsules should be swallowed whole; do not crush chew or open. technetium Tc 99m tetrofosmin 2UD study (MYOVIEW) radioisotope injection 3-42 mCi (COMPLETED) 1237 (Given - Provider: Kenroy Diaz)1426 (Given - Provider: Rigo Feldman) 3-42 mCi, Intravenous, EVERY 2 HOURS, Fi rst dose on Thu07/28/18 at 1238, For 2 doses, Radioisotope, supplied by and administered by [facility]. *HW* traZODone (DESYREL) tablet 150 mg 2155 (Given - Provider: Sarina Burden, DAVI) 2114 (Given - Provider: Karlee Valentin RN) 150 mg, Oral, AT BEDTIME, First dose on Thu07/27/18 at 2200 triamterene-HCTZ (MAXZIDE-25) 37.5-25 MG per tablet 1 tablet 0839 (Given - Provider: Jyoti Smith RN) 0728 (Given - Provider: Jyoti land RN) 1 tablet, Oral, DAILY, First dose on Thu07/28/18 at 0800 umeclidinium-vilanterol (ANORO ELLIPTA) 62.5-25 MCG/INH oral inhaler 1 puff 0847 (Not Given - Provider: Jyoti Smith RN - Reason: Patient/family refused) 0729 (Not Given - Provider: Jyoti coker RN - Reason: Patient/family refused) 1 puff, Inhalation, DAILY, First dose on Thu07/28/18 at 0800, Pt may use own medication Continuous Medication Order 07/27/2018 07/28/2018 07/29/2018 lactated ringers infusion (CANCELED) 1855 (New Bag - P rovider: Jyoti Smith, DAVI)1957 (Rate/Dose Verify - Provider: Char Burden, DAVI) 1130 (Stopped - Provider: Jyoti Smith, DAVI) at 100 mL/hr, Intravenous, CONTINUOUS, S tarting Thu07/27/18 at 1833, Until Thu07/28/18 at 1102 PRN Medication Order 07/27/2018 07/28/2018 07/29/2018 acetaminophen (TYLENOL) Suppository 650 mg 650 mg, Rectal, EVERY 4 HOURS PRN, mild pain, Starting Thu07/27/18 at 1832, Alternate ibuprofen (if ordered) with acetaminophen. Maximum acetaminophen dose from all sources = 75 mg/kg/day not to exceed 4 grams/day. acetaminophen (TYLENOL) tablet 650 mg 16 18 (Given - Provider: Edelmira Burkett, DAVI) 650 mg, Oral, EVERY 4 HOURS PRN, mild pa in, Starting Thu07/27/18 at 1832, Alternate ibuprofen (if ordered) with acetaminophen. Maximum acetaminophen dose from all sources = 75 mg/kg/day not to exceed 4 grams/day. albuterol (PROAIR HFA/PROVENTIL HFA/VENT LARA HFA) 108 (90 Base) MCG/ACT inhaler 2 puff 2 puff, Inhalation, EVERY 6 HOURS PRN, s hortness of breath / dyspnea, wheezing, Starting 07/27/18 at 1832 benzocaine 20% (HURRICAINE/TOPEX) 20 % spray (CANCELED) 1312 (Given - Provider: Doroteo Rashid MD) PRN, Starting Francie 07/29/18 at 1312, Intra-procedure fentaNYL (PF) (SUBLIMAZE) injection (CANCELED) 1311 (Given - Provider: Maci Chandler RN - Comment: ashia) Administer over 3-5 Minutes, PRN, Starting Francie 07/29/18 at 131 1, Intra-procedure flumazenil (ROMAZICON) injection 0.2 mg 0.2 mg, Intravenous, EVERY 1 MIN PRN, be nzodiazepine reversal, over sedation, Administer over 1 Minutes, Starting Francie 07/29/18 at 1351, For 12 hours, Give over 15 seconds. If inadequate response after 45 seconds, may repeat up to a MAX total do se of 1 mg) Irritant. For ordered IV doses 0.1-1 mg, give IV Push undiluted. Administer each 0.2mg over 15 seconds., Post-procedure HYDROcodone-acetaminophen (NORCO) 5-325 MG per tablet 1-2 tablet 1-2 tablet, Oral, EVERY 4 HOURS PRN, oth er, pain control or improvement in physical function., Starting e 07/27/18 at 1832, Start with the lowest dose. May adjust dose by 1 tablet every 4 hours as neede d for pain control or improvement in phy sical function. Hold dose for analgesic side effects. Notify provider to assess for uncontrolled pain or analgesic side effects. Maximum acetaminophen dose from all sources= 75 mg/kg/day not to exceed 4 grams hydrOXYzine (ATARAX) tablet 25 mg 25 mg, Oral, AT BEDTIME PRN, itching, Starting 07/27/18 at 183 2 magnesium sulfate 4 g in 100 mL sterile water (premade) 4 g, Intravenous, Administer over 120 Mi nutes, EVERY 4 HOURS PRN, Starting e 07/27/18 at 1950, magnesium supplementation, For serum Mg++ less than 1.6 mg/dL Give 4 g and recheck magnesium level 2 hours after dose, and next AM. May continue current IV fluids if patient has IV fluids infusing . CONTINUOUS PRN, Starting Francie 07/29/18 at 1 351, Until Francie 07/29/18 at 1858, Post-procedure melatonin tablet 1 mg 1 mg, Oral, AT BEDTIME PRN, sleep, Start ing [facility] 07/27/18 at 1832, Do not give unless at least 6 hours of uninterrupted sleep is expected. midazolam (VERSED) injection (CANCELED) 1311 (Given - Provider: Maci Chandler RN) Administer over 2 Minutes, PRN, Starting Francie 07/29/18 at 1311, Int ra-procedure naloxone (NARCAN) injection 0.1-0.4 mg 0.1-0.4 mg, Intravenous, EVERY 2 MIN PRN , opioid reversal, Starting [facility] 07/27/18 at 1832, For respiratory rate LESS than or EQUAL to 8. Partial reversal dose: 0.1 mg titrated q 2 minutes for Analgesia Tino e Effects Monitoring Sedation Level of 3 (frequently drowsy, arousable, drifts to sleep during conversation).Full reversal dose: 0.4 mg bolus for Analgesia Side Effects Monitoring Sedation Level of 4 (s omnolent, minimal or no response to stim ulation). For ordered IV doses 0.1-2mg give IVP. Give each 0.4mg over 15 seconds in emergency situations. For non- emergent situations further dilute in 9mL of NS to facilitate titration of response. naloxone (NARCAN) injection 0.1-0.4 mg 0.1-0.4 mg, Intravenous, EVERY 2 MIN PRN , opioid reversal, Starting Francie 07/29/18 at 1351, For 24 hours, For apnea or imminent respiratory arrest: give 0.4 mg IV undiluted Q 2 minutes PRN until desired deg ree of reversal is obtained, stop opioid and notify provider. Continue monitoring until discharge criteria are met for a minimum of 2 hours. For severe sedation, decrease in respiratory depth, quality o r respiratory rate less than 8: give 0.1 mg IV Q 2 minutes x 3 doses, stop opioid and notify provider. Try to minimize reversal of analgesia especially in end-of-life patients For ordered IV doses 0.1-2 mg give IVP. Give each 0.4mg over 15 sec onds in emergency situations. For non- emergent situations further dilute in 9mL of NS to facilitate titration of response., Post-procedure ondansetron (ZOFRAN) injection 4 mg(Linked Group 1) 4 mg, Intravenous, EVERY 6 HOURS PRN, na usea, vomiting, Administer over 2-5 Minutes, Starting Thu07/27/18 at 1832, This is Step 1 of nausea and vomiting management. If nausea not resolved in 15 minutes, go to Step 2 prochlorperazine (COMPAZINE ). Irritant. For ordered IV doses 0.1-4 mg, give IV Push undiluted over 2-5 minutes. ondansetron (ZOFRAN-ODT) ODT tab 4 mg(Linked Group 1) 4 mg, Oral, EVERY 6 HOURS PRN, nausea, v omiting, Starting Thu07/27/18 at 1832, This is Step 1 of nausea and vomiting management. If nausea not resolved in 15 minutes, go to Step 2 prochlorperazine (COURTNEY ZINE). Do not push through foil backing. Peel back foil and gently remove. Place on tongue immediately. Administration with liquid unnecessary With dry hands, peel back foil backing and gently remove ta blet; do not push oral disintegrating ta blet through foil backing; administer immediately on tongue and oral disintegrating tablet dissolves in seconds; then swallow with saliva; liquid not required. potassium chloride (KLOR-CON) Packet 20-40 mEq 20-40 mEq, Oral or Feeding Tube, EVERY 2 HOURS PRN, Starting Thu07/27/18 at 1950, potassium supplementation, Use if unable to tolerate tablets. If Serum K+ 3.0- 3.3, dose = 60 mEq po total dose (40 mEq x1 followed in 2 hours by 20 mEq x1). Rech jair K+ level 4 hours after dose and the next AM. If Serum K+ 2.5-2.9, dose = 80 mEq po total dose (40 mEq Q2H x2). Recheck K+ level 4 hours after dose and the nex t AM. If Serum K+ less than 2.5, See IV order. Dissolve packet contents in 4-8 ounces of cold water or juice. potassium chloride 10 mEq in 100 mL intermittent infusion wi th 10 mg lidocaine 10 mEq, Intravenous, Administer over 1 H ours, EVERY 1 HOUR PRN, Starting Thu07/27/18 at 1949, potassium supplementation, Infuse via PERIPHERAL LINE. Use potassium with lidocaine for pain with peripheral administration. If Serum K+ 3.0-3.3, dos e = 10 mEq/hr x4 doses (40 mEq IV total dose). Recheck K+ level 2 hours after dose and the next AM. If Serum K+ less than 3.0, dose = 10 mEq/hr x6 doses (60 mEq I V total dose). Recheck K+ level 2 hours after dose and the next AM. potassium chloride 10 mEq in 100 mL ster ile water intermittent infusion (premix) 10 mEq, Intravenous, Administer over 60 Minutes, EVERY 1 HOUR PRN, Starting Thu07/27/18 at 1949, potassium supplementation, Infuse via PERIPHERAL LINE or CENTRAL LINE. Use for central line replacement if patient weight less than 65 kg, if lazaro ent is on TPN with high potassium content or if unit does not stock 20 mEq bags. If Serum K+ 3.0-3.3, dose = 10 mEq/hr x4 doses (40 mEq IV total dose). Recheck K+ level 2 hours after dose and the next A M. If Serum K+ less than 3.0, dose = 10 mEq/hr x6 doses (60 mEq IV total dose). Recheck K+ level 2 hours after dose and the next AM. potassium chloride 20 mEq in 50 mL intermittent infusion 20 mEq, Intravenous, EVERY 1 HOUR PRN, S tarting Thu07/27/18 at 1950, potassium supplementation, Infuse via CENTRAL LINE Only. May need EKG if less than 65 kg or on TPN - Max rate is 0.3 mEq/kg/hr for pat ients not on EKG monitoring. If Serum K+ 3.0-3.3, dose = 20 mEq/hr x2 doses (40 mEq IV total dose). Recheck K+ level 2 hours after dose and the next AM. If Serum K+ less than 3.0, dose = 20 mEq/hr x3 do ses (60 mEq IV total dose). Recheck K+ l evel 2 hours after dose and the next AM. potassium chloride ER (K-DUR/KLOR-CON M) CR tablet 20- 40 mEq 2110 (Given - Provider: Char Burden, DAVI)2255 (Given - Provider: Char Burden, DAVI - Comment: give 20 mEq) 20-40 mEq, Oral, EVERY 2 HOURS PRN, Star ting 07/27/18 at 1950, potassium supplementation, Use if able to take PO. If Serum K+ 3.0-3.3, dose = 60 mEq po total dose (40 mEq x1 followed in 2 hours by 20 mEq x1). Recheck K+ level 4 hours after dose and the next AM. If Serum K+ 2.5- 2.9, dose = 80 mEq po total dose (40 mEq Q2H x2). Recheck K+ level 4 hours after dose and the next AM. If Serum K+ less than 2.5, See IV order. DO NOT CRUSH sodium chloride (PF) 0.9% PF flush 3 mL 3 mL, Intravenous, EVERY 1 MIN PRN, line flush, after medication administration. For peripheral IV flush post IV meds, Starting Francie 07/29/18 at 1351, Post-procedure sodium chloride (PF) 0.9% PF flush (CANCELED) 1311 (Given - Provider: Maci Chandler RN) PRN, Starting Francie 07/29/18 at 1311, Intra-procedure No Frequency Medication Order 07/27/2018 07/28/2018 07/29/2018 regadenoson (LEXISCAN) 0.4 MG/5ML injection (COMPLETED) 1424 (Given - Provider: Francie Strange RN - Comment: [id number]) Starting 07/28/18 at 1411, For 1 dose, Francie Strange : regulo [place] Linked Groups Order Group 1: ondansetron (ZOFRAN-ODT) ODT tab 4 mgJump to med 4 mg, Oral, EVERY 6 HOURS PRN, nausea, v omiting, Starting 07/27/18 at 1832
This is Step 1 of nausea and vomiting management. If nausea not resolved in 15 minutes, go to Jhony p 2 prochlorperazine (COMPAZINE). Do not push through foil backing. Peel back foil and gently remove. Place on tongue immediately. Administration with liquid unnecessary With dry hands, peel ba ck foil backing and gently remove tablet ; do not push oral disintegrating tablet through foil backing; administer immediately on tongue and oral disintegrating tablet dissolves in seconds; then swallow with saliva; liquid not required.
Or ondansetron (ZOFRAN) injection 4 mgJump to med 4 mg, Intravenous, EVERY 6 HOURS PRN, na usea, vomiting, Administer over 2-5 Minutes, Starting Thu07/27/18 at 1832
This is Step 1 of nausea and vomiting management. If nausea n ot resolved in 15 minutes, go to Step 2 prochlorperazine (COMPAZINE). Irritant. For ordered IV doses 0.1-4 mg, give IV Push undiluted over 2-5 minutes.
documented in this encounter Care Teams Career Development Engineer Relationship Specialty Start Date End Date Clinic, [facility] PCP - General 07/27/18 [address] [place] [address] documented as of this encounter
--- OUTSIDE RECORDS SUMMARY | 2022-02-07 11:19 | XMS_ITS | Encounter Summary ---
:1940 Author Organization [facility] Address [address] [place] [address] Care Team Providers Name Role Phone Clinic, [facility] Primary Care Provider Encounter Details Date Type Department Care Team Description 07/29/2018 Surgery [facility] Doroteo Rashid M D ESOPHAGOGASTRODUODENOSCOPY [facility] GASTROENTEROLOGY (EGD) Endoscopy [facility] [address] Jocelyne Posada [address] [place] [address] [place], [place] [phone] (Wo rk) [address] [phone] Surgery Details Date/Time Status Location OR Service Patient Case Case Traum a Class Class Type Case? 07/29/18 1:00 Posted GI GI A Gastroenterology Inpatient PM Panel 1 Procedure LRB Anes Op Region Wound Class Commen ts ESOPHAGOGASTRODUODENOSCOPY N/A Conscious Mouth II-Clean (EGD) Sedation Contaminated Surgeon Surgeon Role Service Panel Doroteo Rashid MD Primary Gastroenterology 1 documented in this encounter Social History Tobacco Use Types Packs/Day Years Used Date Smoking Tobacco: Never Assessed Sex Assigned at Date Recorded Not on file documented as of this encounter Last Filed Vital Signs Vital Sign Reading Time Taken Comments Blood Pressure 126/64 07/29/2018 1:30 PM CDT Pulse 73 07/29/2018 1:15 PM CDT Temperature 36.2 ??C (97.2 ??F) 07/29/2018 12:10 PM CDT Respiratory Rate 16 07/29/2018 1:30 PM CDT Oxygen Saturation 95% 07/29/2018 1:30 PM CDT Inhaled Oxygen Concentration - - [...] by outpatient colonoscopy with Dr. Rashid of [facility] on 08/17. I nitial troponin negative. EKG [...] own. ?? #COPD: no acute exacerbation, continue [employer] Anoro-Ellipta if patient has home inhaler with [...] daily fluticasone (FLONASE) 50 MCG/ACT nasal spray [place] 1 spray into both nostrils 2 times [...] hemicolectomy. ELSIE MCCLURE MD NM MPI w Rosalba Narrative GATED MYOCARDIAL PERFUSION SCINTIGRAPHY WITH INTRAVENOUS [...] HUMPHREY MD Most Recent Lab Results In [facility] (For Non-[facility] Providers): Most Recent 3 CBC's: Recent Labs Lab Test 07/29/18 1055 07/29/18 0628 07/28/18 1017 07/27/18 1508 WBC -- 7.5 7.6 [...] mouth 2 times daily fluticasone (FLONASE) 50 [place] 1 spray into 0 MCG/ACT nasal spray [...] eat her breakfast. Will notify PA. Edelmira Brukett RN - 07/28/2018 4:11 PM CDT Patient ambulated in halls. Noted SOB-had to stop and lean forward to catch breath-relieved quickly with rest-pt states the SOB with exertion is the same as it was prior to coming in has not improved or become worse. INEET Edelmira Burkett RN - 07/28/2018 3:00 PM CDT Patient still down at lexiscan Francie Strange RN - 07/28/2018 2:28 PM CDT [...] Corral PA-C - 07/28/2018 11:28 AM CDT [facility] Hospitalist Progress Note Name: Ayah [...] by outpatient colonoscopy with Dr. Rashid of [facility] on 08/17. Initial troponin negative. EKG shows [...] on 08/[address] Rashid - Continue [employer] iron supplementation #Left ureteral stone with mild [...] as needed #COPD: no acute exacerbation, continue [employer] Anoro-Ellipta if patient has home inhaler with [...] NEG^Negative Ketones Urine Negative NEG^Negative mg/dL Specific [place] Urine 1.025 1.003 - 1.035 Blood Urine [...] Antibody Screen Neg Test Valid Only At [facility] Specimen Expires 07/30/2018 Urine Culture Aerobic Bacterial Result Value Ref Range Specimen Description Midstream Urine Special Requests Specimen received in preservative Culture Micro Culture in progress Vandana Corral PA-C Jyoti Smith RN - 07/27/2018 6:32 PM CDT ROOM # 229 Living Situation (if not independent, order SW consult): at home with significant other in [place] personnel recruiter: Gen Mcmullen, significant other, Activity level at [...] Plaza MD - 07/27/2018 4:57 PM CDT [facility] History and Physical Hospitalist Date [...] Antibody Screen Neg Test Valid Only At [facility] Specimen Expires 07/30/2018 UA with Microscopic Result Value Ref Range Color Urine Yellow Appearance Urine Slightly Cloudy Glucose Urine Negative NEG^Negative mg/dL Bilirubin Urine Negative NEG^Negative Ketones Urine Negative NEG^Negative mg/dL Specific [place] Urine 1.025 1.003 - 1.035 Blood Urine [...] JIMÉNEZ MD MT: JULIANA Name: AYAH DELANEY MRN: [id number] Account: [id number] : 1940 Consult Date: 07/28/2018 Document: [id number] cc: [facility] documented in this encounter ED Notes Jyoti Smith RN - 07/27/2018 4:31 PM CDT [facility] ED Nurse Handoff Report Ayah [...] Assist. Lift room needed: No. Bariatric: No Industrial Equipment Wirer Needed: No Isolation: Yes. Infection: Not Applicable. [...] July 27, 2018 at 5:57 PM Cyrus Bell RN - 07/27/2018 2:47 PM CDT ABC's [...] tenderness. KYLEE without gross blood or melena. Senior Commercial Loan Officer Nurse Katrina MEDINA: No calf tenderness or swelling. Neuro: Alert. Follows simple commands. Skin: Skin is warm and dry. No rash noted. Generalized pallor. Psychiatric: Normal affect. Emergency Department Course ECG: ECG taken at 1507, ECG read at 1507 Normal sinus rhythm Normal ECG Rate 67 bpm. MS interval 166 ms. QRS duration 82 ms. [...] 0.99) Nt probnp inpatient: 197 Troponin (Collected 1521): <0.015 Magnesium: 2.1 ABO/Rh type and screen: [...] Dr. Plaza of the hospitalist service from [facility] regarding patient's presentation, findings, and plan of [...] observations and the provider's statements to me. [facility] Daniela Stratton DO 07/27/182019 documented in this encounter Miscellaneous Notes Plan of Care - Natividad Gray RN - 07/29/2018 4:56 PM CDT [...] Return to near baseline physical activity: Yes Migrant Leader Nurse Safe discharge environment identified: Yes Barriers [...] Return to near baseline physical activity: Yes Migrant Leader Nurse Safe discharge environment identified: Yes Barriers [...] Return to near baseline physical activity: Yes Migrant Leader Nurse Safe discharge environment identified: Yes Barriers [...] Return to near baseline physical activity: Yes Migrant Leader Nurse Safe discharge environment identified: Yes Barriers [...] Return to near baseline physical activity: Yes Migrant Leader Nurse Safe discharge environment identified: Yes Barriers to discharge: No Entered by: Karlee Valentin 07/28/2018 9:38 PM Please review provider order for any additional goals. Nurse to notify provider when observation goals have been met and patient is ready for discharge. Blood given. VSS. No stone found while straining urine. Denies pain. Plan of Antoine - Jyoti Smith RN - 07/28/2018 11:45 AM CDT PRIMARY DIAGNOSIS: Kidney stone, symptomatic anemia, hypokalemia OUTPATIENT/OBSERVATION GOALS TO BE MET BEFORE DISCHARGE: 1. ADLs back to baseline: Yes 2. Activity and level of assistance: Ambulating independently. 3. Pain status: denies 4. Return to near baseline physical activity: Yes Migrant Leader Nurse Safe discharge environment identified: Yes Barriers [...] Return to near baseline physical activity: Yes Migrant Leader Nurse Safe discharge environment identified: Yes Barriers [...] strain urine, IVF, monitor pain Plan of Karlee Long RN - 07/28/2018 6:40 AM CDT PRIMARY DIAGNOSIS: Anemia OUTPATIENT/OBSERVATION GOALS TO BE MET BEFORE DISCHARGE: ADLs back to baseline: Yes Activity and level of assistance: Up with standby assistance. Pain status: Pain free. Return to near baseline physical activity: Yes Migrant Leader Nurse Safe discharge environment identified: Yes Barriers [...] Return to near baseline physical activity: No Migrant Leader Nurse Safe discharge environment identified: Yes Barriers [...] Return to near baseline physical activity: Yes Migrant Leader Nurse Safe discharge environment identified: Yes Barriers [...] discharge. Pharmacy-Admission Medication History - Emelina Riley [facility] - 07/27/2018 5:44 PM CDT Admission medication history interview status for this patient is complete. See [facility] admission navigator for allergy information, prior to admission medications and immunization status. Medication history interview source(s):Patient Medication history resources (including written lists, pill bottles, clinic record):Care everywhere Primary pharmacy:[facility] Changes made to [employer] medication list: Added: all Deleted: none Changed: [...] History fluticasone (FLONASE) 50 MCG/ACT nasal spray [place] 1 spray into both nostrils 2 times [...] Value Ref Test Analysis Performed At [facility] Range Method Time Signature Specimen Feces [...] Code Phon e Number INFECTIOUS DISEASES [address] [place] [address] DIAGNOSTIC LABORATORY, [facility] INFECTIOUS DISEASES [address] [place] [address], A DIAGNOSTIC LABORATORY UPPER GI ENDOSCOPY (07/29/2018 12:45 PM CDT) Component Value Ref Test Analysis Performed At [facility] Range Method Time Signature Upper GI [facility] RADIO LOGY Endoscopy RESULTS Patient Name: Ayah Delaney ? Procedure Date: 07/29/2018 12:45 PM ? Accou nt Number: [id number] Date of : 1940 ?Admit Type: Inp [...] # [id number], Endora # ?[id number], SN # [id number] was introduced through the mouth, ?and advanced [...] Note Initiated On: 07/29/2018 12:45 PM MRN: ?[id number] Procedure Date: ? 07/29/2018 12:45:51 PM Total [...] Hemoglobin 9.8 (L) 11.7 - 15.7 07/29/2018 [place] g/dL 11:06 AM CDT [facility] Specimen Anatomical Collection Method Collection Time Receive d Time (Source) Location / / Volume Laterality Blood specimen 07/29/2018 10:55 9 (specimen) AM CDT 10:56 AM CDT Rocio Kilpatrick PA-C LAB - BLOOD ORDERABLES Performing Organization Address City/State/ZIP Code Phon e Number [place] [address] [place] [address] [place] [address] [phone] Surgical pathology exam (07/29/2018 7:49 AM CDT) Component Value Ref Test Analysis Performed At [facility] gist Range Method Time Signature Copath Report Patient Name: AYAH DELANEY MR#: [id number] Specimen #: [id number] Collected: 07/29/2018 Received: 07/29/2018 Reported: 07/29/2018 10:43 [...] made. ??(Dictated by: REYNA Braxton 07/29/2018 10:30 AM)/MGP. The technical component of this testing was completed at the [facility], with the professional compo nent performed at the [facility], [address] [place], [place] [address], [place] ??[address] 337-5785 ([phone]) CPT Codes: A: 30183-JI COLLECTION SITE: Client: [facility] Location: RHOBS (R) Specimen Anatomical Collection Method Collection Time Receive d Time (Source) Location / / Volume Laterality 07/29/2018 7:49 AM 9 8:29 CDT AM CDT Adrien MADRIGAL - SASHA ALLEN Performing Organization Address City/State/ZIP Code Phon e Number [place] Stone analysis (07/29/2018 7:45 AM CDT) [facility] gist Method Time Signature Stone SEE NOTE 07/31/2018 [place] Composition 8:37 AM T [facility] Comment: (Note) Sample composed primarily of organic [...] omposition determined by FTIR analysis. Performed by [facility], [address] [place] [id number] [email or web address], Florentino Montes MD, Lab. Director Calculi Number Not Applicable 07/31/2018 8:37 AM C DT [facility] Calculi Size Not Applicable mm 07/31/2018 8:37 AM CDT [facility] Calculi Description Not Applicable 07/31/2018 8:37 AM CDT [facility] Stone Mass SEE NOTE mg 07/31/2018 8:37 AM CDT [facility] Comment: (Note) Sample mass < 2 [...] Address City/State/ZIP Code Phon e Number [place] [address] [address] [place], [place] [address] [facility] [address] [phone] (ABNORMAL) CBC with platelets differential (07/29/2018 6:28 AM CDT) [facility] Method Time Signature WBC 7.5 4.0 - 07/29/2018 [facility] 11.0 6:45 AM [facility] 10e9/L [facility] RBC Count 3.98 3.8 - 5.2 07/29/2018 [facility] 10e12/L 6:45 AM [facility] Hemoglobin 9.8 (L) 11.7 - 07/29/2018 [facility] 15.7 g/dL 6:45 AM [facility] Hematocrit 33.1 (L) 35.0 - 07/29/2018 [facility] 47.0 % 6:45 AM [facility] MCV 83 78 - 100 07/29/2018 [facility] fl 6:45 AM [facility] MCH 24.6 (L) 26.5 - 07/29/2018 [facility] 33.0 pg 6:45 AM [facility] MCHC 29.6 (L) 31.5 - 07/29/2018 [facility] 36.5 g/dL 6:45 AM [facility] RDW 19.6 (H) 10.0 - 07/29/2018 [facility] 15.0 % 6:45 AM [facility] Platelet Count 333 150 - 450 07/29/2018 [facility] 10e9/L 6:45 AM [facility] Diff Method Automated 07/29/2018 [facility] Method 6:45 AM [facility] % Neutrophils 73.7 % 07/29/2018 [facility] 6:45 AM [facility] % Lymphocytes 11.2 % 07/29/2018 [facility] 6:45 AM [facility] % Monocytes 8.2 % 07/29/2018 [facility] 6:45 AM [facility] % Eosinophils 5.9 % 07/29/2018 [place] 6:45 AM [facility] % Basophils 0.7 % 07/29/2018 [place] 6:45 AM [facility] % Immature 0.3 % 07/29/2018 [place] Granulocytes 6:45 AM [facility] Nucleated RBCs 0 0 /100 07/29/2018 [place] 6:45 AM [facility] Absolute 5.6 1.6 - 8.3 07/29/2018 [place] Neutrophil 10e9/L 6:45 AM [facility] Absolute 0.8 0.8 - 5.3 07/29/2018 [place] Lymphocytes 10e9/L 6:45 AM [facility] Absolute 0.6 0.0 - 1.3 07/29/2018 [place] Monocytes 10e9/L 6:45 AM [facility] Absolute 0.4 0.0 - 0.7 07/29/2018 [place] Eosinophils 10e9/L 6:45 AM [facility] Absolute 0.1 0.0 - 0.2 07/29/2018 [place] Basophils 10e9/L 6:45 AM [facility] Abs Immature 0.0 0 - 0.4 07/29/2018 [place] Granulocytes 10e9/L 6:45 AM [facility] Absolute 0.0 07/29/2018 [place] Nucleated RBC 6:45 AM [facility] Specimen Anatomical Collection Method Collection Time Receive d Time (Source) Location / / Volume Laterality Blood specimen 07/29/2018 6:28 AM 019 6:29 (specimen) CDT AM CDT Mee Corral PA-C LAB - BLOOD ORDERABLES Performing Organization Address City/State/ZIP Code Phon e Number M [facility] [address] [place], [place] [address] [facility] [address] [phone] (ABNORMAL) Basic metabolic panel (07/29/2018 6:28 AM CDT) P athologist Signature Sodium 141 133 - 144 07/29/2018 [place] mmol/L 6:54 AM [facility] Potassium 3.7 3.4 - 5.3 07/29/2018 [place] mmol/L 6:54 AM [facility] Chloride 109 94 - 109 07/29/2018 [place] mmol/L 6:54 AM [facility] Carbon Dioxide 30 20 - 32 07/29/2018 [place] mmol/L 6:59 AM [facility] Anion Gap 2 (L) 3 - 14 07/29/2018 [place] mmol/L 6:59 AM [facility] Glucose 99 70 - 99 07/29/2018 [place] mg/dL 6:59 AM [facility] Urea Nitrogen 10 7 - 30 07/29/2018 [place] mg/dL 6:59 AM [facility] Creatinine 0.91 0.52 - 07/29/2018 [place] 1.04 mg/dL 6:59 AM [facility] GFR Estimate 61 >60 07/29/2018 [place] mL/min/{1. 6:59 AM [facility] 73_m2} [facility] Comment: Non GFR Calc Starting 03/09/2018, serum creatinine ba sed estimated GFR (eGFR) will be calculated using the Chronic Kidney Dise [facility] Epidemiology Collaboration (CKD-EPI) equation. GFR Estimate If 71 >60 mL/min/{1.73_m2} 07/29/2018 6: 59 AM [facility] Comment: GFR Calc Starting 03/09/2018, serum creatinine ba sed estimated GFR (eGFR) will be calculated using the Chronic Kidney Dise [facility] Epidemiology Collaboration (CKD-EPI) equation. Calcium 8.9 8.5 - 10.1 mg/dL 07/29/2018 6:59 AM [facility] Specimen Anatomical Collection Method Collection Time Receive d Time (Source) Location / / Volume Laterality Blood specimen 07/29/2018 6:28 AM 019 6:29 (specimen) CDT AM CDT Mee Corral PA-C LAB - BLOOD ORDERABLES Performing Organization Address City/State/ZIP Code Phon e Number [place] [address] [address] [place], [place] [address] [phone] [place] [address] [address] [place] [id number] [facility] [phone] Transfuse red blood cell unit (07/28/2018 10:17 PM CDT) Mee Diane Corral PA-C IP NURSING BLOOD ADMINISTRAT ON Transfuse red blood cell unit (07/28/2018 10:17 PM CDT) Mee Diane Corral PA-C IP NURSING BLOOD ADMINISTRAT ON NM MPI w Lexiscan (07/28/2018 3:50 PM CDT) Anatomical Region Laterality Modality Chest Nuclear Medicine Specimen (Source) Anatomical Location Collection Method / Collectio n Time Received Time / Laterality Volume Narrative 07/28/2018 4:30 PM CDT GATED MYOCARDIAL PERFUSION SCINTIGRAPHY WITH INTRAVENOUS PHARMACOLOGIC VASODILATATION LEXISCAN -ONE DAY STUDY 07/28/2018 3:50 PM ??AYAH S DELANEY ??77 years ??Female ??1940. Indication/Clinical History: [...] - 11.0 07/28/2018 [facility] 10e9/L 10:37 AM [facility] RBC Count 3.32 (L) 3.8 - 5.2 07/28/2018 [facility] 10e12/L 10:37 AM [facility] Hemoglobin 8.0 (L) 11.7 - 07/28/2018 [facility] 15.7 g/dL 10:37 AM [facility] Hematocrit 27.1 (L) 35.0 - 07/28/2018 [facility] 47.0 % 10:37 AM [facility] MCV 82 78 - 100 07/28/2018 [facility] fl 10:37 AM [facility] MCH 24.1 (L) 26.5 - 07/28/2018 [facility] 33.0 pg 10:37 AM [facility] MCHC 29.5 (L) 31.5 - 07/28/2018 [facility] 36.5 g/dL 10:37 AM [facility] RDW 19.9 (H) 10.0 - 07/28/2018 [facility] 15.0 % 10:37 AM [facility] Platelet Count 335 150 - 450 07/28/2018 [facility] 10e9/L 10:37 AM [facility] Specimen Anatomical Collection Method Collection Time Receive d Time (Source) Location / / Volume Laterality Blood specimen 07/28/2018 10:17 9 (specimen) AM CDT 10:18 AM CDT Mee Corral PA-C LAB - BLOOD ORDERABLES Performing Organization Address City/State/ZIP Code Phon e Number M [facility] [address] [address] [facility] [address] [place] [address] [facility] [phone] (ABNORMAL) Basic metabolic panel (07/28/2018 10:17 AM CDT) P athologist Signature Sodium 142 133 - 144 07/28/2018 [facility] mmol/L 10:43 AM [facility] Potassium 4.2 3.4 - 5.3 07/28/2018 [place] mmol/L 10:43 AM [facility] Chloride 112 (H) 94 - 109 07/28/2018 [place] mmol/L 10:43 AM [facility] Carbon Dioxide 27 20 - 32 07/28/2018 [place] mmol/L 10:50 AM [facility] Anion Gap 3 3 - 14 07/28/2018 [place] mmol/L 10:50 AM [facility] Glucose 95 70 - 99 07/28/2018 [place] mg/dL 10:50 AM [facility] Urea Nitrogen 11 7 - 30 07/28/2018 [place] mg/dL 10:50 AM [facility] Creatinine 0.95 0.52 - 07/28/2018 [place] 1.04 mg/dL 10:50 AM [facility] GFR Estimate 58 (L) >60 07/28/2018 [place] mL/min/{1. 10:50 AM [facility] 73_m2} [facility]OS[facility] Comment: Non GFR Calc Starting 03/09/2018, serum creatinine ba sed estimated GFR (eGFR) will be calculated using the Chronic Kidney Dise [facility] Epidemiology Collaboration (CKD-EPI) equation. GFR Estimate If 67 >60 mL/min/{1.73_m2} 07/28/2018 10 :50 AM [facility] Comment: GFR Calc Starting 03/09/2018, serum creatinine ba sed estimated GFR (eGFR) will be calculated using the Chronic Kidney Dise [facility] Epidemiology Collaboration (CKD-EPI) equation. Calcium 8.4 (L) 8.5 - 10.1 mg/dL 07/28/2018 10:50 AM [facility] Specimen Anatomical Collection Method Collection Time Receive d Time (Source) Location / / Volume Laterality Blood specimen 07/28/2018 10:17 9 (specimen) AM CDT 10:18 AM CDT Mee Corral PA-C LAB - BLOOD ORDERABLES Performing Organization Address City/State/ZIP Code Phon e Number [place] [address] [address] [place], [place] [address] [facility] [address] [place], [place] [address] [facility] [phone] Potassium (07/28/2018 3:22 AM CDT) athologist Signature Potassium 4.0 3.4 - 5.3 07/28/2018 [facility] mmol/L 3:42 AM CDT [facility] Specimen Anatomical Collection Method Collection Time Receive d Time (Source) Location / / Volume Laterality Blood specimen 07/28/2018 3:22 AM 019 3:23 (specimen) CDT AM CDT Adrien Plaza MD LAB - BLOOD ORDERABLES Performing Organization Address City/[facility]/ZIP [facility] Phon e Number [facility] [address] [place] [address] [place] [address] [address] [place], [place] [address], [facility] [phone] (ABNORMAL) Potassium (07/27/2018 8:14 PM CDT) athologist Signature Potassium 3.3 (L) 3.4 - 5.3 07/27/2018 [place] mmol/L 8:37 PM CDT [facility] Specimen Anatomical Collection Method Collection Time Receive d Time (Source) Location / / Volume Laterality Blood specimen 07/27/2018 8:14 PM 019 8:15 (specimen) CDT PM CDT Adrien Plaza MD LAB - BLOOD ORDERABLES Performing Organization Address City/[facility]/ZIP Code Phon e Number [facility] [address] [place], [place] [address] [facility] [address] [place], [place] [address], [facility] [phone] Abd/pelvis CT, IV contrast only TRAUMA / [...] PM 9 3:31 CDT PM CDT Daniela Stratton DO LAB - BEAKER POCT Performing Organization Address City/State/ZIP Code Phon e Number [facility] POINT OF CARE TEST, HANDHELD METER POINT OF CARE TEST, HANDHELD METER Urine Culture Aerobic Bacterial (07/27/2018 3:21 PM CDT) Component Value Ref Test Analysis Performed At [facility] gist Range Method Time Signature Specimen Midstream Urine [...] MICRO GENERAL ORDERABL ES Performing Organization Address City/[facility] Phon e Number INFECTIOUS DISEASES [address] [place] [address] DIAGNOSTIC LABORATORY, [facility] INFECTIOUS DISEASES [address] [place] [address], [place] DIAGNOSTIC LABORATORY Magnesium (07/27/2018 3:21 PM CDT) athologist [facility] Magnesium 2.1 1.6 - 2.3 07/27/2018 [facility] mg/dL 4:07 PM T HOSPITAL Specimen Anatomical Collection Method Collection Time Receive d Time (Source) Location / / Volume Laterality 07/27/2018 3:21 PM 9 3:41 CDT PM CDT Daniela Stratton DO LAB - BLOOD ORDERABLES Performing Organization Address City/[facility] Phon e Number M [facility] [address] [place] [address] [facility] [address] [phone] Troponin I (07/27/2018 3:21 PM CDT) athologist Signature Troponin I ES <0.015 0.000 - 07/27/2018 [place] 0.045 ug/L 4:05 PM T [facility] Comment: The 99th percentile for upper reference [...] LAB - BLOOD ORDERABLES Performing Organization Address [facility]/ZIP Code Phon e Sumeet [facility] [address] [place], [place] [address] [place] [address] [address] [place], [place] [address], [facility] [phone] Nt probnp inpatient (07/27/2018 3:21 PM CDT) athologist Signature N-Terminal Pro 197 0 - 1,800 07/27/2018 [place] BNP Inpatient pg/mL 4:05 PM [facility] Comment: Reference range shown and results [...] LAB - BLOOD ORDERABLES Performing Organization Address City/[facility]/ZIP [facility] e Sumeet [facility] [address] [place], [place] [address] [facility] [address] [place], [place] [address], [facility] [phone] (ABNORMAL) Comprehensive metabolic panel (07/27/2018 3:21 PM CDT) athologist Signature Sodium 141 133 - 144 07/27/2018 [place] mmol/L 3:55 PM [facility] Potassium 2.9 (L) 3.4 - 5.3 07/27/2018 [facility] mmol/L 3:55 PM [facility] Chloride 105 94 - 109 07/27/2018 [facility] mmol/L 3:55 PM [facility] Carbon Dioxide 30 20 - 32 07/27/2018 [facility] mmol/L 4:00 PM [facility] Anion Gap 6 3 - 14 07/27/2018 [place] mmol/L 4:00 PM [facility] Glucose 86 70 - 99 07/27/2018 [place] mg/dL 4:00 PM [facility] Urea Nitrogen 15 7 - 30 07/27/2018 [place] mg/dL 4:00 PM [facility] Creatinine 0.99 0.52 - 07/27/2018 [facility] 1.04 mg/dL 4:00 PM [facility] GFR Estimate 55 (L) >60 07/27/2018 [place] mL/min/{1. 4:00 PM [facility] 73_m2} [facility]OSP[facility] Comment: Non GFR Calc Starting 03/09/2018, serum creatinine ba sed estimated GFR (eGFR) will be calculated using the Chronic Kidney Dise [facility] Epidemiology Collaboration (CKD-EPI) equation. GFR Estimate If 64 >60 mL/min/{1.73_m2} 07/27/2018 4: 00 PM [facility] Comment: GFR Calc Starting 03/09/2018, serum creatinine ba sed estimated GFR (eGFR) will be calculated using the Chronic Kidney Dise [facility] Epidemiology Collaboration (CKD-EPI) equation. Calcium 8.6 8.5 - 10.1 07/27/2018 4:00 PM [place] mg/dL [facility] Bilirubin Total 0.3 0.2 - 1.3 mg/dL 07/27/2018 4:03 PM [facility] Albumin 3.2 (L) 3.4 - 5.0 g/dL 07/27/2018 4:03 PM KRISSY MARRUFO [facility] Protein Total 6.5 (L) 6.8 - 8.8 g/dL 07/27/2018 4:03 PM [facility] Alkaline Phosphatase 104 40 - 150 U/L 07/27/2018 4:03 PM [facility] ALT 19 0 - 50 U/L 07/27/2018 4:03 PM [facility] AST 17 0 - 45 U/L 07/27/2018 4:03 PM [facility] Specimen Anatomical Collection Method Collection Time Receive d Time (Source) Location / / Volume Laterality Blood specimen 07/27/2018 3:21 PM 019 3:41 (specimen) CDT PM CDT Daniela Stratton DO LAB - BLOOD ORDERABLES Performing Organization Address [facility] Phon e Number [facility] [address] [place] [place] [address] [facility] [address] [place], [place] [address], [facility] [phone] [address], [facility] [phone] [facility] (ABNORMAL) Stool: occult blood (07/27/2018 3:21 PM CDT) [facility] Signature Occult Blood Positive (A) NEG^Negat 07/27/2018 [place] sunil 3:46 PM [facility] Specimen Anatomical Collection Method Collection Time Receive d Time (Source) Location / / Volume Laterality Stool specimen 07/27/2018 3:21 PM 019 3:43 (specimen) CDT PM CDT Daniela Stratton DO LAB - STOOLS ORDERABLES Performing Organization Address [facility] Phon e Number [facility] [address] [place], [place] [address] [facility] [address] [place] [id number] 7, [facility] [phone] (ABNORMAL) UA with Microscopic (07/27/2018 3:21 PM CDT) [facility] Method Time Signature Color Urine Yellow 07/27/2018 [place] 4:03 PM [facility] Appearance Urine Slightly 07/27/2018 [place] Cloudy 4:03 PM [facility] Glucose Urine Negative NEG^Negat 07/27/2018 [place] sunil mg/dL 4:03 PM [facility] Bilirubin Urine Negative NEG^Negat 07/27/2018 [facility] sunil 4:03 PM [facility] Ketones Urine Negative NEG^Negat 07/27/2018 [place] sun[place] mg/dL 4:03 PM [facility] Specific [place] 1.025 1.003 - 07/27/2018 [place] Urine 1.035 4:03 PM [facility] Blood Urine Negative NEG^Negat 07/27/2018 [facility] sunil 4:03 PM [facility] pH Urine 6.0 5.0 - 7.0 07/27/2018 [place] pH 4:03 PM [facility] Protein Albumin Negative NEG^Negat 07/27/2018 [place] Urine sunil mg/dL 4:03 PM [facility] Urobilinogen Normal 0.0 - 2.0 07/27/2018 [place] mg/dL mg/dL 4:03 PM [facility] Nitrite Urine Negative NEG^Negat 07/27/2018 [place] sunil 4:03 PM [facility] Leukocyte Trace (A) NEG^Negat 07/27/2018 [place] Esterase Urine sunil 4:03 PM [facility] Source Midstream 07/27/2018 [place] Urine 3:23 PM [facility] WBC Urine 6 (H) 0 - 5 07/27/2018 [facility] /HPF 4:03 PM [facility] RBC Urine 2 0 - 2 07/27/2018 [facility] /HPF 4:03 PM [facility] Bacteria Urine Few (A) NEG^Negat 07/27/2018 [facility] sunil /HPF 4:03 PM [facility] Squamous <1 0 - 1 07/27/2018 [facility] Epithelial /HPF /HPF 4:03 PM [facility] Mucous Urine Present (A) NEG^Negat 07/27/2018 [facility] sunil /LPF 4:03 PM [facility] Amorphous Few (A) NEG^Negat 07/27/2018 [facility] Crystals sunil /HPF 4:03 PM [facility] Specimen (Source) Anatomical Collection Method Collection Time Re ceived Time Location / / Volume Laterality Examination of 07/27/2018 3:21 07/27/2018 3:44 midstream urine PM [facility] specimen (procedure) Daniela Stratton DO LAB - URINE ORDERABLES Performing Organization Address City/State/ZIP Code Phon e Number [facility] [address] [place], [place] [address] [facility] [address] [place], [place] [address], [facility] [phone] Blood component (07/27/2018 3:08 PM CDT) [facility] [employer] Method Time Signature Unit Number [id number] 07/28/2018 [facility] 6:37 PM [facility] Blood Red Blood 07/28/2018 [facility] Component Cells 6:37 PM [facility] Reduced Division 00 07/28/2018 [facility] Number 6:37 PM [facility] Status of Released to 07/28/2018 [place] Unit care unit 11:52 PM [facility] Blood Product [id number] 07/28/2018 [facility] Code 6:37 PM [facility] Unit Status [facility] Specimen Anatomical Collection Method Collection Time Receive d Time (Source) Location / / Volume Laterality 07/27/2018 3:08 PM 9 3:38 CDT PM CDT Daniela Stratton DO LABORATORY Performing Organization Address City/[facility]/ZIP Code Phon e Number [facility] [address], [place] [address] [facility] [address] [place], [place] [address], [facility] [phone] ABO/Rh type and screen (07/27/2018 3:08 PM CDT) [facility] [employer] Method Time Signature Units Ordered 1 07/28/2018 [facility] 6:37 PM [facility] ABO O 07/27/2018 [facility] 4:12 PM [facility] RH(D) Pos [facility] Antibody Neg 07/27/2018 [facility] Screen 4:12 PM [facility] Test Valid Kirvin 07/27/2018 [facility] Only At [facility] 3:45 PM [facility] Specimen 07/30/2018 07/27/2018 [facility] Expires 3:45 PM [facility] Specimen Anatomical Collection Method Collection Time Receive d Time (Source) Location / / Volume Laterality Blood specimen 07/27/2018 3:08 PM 2 019 3:38 (specimen) CDT PM CDT Daniela Stratton DO LAB - BLOOD BANK TEST ORDER Performing Organization Address City/State/ZIP Code Phon e Number [facility] [address] [place], [place] [address] [facility] [address] [phone] (ABNORMAL) CBC with platelets differential (07/27/2018 3:08 PM CDT) [facility] gist Method Time Signature WBC 6.6 4.0 - 07/27/2018 [facility] 11.0 3:45 PM [facility] 10e9/L [facility] RBC Count 3.46 (L) 3.8 - 5.2 07/27/2018 [facility] 10e12/L 3:45 PM [facility] Hemoglobin 8.4 (L) 11.7 - 07/27/2018 [facility] 15.7 g/dL 3:45 PM [facility] Hematocrit 28.3 (L) 35.0 - 07/27/2018 [facility] 47.0 % 3:45 PM [facility] MCV 82 78 - 100 07/27/2018 [facility] fl 3:45 PM [facility] MCH 24.3 (L) 26.5 - 07/27/2018 [facility] 33.0 pg 3:45 PM [facility] MCHC 29.7 (L) 31.5 - 07/27/2018 [facility] 36.5 g/dL 3:45 PM [facility] RDW 19.7 (H) 10.0 - 07/27/2018 [facility] 15.0 % 3:45 PM [facility] Platelet Count 394 150 - 450 07/27/2018 [facility] 10e9/L 3:45 PM [facility] Diff Method Automated 07/27/2018 [facility] Method 3:45 PM [facility] % Neutrophils 64.4 % 07/27/2018 [facility] 3:45 PM [facility] % Lymphocytes 19.3 % 07/27/2018 [facility] 3:45 PM [facility] % Monocytes 10.5 % 07/27/2018 [facility] 3:45 PM [facility] % Eosinophils 4.9 % 07/27/2018 [facility] 3:45 PM [facility] % Basophils 0.6 % 07/27/2018 [facility] 3:45 PM [facility] % Immature 0.3 % 07/27/2018 [facility] Granulocytes 3:45 PM [facility] Nucleated RBCs 0 0 /100 07/27/2018 [facility] 3:45 PM [facility] Absolute 4.3 1.6 - 8.3 07/27/2018 [facility] Neutrophil 10e9/L 3:45 PM [facility] Absolute 1.3 0.8 - 5.3 07/27/2018 [facility] Lymphocytes 10e9/L 3:45 PM [facility] Absolute 0.7 0.0 - 1.3 07/27/2018 [facility] Monocytes 10e9/L 3:45 PM [facility] Absolute 0.3 0.0 - 0.7 07/27/2018 [facility] Eosinophils 10e9/L 3:45 PM [facility] Absolute 0.0 0.0 - 0.2 07/27/2018 [facility] Basophils 10e9/L 3:45 PM [facility] Abs Immature 0.0 0 - 0.4 07/27/2018 [facility] Granulocytes 10e9/L 3:45 PM [facility] Absolute 0.0 07/27/2018 [facility] Nucleated RBC 3:45 PM [facility] Specimen Anatomical Collection Method Collection Time Receive d Time (Source) Location / / Volume Laterality Blood specimen 07/27/2018 3:08 PM 019 3:37 (specimen) CDT PM CDT Daniela Stratton DO LAB - BLOOD ORDERABLES Performing Organization Address City/State/ZIP Code Phon e Number [facility] [address] [place], [place] [address] [facility] [address] [phone] EKG 12 lead (07/27/2018 3:07 PM CDT) [facility] Method Time Signature Interpretation ECG Click View RADIOLOGY Image link RESULTS to view waveform and result Specimen (Source) Anatomical Collection Method Collection Time Re ceived Time Location / / Volume Laterality 07/27/2018 3:07 PM CDT Danielaeduardo Stratton DO ECG ORDERABLES Performing Organization Address City/State/ZIP Code Phon e Number RADIOLOGY RESULTS documented in this encounter Visit Diagnoses Not on filedocumented in this encounter Administered Medications Inactive Administered [...] Given 07/28/2018 8:40 AM CDT 325 mg benzocaine 20% (HURRICAINE/TOPEX) 20 % s pray Given 07/29/2018 1:12 PM CDT 1 each PRN, Starting on Francie 07/29/18 at 1312, Intra-procedure cefTRIAXone (ROCEPHIN) 1 g vial to attach to New Bag 9 5:47 PM CDT 1 g NS 100 mL bag for ADULTS or NS 50 mL bag for PEDS STAT, 1 g, Intravenous, ONCE, On Thu07/27/18 at 1636, For 1 dose, For 30 minutes., Indications: Urinary Tract Infection fentaNYL (PF) (SUBLIMAZE) injection Given 07/29/2018 1:11 PM CDT 50 mcg PRN, Administer over 3-5 Minutes, Starting on Francie 07/29/18 at 1311, Intra-procedure ferrous gluconate (FERGON) tablet 324 mg Given 07/29/2018 7:28 AM CDT 324 mg 324 mg, Oral, 2 TIMES DAILY, First dose on Thu07/27/18 at 2000 Given 07/28/2018 9:15 PM CDT 324 mg Given 07/28/2018 8:41 AM CDT 324 mg flumazenil (ROMAZICON) injection 0.2 mg 0.2 mg, Intravenous, EVERY 1 MIN PRN, benzodiazepine r eversal, over sedation, Administer over 1 Minutes, Starting on T hu 07/29/18 at 1351, For 12 hours, Give [...] 1351, Until Francie 07/29/18 at 1858, Post-procedure midazolam (VERSED) injection Given 07/29/2018 1:11 PM CDT 1 mg Administer over 2 Minutes, PRN, Starting on Thu07/29/18 at 1311, Intra-procedure naloxone (NARCAN) injection 0.1-0.4 mg 0.1-0.4 mg, [...] potassium supplementation, Starting on Thu07/27/18 at 1949, Infuse via PERIPHERAL LINE. Use potassium with [...] potassium supplementation, Starting on Thu07/27/18 at 1950, Use if able to take PO. If [...] meds, Starting on Thu07/29/18 at 1351, Post-procedure sodium chloride (PF) 0.9% PF flush Given 07/29/2018 1:11 PM CDT 3 mLs PRN, Starting on Thu07/29/18 at 1311, Intra-procedure tamsulosin (FLOMAX) capsule 0.4 mg Given 07/29/2018 [...] NS 50 mL bag for PEDS (COMPLETED) 1747 (New Bag - Provider: Ann España, DAVI)1858 (Stopped - Provider: Jyoti Smith, DAVI - Comment: stopped in ED prior to obs admit) 1 g, Intravenous, ONCE, Thu07/27/18 at 16 36, For 1 dose, For 30 minutes., Indications: Urinary Tract Infection ferrous gluconate (FERGON) tablet 324 mg 1956 (Given - Provider: Char Burden RN) 0841 (Given - Provider: Jyoti land RN)2114 (Given - Provider: Karlee Valentin RN) 0728 (Given - Provider: Jyoti land RN) 324 mg, Oral, 2 TIMES DAILY, First dose on Thu07/27/18 at 1999 fluticasone (FLONASE) 50 MCG/ACT spray 1 spray 2110 (G iven - Provider: Char Burden RN) 0847 (Not Given - Provider: Jyoti coker RN - Reason: Patient/family refused)2114 (Given - Provider: Karlee Valetnin RN) 0728 (Given - Provider: Jyoti Smith, DAVI) 1 spray, Both Nostrils, 2 TIMES DAILY, F irst dose on Thu07/27/18 at 2000, Pt may use own medication iopamidol (ISOVUE-370) solution 500 mL (COMPLETED) 160 6 (Given - Provider: Lance Jacobs) 500 mL, Intravenous, ONCE, Thu07/27/18 at 1607, For 1 dose latanoprost (XALATAN) 0.005 % ophthalmic solution [address] dr gregory 2157 (Not Given - Provider: Char Burden RN - Reason: Patient/family refused) 2113 (Not Given - Provider: Karlee Valentin RN - Reason: Patient/family refused) 1 drop, Both Eyes, AT BEDTIME, First dos e on Thu07/27/18 at 2200, Pt may use own medication levothyroxine (SYNTHROID/LEVOTHROID) tablet 112 mcg 0840 (Given - Provider: Jyoti Smith RN) 0728 (Given - Provider: Jyoti land, RN) 112 mcg, Oral, DAILY, First dose on Thu07/28/18 at 0800, Separate oral administration of iron- or calcium-containing products and levothyroxine by at least 4 hours. omeprazole (priLOSEC) CR capsule 20 mg 0 839 (Given - Provider: Jyoti Smith RN) 07 (Given - Provider: Jyoti land RN) 20 mg, Oral, DAILY, First dose on Thu07/28/18 at 0800 pantoprazole (PROTONIX) 40 mg IV push injection (COMPL ETED) 1600 (Given - Provider: Jethro Pena RN) 40 mg, Intravenous, ONCE, Thu07/27/18 at 1557, For 1 dose, Irritant. For ordered IV doses 1-40 mg, give IV Push over 2 minutes when reconstituted with 10mL NS. potassium chloride ER (K-DUR/KLOR-CON M) CR tablet 40 mEq (COMPLETED) 1623 (Given - Provider: Jethro Pena RN) 40 mEq, Oral, ONCE, Thu07/27/18 at 1609, For 1 dose, DO NOT CRUSH sertraline (ZOLOFT) tablet 150 mg 0839 ( Given - Provider: Jyoti Smith RN) 07 (Given - Provider: Jyoti land RN) 150 mg, Oral, DAILY, First dose on Thu07/28/18 at 0800 simvastatin (ZOCOR) tablet 10 mg 2155 (Given - Provider: Franklyn Burden RN) 2114 (Given - Provider: Karlee Valentin RN) 10 mg, Oral, AT BEDTIME, First dose on Thu07/27/18 at 2200 tamsulosin (FLOMAX) capsule 0.4 mg 1956 (Given - Provider: Yimi Burden RN) 0840 (Given - Provider: Jyoti Smith RN) 0728 (Given - Provider: Jyoti Smith RN) 0.4 mg, Oral, DAILY, First dose on [...] 2155 (Given - Provider: Sarina Burden, DAVI) 211 (Given - Provider: Karlee Valentin RN) 150 [...] 07/27/2018 07/28/2018 07/29/2018 lactated ringers infusion (CANCELED) 7315 (New Bag - P rovider: Jyoti Smith RN)1957 (Rate/Dose Verify - Provider: Char Burden RN) 1130 (Stopped - Provider: Jyoti Smith RN) at 100 mL/hr, Intravenous, CONTINUOUS, S tarting [...] mg 16 18 (Given - Provider: Edelmira Burkett RN) 650 mg, Oral, EVERY 4 HOURS PRN, [...] - Provider: Maci Chandler RN - Comment: vorb) Administer over 3-5 Minutes, PRN, Starting Francie [...] control or improvement in physical function., Starting Thu07/27/18 at 1832, Start with the lowest dose. [...] mg, Oral, AT BEDTIME PRN, itching, Starting Thu07/27/18 at 183 2 magnesium sulfate 4 g in 100 mL sterile water (premade) 4 g, Intravenous, Administer over 120 Mi nutes, EVERY 4 HOURS PRN, Starting Thu07/27/18 at 1950, magnesium supplementation, For serum Mg++ [...] Oral, AT BEDTIME PRN, sleep, Start ing Thu07/27/18 at 1832, Do not give unless at least 6 hours of uninterrupted sleep is expected. midazolam (VERSED) injection (CANCELED) 1311 (Given - Provider: Maci Chandler RN) Administer over 2 Minutes, PRN, Starting Francie 07/29/18 at 1311, Int ra-procedure naloxone (NARCAN) injection 0.1-0.4 mg 0.1-0.4 mg, Intravenous, EVERY 2 MIN PRN , opioid reversal, Starting Thu07/27/18 at 1832, For respiratory rate LESS than [...] usea, vomiting, Administer over 2-5 Minutes, Starting 07/27/18 at 1832, This is Step 1 of nausea and vomiting management. If nausea not resolved in 15 minutes, go to Step 2 prochlorperazine (COMPAZINE ). Irritant. For ordered IV doses 0.1-4 mg, give IV Push undiluted over 2-5 minutes. ondansetron (ZOFRAN-ODT) ODT tab 4 mg(Linked Group 1) 4 mg, Oral, EVERY 6 HOURS PRN, nausea, v omiting, Starting 07/27/18 at 1832, This is Step 1 of [...] EVERY 2 HOURS PRN, Starting Thu07/27/18 at 1949, potassium supplementation, Use if unable to tolerate [...] EVERY 1 HOUR PRN, Starting Thu07/27/18 at 1950, potassium supplementation, Infuse via PERIPHERAL LINE or [...] Intravenous, EVERY 1 HOUR PRN, S tarting 07/27/18 at 1950, potassium supplementation, Infuse via CENTRAL [...] 40 mEq 2110 (Given - Provider: Char Burden RN)2255 (Given - Provider: Char Burden RN - Comment: give 20 mEq) 20-40 mEq, [...] Francie Strange RN - Comment: [id number]) Starting Thu07/28/18 at 1411, For 1 dose, Francie Strange : cabinet override Linked Groups Order Group 1: ondansetron (ZOFRAN-ODT) ODT tab 4 mgJump to med 4 mg, Oral, EVERY 6 HOURS PRN, nausea, v omiting, Starting Thu07/27/18 at 1832
This is Step [...] minutes.
documented in this encounter Care Teams Software Controls Engineer Relationship Specialty Start Date End Date Clinic, Maame [facility] PCP - General 07/27/18 1110 [facility] [place] [id number] documented as of this encounter
--- OUTSIDE RECORDS SUMMARY | 2022-02-07 11:19 | XMS_ITS | Clinical Summary ---
:1940 Author Organization [place] Address [address] [place] [address] Care Team Providers Name Role Phone Clinic, [facility] Primary Care Provider Allergies Active Allergy Reactions Severity Noted Date Comments Amoxicillin Nausea and Vomiting High 07/27/2018 Influenza Virus Vaccine [id number] 07/27/2018 Medications Medication Sig Dispensed Refills Start Date End Date Status fluticasone (FLONASE) Lolita 1 spray into 0 Active 50 MCG/ACT nasal spray both nostrils 2 times daily albuterol (PROAIR Inhale 2 puffs 0 Active HFA/PROVENTIL into the lungs HFA/VENTOLIN HFA) 108 every 6 hours as (90 Base) MCG/ACT needed for inhaler shortness of breath / dyspnea or wheezing valACYclovir (VALTREX) Take 500 mg by 0 Active 500 MG tablet mouth Take 500 mg two times daily for 1 day for breakouts umeclidinium-vilantero Inhale 1 puff into 0 Active l (ANORO ELLIPTA) the lungs daily 62.5-25 MCG/INH oral inhaler sertraline (ZOLOFT) Take 150 mg by 0 Active 100 MG tablet mouth daily levothyroxine Take 112 mcg by 0 Active (SYNTHROID/LEVOTHROID) mouth daily 112 MCG tablet latanoprost (XALATAN) Place 1 drop into 0 Active 0.005 % ophthalmic both eyes At solution Bedtime triamterene-HCTZ Take 1 tablet by 0 Active (MAXZIDE-25) 37.5-25 mouth daily MG tablet Ferrous Gluconate 324 Take 1 tablet by 0 Active (37.5 Fe) MG TABS mouth 2 times daily simvastatin (ZOCOR) 10 Take 10 mg by 0 Active MG tablet mouth At Bedtime traZODone (DESYREL) Take 150 mg by 0 Active 150 MG tablet mouth At Bedtime hydrOXYzine (VISTARIL) Take 25 mg by 0 Active 25 MG capsule mouth nightly as needed for itching aspirin (ASA) 81 MG EC Take 1 tablet (81 0 9 Active tabletIndications: mg) by mouth daily Benign essential hypertension Active Problems Problem Noted Date Calculus of distal left ureter 07/27/2018 Social History Tobacco Use Types Packs/Day Years [...] Mass Index 29.15 07/27/2018 6:40 PM CDT Plan of Treatment Health Maintenance Due Date Last Done Comments ADVANCE CARE PLANNING 1940 ANNUAL REVIEW OF HM ORDERS 1940 DEXA 1940 HEPATITIS B IMMUNIZATION (1 1940 of 3 - 3-dose series) COVID-19 Vaccine (#1) 03/11/1941 LIPID 1986 ZOSTER IMMUNIZATION (1 of 2) 09/10/1991 FALL RISK ASSESSMENT 2006 PHQ-2 (once per calendar 03/23/2021 year) INFLUENZA VACCINE (#1) 2021 MEDICARE ANNUAL WELLNESS 12/25/2021 12/25/2020, VISIT 11/29/2019 DTAP/TDAP/TD IMMUNIZATION (3 01/24/2023 01/24/2013, - Td or Tdap) 07/06/2006 Pneumococcal Vaccine: 65+ Completed 01/04/2015, Years 01/07/2010 IPV IMMUNIZATION Aged Out No longer eligi ble based on patient's age to complete this to [facility] MENINGITIS IMMUNIZATION Aged Out No longe r eligible based on patient's age to complete this to [facility] Insurance Payer Benefit Plan / Subscriber ID Effective Phone Address T ype Group Dates [facility] [id number] 2020-Keri [phone] [address] [facility] [address] [place] [address] (Home) [place] [address] Advance Directives For more information, please contact: [phone] Latest Code Status on File Code Status Date Activated Date Inactivated Comments Full Code 07/29/2018 3:17 PM Question Answer Comments Code status determined by: Discussion with patient/legal dec ision maker Code Status History Code Status Date Activated Date Inactivated Comments Full Code 07/27/2018 6:32 PM 07/29/2018 3:17 PM Question Answer Comments Code status determined by: Discussion with patient/legal dec ision maker Care Teams Jalousies Installer Relationship Specialty Start Date End Date Maame Skinner PCP - General 07/27/18 [address] [place] [address]
--- OUTSIDE RECORDS SUMMARY | 2022-02-07 11:19 | XMS_ITS | Encounter Summary ---
:1940 Author Organization [place] Address [address] [place] [address] Care Team Providers Name Role Phone Clinic, [facility] Primary Care Provider Reason for Visit Rehab Therapy Cardiac Therapy (Routine) - Closed Specialty Diagnoses / Procedures Referred By Contact Refer red To Contact CARDIAC REHAB Diagnoses COPD, moderate (H) [address] [place] [address] Phone: Referral ID Status Reason Start Date Expiration Date Visits Requ ested Visits Authorized [id number] Closed 01/08/2021 03/22/2021 72 72 Encounter Details Date Type Department Care Team Description 01/22/2021 Hospital Encounter [facility] Laquita Barrett se, MD [facility] [address] [address] Cardiac and Pulmonary 2, [facility] [address] [place] [address] Social History Tobacco Use Types [...] mouth 2 times daily fluticasone (FLONASE) 50 [place] 1 spray into 0 MCG/ACT nasal spray [...] on filedocumented in this encounter Care Teams Body Art Technician Relationship Specialty Start Date End Date Maame Skinner PCP - General 07/27/[address] [place] [address] documented as of this encounter
--- OUTSIDE RECORDS SUMMARY | 2022-02-07 11:19 | XMS_ITS | Encounter Summary ---
:1940 Author Organization [place] Address [facility] [place] [address] Care Team Providers Name Role Phone Maame Skinner Primary Care Provider Encounter Details Date Type Department Care Team Description 07/29/2018 [facility] Only [facility]Benny [facility] Ammy Andre MD (Primary Dx) [address] [address] [place] [address] [place] [address] [phone] Social History Tobacco Use Types Packs/Day Years Used Date Smoking Tobacco: Never Assessed Sex Assigned at Date Recorded Not on file documented as of this encounter Plan of Treatment Not on filedocumented as of this encounter Visit Diagnoses Diagnosis Ureteral stone - Primary Calculus of ureter documented in this encounter Care Teams Production Operations Inspector Relationship Specialty Start Date End Date Maame Skinner PCP - General 07/27/18 1110 [facility] [place] Casey [phone] documented as of this encounter
--- OUTSIDE RECORDS SUMMARY | 2022-02-07 11:20 | XMS_ITS | Encounter Summary ---
:1940 Author Organization [place] Address [address] [place] [address] Care Team Providers Name Role Phone Maame Skinner Primary Care Provider Encounter Details Date Type Department Care Team Description 07/27/2018 Travel Social History Tobacco Use Types Packs/Day Years Used Date Smoking Tobacco: Never Assessed Sex Assigned at Date Recorded Not on file documented as of this encounter Plan of Treatment Not on filedocumented as of this encounter Visit Diagnoses Not on filedocumented in this encounter Care Teams Director Workers Compensation Relationship Specialty Start Date End Date Maame Skinner PCP - General 07/27/18 [address] [place] [address] documented as of this encounter
--- OUTSIDE RECORDS SUMMARY | 2022-02-07 11:20 | XMS_ITS | Encounter Summary ---
:1940 Author Organization [facility] Address [address] [place] [id number] Care Team Providers Name Role Phone Unavailable Primary Care Provider Unavailable Encounter Details Date Type Department Care Team Description 02/08/2005 Emergency room Cody Gudino Ma, MD EMERGENCY PHYSIC DWAYNE ORELLANA [address] [facility] [address] [place] [address] (Wo rk) Social History Tobacco Use Types Packs/Day Years Used Date Smoking Tobacco: Never Assessed Sex Assigned at Date Recorded Not on file documented as of this encounter Progress Notes Cody Gudino - 02/08/2005 11:59 PM RADIOLOGY RECEPTIONIST PRELIMINARY PRIMARY PHYSICIAN: Maame Estrada in [place]. CHIEF COMPLAINT: Right index finger injury. 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 She put pressure on it right away and came in to [facility]. It was not cleaned at the time of the injury. She denies any numbness or tingling or other injury. PAST MEDICAL HISTORY: Hypertension and hypothyroidism. MEDICATIONS: Synthroid, Premarin and hydrochlorothiazide. ALLERGIES: Tetanus. REVIEW OF SYSTEMS: All systems negative except for that stated above. SOCIAL HISTORY: She is single. Lives in [place]. Works at [employer]. PHYSICAL EXAMINATION: VITAL SIGNS: Temperature 97.7, pulse 83, respirations 18, blood pressure 127/86 and O2 saturation 96%. GENERAL: The patient is alert, cooperative and in no respiratory distress. EXTREMITIES: The rest of the exam is isolated to the affected extremity. The right upper extremity shows no tenderness, deformity or other abnormality in the upper arm, elbow, forearm, wrist or hand. On the extensor surface of the index finger, there is a laceration, it goes from just past the PIP joint and then extending over the DIP joint. It is more superficial, but does more flap. There is no normal tendon function with no nerve involvement and normal 2-point discrimination distally. The wound is 2 cm in total length, is a flap type wound, but the edges look good. EMERGENCY DEPARTMENT COURSE: I went ahead and did a digital block and had it cleansed and then I sewed it up. The patient tolerated it well. PROCEDURE NOTE: Wound repair. Verbal consent was given to me by the patient. I used Marcaine 0.5% to anesthetize the finger and had it cleansed with copious amounts of irrigation. I then used #5-0 Ethilon suture to close the wound with good results. CLINICAL IMPRESSION: Right index finger laceration 2 cm in total length requiring single layer closure. CLINICAL PLAN: Sutures removal in 9 days. Tylenol for pain. Push fluids. Return if worsening or fever or drainage. CODY GUDINO MD MT: sheldon Name: AYAH DELANEY MRN: [id number] Account: [id number] : 1940 Visit Date: 02/08/2005 Document: [id number] cc: [facility] OLOGY RECEPTIONIST documented in this encounter Plan of Treatment Not on filedocumented as of this encounter Visit Diagnoses Not on filedocumented in this encounter
--- OUTSIDE RECORDS SUMMARY | 2022-02-07 11:20 | XMS_ITS | Clinical Summary ---
:1940 Author Organization [facility] [place] [address] Care Team Providers Name Role Phone Dayron Coronado MD Unavailable Ronny Kilpatrick MD Unavailable [phone] Doroteo Rashid MD Unavailable Verona Romano MD Unavailable Unavailable Lalita Mendez NP Primary Care Provider [phone] Allergies Active Allergy Reactions Severity Noted Date Comments Amoxicillin-Pot Vomiting 04/26/2013 Other reacti on(s): Clavulanate Vomiting Flu Vac 2012 Nausea And Vomiting Low 11/12/2015 (18-64yrs)(Pf) Influenza A (H5n1) Virus Vomiting High 11/16/2018 Vaccine Monoval (18 Yr +) Influenza Virus Vaccines *Unknown 01/22/2018 Medications Medication Sig Dispensed Refills Start End Status Date Date Inhalational For home use. 1 Device 0 02/25/20 Act sunil Spacing Device Dx: COPD 13 (INSPIREASE) aspirin (ECOTRIN) Take 81 mg by 0 07/30/19 Active 81 mg enteric mouth. 19 coated tablet albuterol HFA Inhale 2 Puffs 0 12/15/19 A ctive (PRO-AIR; VENTOLIN; by mouth. 19 PROVENTIL) 90 mcg/actuation inhaler nebulizer For home use. 1 Kit 0 09/22/19 Active accessories Length of need: 21 kitIndications: 99 COPD exacerbation (HC) albuterol-ipratropi Inhale 3 mL via 90 mL 6 11/22/19 Active um (DUONEB) a nebulizer 4 21 (2.5-0.5 mg) in 3 times daily if mL NEBULIZATION needed. solutionIndications : COPD exacerbation (HC) nystatin powder Apply 1 Strip 60 g 2 12/26/19 Active (MYCOSTATIN) topically to 21 powderIndications: affected area(s) Tinea corporis 4 times daily. Apply to under breast fluticasone (50 mcg INHALE 1 SPRAY 48 g 3 02/09/20 Active per actuation) IN THE 21 nasal solution NOSTRIL(S) ONCE (FLONASE)Indication DAILY s: Chronic rhinitis umeclidinium-vilant Inhale 1 Puff by 60 Each 0 03/05/20 Active Kavon (Anoro mouth once 21 Ellipta) 62.5-25 daily. mcg/actuation inhalerIndications: COPD exacerbation (HC) acetaminophen-codei TAKE 1 TABLET BY 24 Tablet 0 08/30/19 Active ne (TYLENOL #3) MOUTH EVERY 6 300-30 mg per HOURS NEEDED tabletIndications: FOR PAIN . DO Chronic right SI NOT EXCEED 4000 joint pain MG OF ACETAMINOPHEN PER 24 HOURS traZODone (DESYREL) TAKE 1 TABLET BY 90 Tablet 0 12/22/19 Active 150 mg MOUTH AT BEDTIME 22 tabletIndications: Sleep disturbance cholecalciferol, Take 1 tablet by 0 08/13/19 Active Vitamin D3, 5,000 oral route every 22 unit tab tablet day triamterene-hydroch Take 1 Tablet by 90 Tablet 3 01/15/20 Active lorothiazide, mouth every 22 37.5-25 mg, morning. (MAXZIDE-25) 37.5-25 mg tabletIndications: Essential hypertension hydrOXYzine HCL Take 1 Tablet 90 Tablet 3 01/15/20 Active (ATARAX) 50 mg (50 mg) by mouth 22 tabletIndications: every 8 hours if Itching needed for Itching. Ferrous Gluconate Take 1 Tablet 180 Tablet 1 01/15/20 Active 324 mg (38 mg iron) (324 mg) by 22 tabletIndications: mouth two times Iron deficiency daily with anemia, unspecified meals. iron deficiency anemia type omeprazole Take 1 Capsule 90 Capsule 3 01/15/20 Act sunil (PRILOSEC) 20 mg (20 mg) by mouth 22 Delayed-Release once daily capsuleIndications: before a meal. Gastroesophageal reflux disease, unspecified whether esophagitis present levothyroxine Take 1 Tablet 90 Tablet 3 01/15/20 Ac tive (SYNTHROID) 100 mcg (100 mcg) by 22 tabletIndications: mouth before Hypothyroidism breakfast. (acquired) simvastatin (ZOCOR) Take 1 Tablet 90 Tablet 3 01/15/20 Active 10 mg (10 mg) by mouth 22 tabletIndications: once daily with Other evening meal. hyperlipidemia valACYclovir TAKE 1 TABLET BY 10 Tablet 3 01/15/20 Active (VALTREX) 500 mg MOUTH TWICE 22 tabletIndications: DAILY FOR 1 DAY HSV infection NEEDED FOR BREAKOUTS azithromycin Take 500 mg (2 6 Tablet 0 01/31/20 Ac tive (ZITHROMAX) 250 mg tabs) by mouth 22 tabletIndications: on day 1, then COPD exacerbation 250 mg (1 tab) (HC) daily for days 2-5. desonide 0.05% USE 1 0 02/27/20 Disco ntinued (TRIDESILON 0.05% APPLICATION (*Patient CREAM) 0.05 % cream TWICE A DAY states no TOPICALLY TO longer EYELIDS taking/Not on [facility] sending CREASES AXILLAE faci lity list) AND L POST FOR 1 WEEK AT A TIME diclofenac topical Apply 2 g on 0 12/28/19 Discontinued (VOLTAREN) 1 % gel dry, clean, (*Patient hairless skin. state s no longer taking/Not on sending facility l ist) omeprazole Take 1 Capsule 90 capsule. 3 12/26/19 Di scontinued (PRILOSEC) 20 mg (20 mg) by mouth (Reorder Delayed-Release once daily (E- cancel not capsuleIndications: before a meal. sent)) Gastroesophageal reflux disease, unspecified whether esophagitis present triamterene-hydroch Take 1 Tablet by 90 Tablet 3 12/26/1917/05 Discontinued lorothiazide, mouth every (Reo rder 37.5-25 mg, morning. (E-cance l not (MAXZIDE-25) sent)) 37.5-25 mg tabletIndications: Essential hypertension simvastatin (ZOCOR) Take 1 Tablet 90 tablet. 3 12/26/1901/14 Discontinued 10 mg (10 mg) by mouth (Re order tabletIndications: once daily with (E-cancel not Other evening meal. sent)) hyperlipidemia hydrOXYzine HCL TAKE 1 TABLET BY 90 Tablet 3 12/29/19 Discontinued (ATARAX) 50 mg MOUTH EVERY 6 ( Reorder tabletIndications: HOURS NEEDED (E-cancel not Itching FOR ITCHING sent)) Ferrous Gluconate Take 1 Tablet 180 tablet. 1 12/28/19 Discontinued 324 mg (38 mg iron) (324 mg) by (Reorder tabletIndications: mouth 2 times (E-cancel not Iron deficiency daily with sen t)) anemia, unspecified meals. iron deficiency anemia type levothyroxine Take 1 Tablet 90 Tablet 3 02/24/20 Di scontinued (SYNTHROID) 100 mcg (100 mcg) by (Reorder tabletIndications: mouth before (E-cancel not Hypothyroidism breakfast. sent )) (acquired) valACYclovir TAKE 1 TABLET BY 10 Tablet 3 08/01/19 Discontinued (VALTREX) 500 mg MOUTH TWICE ( Reorder tabletIndications: DAILY FOR 1 DAY (E-cancel not HSV infection NEEDED FOR se nt)) BREAKOUTS gabapentin Take 1 Capsule 90 Capsule 0 09/28/19 Dis continued (NEURONTIN) 300 mg (300 mg) by (*Patient capsuleIndications: mouth at states no Neuralgia bedtime. longer taking/Not on sending facility l ist) predniSONE Take 2 Tablets 10 Tablet 0 01/31/20 Expi red (DELTASONE) 20 mg (40 mg) by mouth tabletIndications: once daily with COPD exacerbation a meal for 5 (HC) days. Hospital, Clinic, or Other Ordered Dose Route Frequency Start Date End Date Status Facility Administered Medication methylPREDNISolone acetate 40 mg IM ONE TIME 01/30/2022 Ended (DEPO-MEDROL) 80 mg/mL injection 40 mgIndications: Cough, unspecified type, SOB (shortness of breath) albuterol-ipratropium 3 mL NEB ONE TIME 01/30/2022 022 Ended (2.5-0.5 mg) in 3 mL NEBULIZATION solution 3 mL (DUONEB)Indications: Cough, unspecified type, SOB (shortness of breath) Active Problems Problem Noted Date Blepharitis of both eyes 02/18/2021 Acquired aplastic anemia 09/21/2020 Anxiety and depression 05/08/2020 Hyperopia of both eyes with astigmatism and presbyopia 01/06/2019 Pseudophakia of both eyes 12/10/2018 Facet syndrome 07/13/2018 TIA (transient ischemic attack) 07/01/2017 Iron deficiency anemia 07/01/2017 Osteopenia 01/20/2014 Sleep disturbance 01/20/2014 Status post lumbar spinal fusion L4-S1 in 2005 using T SR-3D 01/31/2012 Hyperplastic colon polyp 01/28/2010 Overview: Colonoscopy 01/2010 polyp repeat in 10 y ears COPD (chronic obstructive pulmonary disease) 0 Acquired spondylolisthesis 02/04/2006 Overview: Degenerative L5-S1 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 02/04/2006 Overview: L3/4, L4-5 RLS (restless legs syndrome) 05/21/2004 Primary open angle glaucoma (POAG) of both eyes, mild stage 09/18/2003 HYPERTENSION 03/21/2002 REFLUX, ESOPHAGEAL 04/05/2001 Overview: EGD 2005: MIld refulx esophagitis HYPOTHYROIDISM ACQUIRED UNSPEC 04/29/1999 POLYP, VOCAL CORD/LARYNX 04/29/1999 Secondary cataract Resolved Problems Problem Noted Date Resolved Date Herpes simplex without mention of complication 10/03/2003 01/20/2014 Dysphagia 06/11/2000 01/07/2010 DEPRESSIVE DISORDER, RECUR, FULL REMISSION 09/12/1999 09/21/2020 DISORDER, TOBACCO USE 04/29/1999 01/20/2014 POSTMENOPAUSAL HORMONE REPLACEMENT THERAPY 04/29/1999 01/20/2014 SHORTNESS OF BREATH 09/18/2003 PAIN IN JOINT, ANKLE/FOOT 09/18/2003 PAIN IN JOINT, HAND 09/18/2003 PYELONEPHRITIS, ACUTE NOS 09/17/2004 Encounters Date Type Specialty Care Team Description 02/03/2022 Travel 02/03/2022 Nurse Triage Lalita Mendez NP 01/30/2022 Ancillary Procedure 01/30/2022 Office Visit Arthur Duval Breathing Pro blem (COPD MD Michele exacerbation) 01/30/2022 Travel 01/30/2022 Nurse/Clinic Staff Arthur Duval Only MD Michele 01/16/2022 Orders Only Lalita Mendez <No scans attached> E, LIVE SOURCE OPERATOR 01/14/2022 Office Visit Lalita Mendez Medicare ANNUAL E, LIVE SOURCE OPERATOR (subsequent) Vi sit 01/14/2022 Travel 12/20/2021 Refill Montrell Marx Refill Ismael Luke MD (Trazodone) from Last 3 Months Immunizations Name Administration Dates Next Due Pneumococcal Poly,23-Valent (Pneumovax) 01/07/2010 Pneumococcal conj 13-Valent (Prevnar 13) 01/04/2015 Td, Preservative Free (age >= 7 Years) 07/06/2006 Tdap 01/24/2013 Family History Medical History Relation Name Comments Good Health Daughter Ricarda Other Father drowning No Known Problems Maternal Grandfather No Known Problems Maternal Grandmother Heart attack Mother Stroke Mother No Known Problems Paternal Grandfather No Known Problems Paternal Grandmother Cancer Sister 1 Susan lung COPD Sister 2 Karla Cancer-pancreatic Son 1 Elliot Good Health Son 2 Brendan Relation Name Status Comments Daughter Ricarda Alive Father Maternal Grandfather Maternal Grandmother Mother Paternal Grandfather Paternal Grandmother Sister 1 Susan Sister 2 Karla Son 1 Elliot Son 2 Brendan Alive Social History Tobacco Use Types Packs/Day Years Used Date Former Smoker Cigarettes 04 15 1974 - 999 Smokeless Tobacco: Never Used Tobacco Cessation: Counseling Given: Yes Comments: Quit 1998 Alcohol Use Standard Drinks/Week Comments Not Currently 0 (1 standard drink = 0.6 oz pure alcoho l) Alcoholic Drinks/day: 0 Sex Assigned at Date Recorded Not on file COVID-19 Exposure Response Date Recorded In the last 10 days, have you been in contact with No / Unsu re 02/03/2022 1:32 PM AERONAUTICAL ENGINEERING TEACHER someone who was confirmed or suspected to have Coronavirus/COVID-19? Obstetrics History Last Filed Vital Signs Vital Sign Reading Time Taken Comments Blood Pressure 124/68 01/30/2022 1:36 PM AERONAUTICAL ENGINEERING TEACHER Pulse 95 01/30/2022 1:27 PM AERONAUTICAL ENGINEERING TEACHER Temperature 37.4 ??C (99.3 ??F) 01/30/2022 1:27 PM AERONAUTICAL ENGINEERING TEACHER Respiratory Rate 20 01/30/2022 1:27 PM AERONAUTICAL ENGINEERING TEACHER Oxygen Saturation 97% 01/30/2022 1:27 PM AERONAUTICAL ENGINEERING TEACHER Inhaled Oxygen Concentration - - Weight 68.9 kg (152 lb) 01/14/2022 3:07 PM CDT Height 156.7 cm (5' 1.69) 01/14/2022 3:07 PM CDT Body Mass Index 28.08 01/14/2022 3:07 PM CDT Plan of Treatment Upcoming Encounters Date Type Specialty Care Team Description 05/27/2022 Office Visit Gen David MD [address] [facility] [address] [place] [id number] (Wo rk) Health Maintenance Due Date Last Done Comments COVID-19 vaccine series (#1) 03/11/1941 Zoster (shingles) series for age 0609/10/1991 50+ (1 of 2) Medicare Wellness for age 65+ 12/25/2021 12/25/2020, 2019, 12/14/2018, Additional history exists BMI (ht and wt on same day) for 01/14/2023 01/14/2022, 07/2020, age 18+ 11/21/2020, Additional history exists Depression screening for age 12+ 01/16/2023 01/16/2022, , 12/27/2020, Additional history exists Tetanus booster 01/24/2023 01/24/2013, 07/06/2006 Tdap Completed 01/24/2013 Pneumococcal series for age 65+ Completed 01/04/2015, 12/21 DEXA/DXA scan for age 65+ Completed 12/16/2018, 01/24/2014 , 01/10/2010 Medical Devices Implanted Type Area Director Of Security Device Shelf Model / Identifier Expiration Serial / Lot Date Screw 6.5x35 Tsrh-3d Shrt Post - [id number] Spine Spine SOFAMOR [id number] / Implanted: Qty: 1 on 02/10/2006 at [facility] Implan ts / Graft Mastergraft 5cc - [id number] Spine SOFAMOR DANEK [id number]# / Implanted: Qty: 1 on 02/10/2006 at [facility] / [id number] Plate 12mm Interspinous Fusion - [id number] N/A: Arsalan gm Spine [id number] / Implanted: Qty: 1 on 04/25/2014 at [facility] [employer] / [id number] Iol Coamo +23.5 Tecnis [id number] - [id number] Right: [facility] edical 09/15/2022 [id number] 23.5# / Implanted: Qty: 1 on 11/25/2018 by Brandon Alexandre MD at [facility] [employer] [id number] / Iol Coamo +23.5 Tecnis Zcb00 - [id number] Left: [facility] edical 10/18/2022 [id number] 23.5# / Implanted: Qty: 1 on 12/09/2018 by Brandon Alexandre MD at [facility] [employer] [id number] / Explanted Type Area Director Of Security Device Shelf Model / Identifier Expiration Serial / Date Lot Probe Ball Tip 23cm Nim Spine - [id number] N/A: Medtron ic [id number] / Explanted: Qty: 1 on 04/25/2014 at [facility] Spine Spine/Ortho / Procedures Procedure Name Priority Date/Time Associated Diagnosis Comme nts COVID 19 Routine 01/30/2022 2:21 Cough, unspecified Result s for this PM AERONAUTICAL ENGINEERING TEACHER type procedure are in SOB (shortness of the result s breath) section. COVID 19 COLLECTION Routine 01/30/2022 2:21 Cough, unspecified Results for this PM AERONAUTICAL ENGINEERING TEACHER type procedure are in SOB (shortness of the result s breath) section. XR CHEST 2 VIEWS PA Routine 01/30/2022 1:57 Cough, unspecified Results for this AND LATERAL PM AERONAUTICAL ENGINEERING TEACHER type procedure are in SOB (shortness of the result s breath) section. FERRITIN Add On 01/14/2022 3:45 Iron deficiency Results f or this PM CDT anemia, unspecified procedur e are in iron deficiency anemia the r esults type section. IRON PLUS IRON Add On 01/14/2022 3:45 Iron deficiency Results for this BINDING CAP PM CDT anemia, unspecified procedur e are in iron deficiency anemia the r esults type section. VITAMIN B12 Add On 01/14/2022 3:45 Neuralgia Results for this PM CDT Itching procedure are in Flushing the results section. VITAMIN D 25 Add On 01/14/2022 3:45 Neuralgia Results for this (DEFICIENCY) PM CDT Itching procedure are in Flushing the results Vitamin D deficiency section . CBC WITH AUTO Routine 01/14/2022 3:45 Iron deficiency Results for this DIFFERENTIAL PM CDT anemia, unspecified procedur e are in iron deficiency anemia the r esults type section. CBC WITH AUTO Routine 01/14/2022 3:45 Iron deficiency Results for this DIFFERENTIAL PM CDT anemia, unspecified procedur e are in iron deficiency anemia the r esults type section. RA QUANTITATIVE Routine 01/14/2022 3:45 Neuralgia Results for this PM CDT Itching procedure are in [place] the results section. ANTINUCLEAR ANTIBODY Routine 01/14/2022 3:45 Neuralgia Results for this BY IFA PM CDT Itching procedure are in [place] the results section. C-REACTIVE PROTEIN Routine 01/14/2022 3:45 Neuralgia Results for this PM CDT Itching procedure are in [place] the results section. SEDIMENTATION RATE Routine 01/14/2022 3:45 Neuralgia Results for this PM CDT Itching procedure are in [place] the results section. LIPID PANEL W REFLEX Routine 01/14/2022 3:45 Other hyperlipide celena Results for this MEASURED LDL PM CDT procedure are i n the results section. COMP METABOLIC PANEL Routine 01/14/2022 3:45 Hypothyroidism Re sults for this PM CDT (acquired) procedure are in Other hyperlipid emia the results Neuralgia section. Itching TSH Routine 01/14/2022 3:45 Hypothyroidism Results fo r this PM CDT (acquired) procedure are i n the results section. from Last 3 Months Results (ABNORMAL) COVID 19 (01/30/2022 2:21 PM AERONAUTICAL ENGINEERING TEACHER) [facility] gist Method Time Signature COVID 19 Positive (A) Negative 01/31/2022 [facility] 4:03 PM AERONAUTICAL ENGINEERING TEACHER LABORATORY-[facility] MOLECULAR TRAL LABORATORY Specimen Anatomical Location / Collection Method Collection Viet e Received Time (Source) Laterality / Volume Other SPECIMEN FROM Non-Blood / 01/30/2022 2:21 01/31/2022 6:10 NASOPHARYNGEAL Unknown PM AERONAUTICAL ENGINEERING TEACHER AM AERONAUTICAL ENGINEERING TEACHER STRUCTURE / Unknown Narrative [facility] LABORATORY-CENTRAL LABORAT ORY - 01/31/2022 4:03 PM AERONAUTICAL ENGINEERING TEACHER All PCR tests are subject to false negative result due to variability in viral load and collection te chnique. A negative result does not rule out a SARS-CoV-2 infection. Clinical correlation required. This test has been authorized by FDA und er an Emergency Use Authorization (EUA). This test is only authorized for the duration of time the declaration that circumstances exist justifying the authorizati on of the emergency use of in vitro diag nostic tests for detection of SARS-CoV-2 virus and/or diagnosis of COVID-19 infection under section 564(b)(1) of the Act, 21 U.S.C. 360bbb-3(b) (1), unless the authorization is terminated or revoked sooner. Arthur Duval MD MICROBIOLOGY Performing Organization Address City/[facility]/ZIP Code Phon e Number [facility] [employer] [address] [place] [address] LABORATORY-CENTRAL [facility] LABORATORY COVID 19 COLLECTION (01/30/2022 2:21 PM AERONAUTICAL ENGINEERING TEACHER) [facility] Method Time Signature TESTING [facility] 01/31/2022 [facility] LABORATORY Laboratory 6:10 AM AERONAUTICAL ENGINEERING TEACHER LABORATORY-CE NTRAL LABORATORY Comment: Specimen submitted to [facility] for testing. Specimen Anatomical Location / Collection Method Collection Viet e Received Time (Source) Laterality / Volume Other SPECIMEN FROM Non-Blood / 01/30/2022 2:21 01/30/2022 2:21 NASOPHARYNGEAL Unknown PM AERONAUTICAL ENGINEERING TEACHER PM AERONAUTICAL ENGINEERING TEACHER STRUCTURE / Unknown Arthur Duval MD SEND OUTS Performing Organization Address City/[facility]/ZIP [facility] Phon e Number [facility] [address] [place] [address] LABORATORY-CENTRAL 2000 LABORATORY XR CHEST 2 VIEWS PA AND LATERAL (01/30/2022 1:57 PM AERONAUTICAL ENGINEERING TEACHER) Anatomical Region Laterality Modality CHEST, THORAX, Lung, HEART Computed Radi ography Specimen (Source) Anatomical Collection Method Collection Time Re ceived Time Location / / Volume Laterality 01/30/2022 2:01 PM AERONAUTICAL ENGINEERING TEACHER Impressions 01/30/2022 2:01 PM AERONAUTICAL ENGINEERING TEACHER 1. No acute cardiopulmonary disease is seen. 2. Likely mild emphysematous changes. St able appearance of the chest from September 2020. Dictated by Travon Kasper MD @ Jan 30 ??2:01PM (Electronically Signed) ?? Narrative 01/30/2022 2:01 PM AERONAUTICAL ENGINEERING TEACHER For Patients: ??As a result of the Cures Act, medical imaging exams and procedure report s are released immediately into your [employer] medical record. ??You may view this report before your referring provider. ??If you have questions, please contact your health care provider. INDICATION: Cough, shortness of breath. 81-year-old female. TECHNIQUE: Chest radiograph 2 views COMPARISON: 09/25/2020 FINDINGS: Cardiovascular and mediastinum: The hear t silhouette is normal in size and morphology. The mediastinum is normal in appearance. Lungs and pleural spaces: Both lungs are unremarkable in appearance. No sign of pleural effusion seen. No pneumothorax is identified. Bones and soft tissues: No significant f indings. Lumbar spine and left shoulder surgical hardware. Bones are demineralized in the thoracic spine. No thoracic spine compression fracture. Procedure Note Travon Kasper MD - 01/30/2022F ormatting of this note might be different from the original. For Patients: As a result of the Cures Act, medical imaging exams and procedure reports are released immediately into your electronic medical record. You may view this report before your referring provider. If you have questions, please contact [facility] health care provider. INDICATION: Cough, shortness of breath. 81-year-old female. TECHNIQUE: Chest radiograph 2 views COMPARISON: 09/25/2020 FINDINGS: Cardiovascular and mediastinum: The hear t silhouette is normal in size and morphology. The mediastinum is normal in appearance. Lungs and pleural spaces: Both lungs are unremarkable in appearance. No sign of pleural effusion seen. No pneumothorax is identified. Bones and soft tissues: No significant f indings. Lumbar spine and left shoulder surgical hardware. Bones are demineralized in the thoracic spine. No thoracic spine compression fracture. IMPRESSION: 1. No acute cardiopulmonary disease is s een. 2. Likely mild emphysematous changes. St able appearance of the chest from September 2020. Dictated by Travon Kasper MD @ Jan 30 2:01PM (Electronically Signed) Arthur Duval MD GENERAL IMAGING SEDIMENTATION RATE (01/14/2022 3:45 PM CDT) [facility] Method Time Signature SEDIMENTATION RATE 13 <30 mm/hr 01/14/2022 [facility] 10:35 PM CDT LABORATORY-[facility] TRAL LABORATORY Specimen Anatomical Collection Method / Collection Time Recei titi Time (Source) Location / Volume Laterality Blood BLOOD SPECIMEN / Venipuncture / 01/14/2022 3:45 2021 3:45 Unknown Unknown PM CDT PM CDT Lalita Mendez NP HEMATOLOGY Performing Organization Address City/[facility] Phon e Number [facility] [address] [place] [address] LABORATORY-CENTRAL 2000 LABORATORY (ABNORMAL) ANTINUCLEAR ANTIBODY BY IFA (01/14/2022 3:45 PM CDT) [facility] Method Time Signature ANTINUCLEAR Positive (A) Negative 01/16/2022 [facility] ANTIBODY (JERRY) 2:50 PM CDT LABORATORY-CE NTRAL LABORATORY JERRY PATTERN 1 Multiple (none) 01/16/2022 [facility] Nuclear Dots 2:50 PM CDT LABORATORY-CE (A) NTRAL LABORATORY JERRY TITER 1 1:1280 (A) (none) 01/16/2022 [facility] 2:50 PM CDT LABORATORY-CE NTRAL LABORATORY CYTOPLASMIC Cytoplasmic Negative 01/16/2022 [facility] COMMENT Staining 2:50 PM CDT LABORATORY-CE Present (A) NTRAL LABORATORY Specimen Anatomical Collection Method / Collection Time Recei titi Time (Source) Location / Volume Laterality Blood BLOOD SPECIMEN / Venipuncture / 01/14/2022 3:45 2021 3:45 Unknown Unknown PM CDT PM CDT Narrative [facility] LABORATORY-CENTRAL LABORAT ORY - 01/16/2022 2:50 PM CDT Method: JERRY screen performed by (IFA) on HEP-2 substrate, IgG Lalita Mendez NP CHEMISTRY Performing Organization Address City/[facility] Phon e Number [facility] [address] [place] [address] LABORATORY-CENTRAL 2000 LABORATORY CBC WITH AUTO DIFFERENTIAL (01/14/2022 3:45 PM CDT) P athologist Signature WHITE BLOOD 7.0 4.5 - 11.0 01/14/2022 [facility] COUNT thou/cu mm 3:48 PM CDT [facility] RED BLOOD COUNT 4.77 4.00 - 01/14/2022 [facility] 5.20 3:48 PM CDT BARD mil/cu mm CLINIC HEMOGLOBIN 14.1 12.0 - 01/14/2022 [facility] 16.0 g/dL 3:48 PM CDT [facility] HEMATOCRIT 41.4 33.0 - 01/14/2022 [facility] 51.0 % 3:48 PM CDT [facility] MCV 87 80 - 100 01/14/2022 [facility] fL 3:48 PM CDT [facility] MCH 29.6 26.0 - 01/14/2022 [facility] 34.0 pg 3:48 PM CDT [facility] MCHC 34.1 32.0 - 01/14/2022 [facility] 36.0 g/dL 3:48 PM CDT [facility] RDW 14.1 11.5 - 01/14/2022 [facility] 15.5 % 3:48 PM CDT [facility] PLATELET COUNT 282 140 - 440 01/14/2022 [facility] thou/cu mm 3:48 PM CDT [facility] MPV 9.1 6.5 - 11.0 01/14/2022 [facility] fL 3:48 PM CDT [facility] % NEUT 53.2 % 01/14/2022 [facility] 3:48 PM CDT [facility] % LYMPH 30.7 % 01/14/2022 [facility] 3:48 PM CDT [facility] % MONO 11.0 % 01/14/2022 [facility] 3:48 PM CDT [facility] % EOS 4.7 % 01/14/2022 [facility] 3:48 PM CDT [facility] % BASO 0.4 % 01/14/2022 [facility] 3:48 PM CDT [facility] ABSOLUTE 3.7 1.7 - 7.0 01/14/2022 [facility] NEUTROPHILS thou/cu mm 3:48 PM CDT [facility] ABSOLUTE 2.1 0.9 - 2.9 01/14/2022 [facility] LYMPHOCYTES thou/cu mm 3:48 PM CDT [facility] ABSOLUTE 0.8 <0.9 01/14/2022 [facility] MONOCYTES thou/cu mm 3:48 PM CDT [facility] ABSOLUTE 0.3 <0.5 01/14/2022 [facility] EOSINOPHILS thou/cu mm 3:48 PM CDT [facility] ABSOLUTE 0.0 <0.3 01/14/2022 [facility] BASOPHILS thou/cu mm 3:48 PM CDT [facility] Specimen Anatomical Collection Method / Collection Time Recei titi Time (Source) Location / Volume Laterality Blood BLOOD SPECIMEN / Venipuncture / 01/14/2022 3:45 2021 3:45 Unknown Unknown PM CDT PM CDT Lalita Mendez NP HEMATOLOGY Performing Organization Address City/State/ZIP Code Phon e Number [facility] [id number] [place] [phone] CLINIC LIPID PANEL W REFLEX MEASURED LDL (01/14/2022 3:45 PM CDT) [facility] Method Time Signature CHOLESTEROL,TOTAL 170 100 - 199 01/15/2022 [facility] mg/dL 9:17 PM CDT [facility] TRIGLYCERIDES 135 <150 01/15/2022 [facility] mg/dL 9:17 PM CDT [facility] HDL CHOLESTEROL 60 >40 mg/dL 01/15/2022 [facility] 9:17 PM CDT [facility] NON-HDL 110 <145 01/15/2022 [facility] CHOLESTEROL mg/dl 9:17 PM CDT [facility] CHOL/HDL RATIO 2.83 <4.50 01/15/2022 [facility] 9:17 PM CDT [facility] LDL CHOLESTEROL 83 <=130 01/15/2022 [facility] mg/dL 9:17 PM CDT [facility] VLDL CHOLESTEROL 27 <=30 01/15/2022 [facility] mg/dL 9:17 PM CDT [facility] PROVIDER ORDERED RANDOM 01/15/2022 [facility] STATUS 9:17 PM CDT [facility] Specimen Anatomical Collection Method / Collection Time Recei titi Time (Source) Location / Volume Laterality Blood BLOOD SPECIMEN / Venipuncture / 01/14/2022 3:45 2021 3:45 Unknown Unknown PM CDT PM CDT Lalita Mendez NP CHEMISTRY Performing Organization Address City/[facility]/ZIP Code Phon e Number [facility] [address] [place] [address] LAB[facility]ATORY-CEN[facility]AL [address] [facility], CLINIC VITAMIN D 25 (DEFICIENCY) (01/14/2022 3:45 PM CDT) athologist Signature VITAMIN D 76.3 30.0 - 01/15/2022 [facility] TOTAL 80.0 ng/mL 9:38 PM CDT [facility] LABOR[facility] Specimen Anatomical Collection Method / Collection Time Recei titi Time (Source) Location / Volume Laterality Blood BLOOD SPECIMEN / Venipuncture / 01/14/2022 3:45 2021 3:45 Unknown Unknown PM CDT PM CDT Narrative [facility] LABORATORY-CENTRAL LABORAT ORY - 01/15/2022 9:38 PM CDT Deficiency: ? <20 ng/mL Insufficiency: ?20-29 ng/mL Sufficiency: ?30-80 ng/mL Possible Toxicity: ??>80 ng/mL Based on [place] [facility] recommend ations Lalita Mendez NP SEND OUTS Performing Organization Address City/[facility] Code Phon e Number [facility] [address] [place] [address] LABORATORY-CENTRAL 2000 LABORATORY TSH (01/14/2022 3:45 PM CDT) athologist Signature TSH 1.92 0.35 - 4.94 01/15/2022 [facility] uIU/mL 9:38 PM CDT LABORAT[facility]-CENTR AL LABORATORY Specimen Anatomical Collection Method / Collection Time Recei titi Time (Source) Location / Volume Laterality Blood BLOOD SPECIMEN / Venipuncture / 01/14/2022 3:45 2021 3:45 Unknown Unknown PM CDT PM CDT Narrative [facility] LABORATORY-CENTRAL LABORAT ORY - 01/15/2022 9:38 PM CDT In Adults, TSH values between 5.00 and 10.00 uIU/ml do not necessarily indicate the presence of Hyp othyroidism. Correlation with clinical findings such as presence of goiter and/or Thyroperoxidase (TPO) Antibody ma y be helpful. For more information please refer to TREV 20 ; 291: [id number]. Lalita Mendez NP CHEMISTRY Performing Organization Address City/[facility] Phon e Number [facility] [address] [facility] [place] [address] LABORATORY-CENTRAL 2000 LABORATORY IRON PLUS IRON BINDING CAP (01/14/2022 3:45 PM CDT) athologist Signature IRON 114 25 - 156 01/18/2022 [facility] ug/dL 4:01 PM CDT LAB[facility]ATORY-[facility] LABORATORY UIBC 245 01/18/2022 [facility] Syntricity (UNSATURATED) 4:01 PM CDT [facility] T [facility] LABORATORY IRON BINDING 359 245 - 400 01/18/2022 [facility] CAPACITY ug/dL 4:01 PM CDT LABORATORY-[facility] LABORATORY IRON,% 32 20 - 55 % 01/18/2022 [facility] SATURATION 4:01 PM CDT LAB[facility]ATORY-[facility] LAB[facility]ORY Specimen Anatomical Collection Method / Collection Time Recei titi Time (Source) Location / Volume Laterality Blood BLOOD SPECIMEN / Venipuncture / 01/14/2022 3:45 2021 3:45 Unknown Unknown PM CDT PM CDT Lalita Mendez NP CHEMISTRY Performing Organization Address City/[facility] Phon e Number [facility] [address] [facility] [place] [address] LABORATORY-CENTRAL 2000 LABORATORY RA QUANTITATIVE (01/14/2022 3:45 PM CDT) athologist Signature RHEUMATOID <7.00 <12.50 01/15/2022 [facility] FACTOR,QUANT IU/mL 10:10 AM CDT [facility] T RAL LABORATORY Specimen Anatomical Collection Method / Collection Time Recei titi Time (Source) Location / Volume Laterality Blood BLOOD SPECIMEN / Venipuncture / 01/14/2022 3:45 2021 3:45 Unknown Unknown PM CDT PM CDT Lalita Mendez NP SEND OUTS Performing Organization Address [facility] e Number [facility] [address] [place] [address] LABORATORY-CENTRAL 2000 LABORATORY (ABNORMAL) C-REACTIVE PROTEIN (01/14/2022 3:45 PM CDT) Analysis Performed At Patho logist Time Signature C-REACTIVE 0.68 (H) <0.50 01/15/2022 [facility] PROTEIN mg/dL 9:14 PM CDT [facility] Specimen Anatomical Collection Method / Collection Time Recei titi Time (Source) Location / Volume Laterality Blood BLOOD SPECIMEN / Venipuncture / 01/14/2022 3:45 2021 3:45 Unknown Unknown PM CDT PM CDT Lalita Mendez NP CHEMISTRY Performing Organization Address [facility] e Number [facility] [address] [place] [address] LABORATORY-CENTRAL 2000 LABORATORY FERRITIN (01/14/2022 3:45 PM CDT) athologist Signature FERRITIN 31.3 15.0 - 01/15/2022 [facility] 205.0 ng/mL 9:38 PM CDT [facility]AT[facility]EN[facility] LABORATORY Specimen Anatomical Collection Method / Collection Time Recei titi Time (Source) Location / Volume Laterality Blood BLOOD SPECIMEN / Venipuncture / 01/14/2022 3:45 2021 3:45 Unknown Unknown PM CDT PM CDT Lalita Mendez NP CHEMISTRY Performing Organization Address [facility] e Number [facility] [address] [place] [address] LABORATORY-CENTRAL 2000 LABORATORY (ABNORMAL) VITAMIN B12 (01/14/2022 3:45 PM CDT) P athologist Signature VITAMIN B12 127 (L) 180 - 914 01/17/2022 [facility] pg/mL 6:54 AM CDT LABORATORY-CENT RAL LABORATORY Specimen Anatomical Collection Method / Collection Time Recei titi Time (Source) Location / Volume Laterality Blood BLOOD SPECIMEN / Venipuncture / 01/14/2022 3:45 10/25/ 2022 3:45 Unknown Unknown PM CDT PM CDT Lalita E Vanessa LIVE SOURCE OPERATOR CHEMISTRY Performing Organization Address City/State/ZIP Code Phon e Number [facility] [address] [place] [address] LABORATORY-CENTR[facility] 2000 LABORATORY (ABNORMAL) COMP METABOLIC PANEL (01/14/2022 3:45 PM CDT) [facility] Method Time Signature SODIUM 139 135 - 145 01/15/2022 [facility] mmol/L 9:17 PM CDT [facility] POTASSIUM 4.3 3.5 - 5.0 01/15/2022 [facility] Synt[facility] mmol/L 9:17 PM CDT [facility] CHLORIDE 101 98 - 110 01/15/2022 [facility] mmol/L 9:17 PM CDT [facility] CO2,TOTAL 29 21 - 31 01/15/2022 [facility] mmol/L 9:17 PM CDT [facility] ANION GAP 9 5 - 18 01/15/2022 [facility] 9:17 PM CDT [facility] GLUCOSE 92 65 - 100 01/15/2022 [facility] mg/dL 9:17 PM CDT [facility] CALCIUM 9.7 8.5 - 01/15/2022 [facility] 10.5 9:17 PM CDT [facility] mg/dL TRAL LABORATORY BUN 19 8 - 25 01/15/2022 [facility] mg/dL 9:17 PM CDT [facility] CREATININE 1.24 (H) 0.57 - 01/15/2022 [facility] 1.11 9:17 PM CDT [facility] mg/dL TRAL LABORATORY BUN/CREAT RATIO 15 10 - 20 01/15/2022 [facility] 9:17 PM CDT [facility] ALBUMIN 4.6 3.2 - 4.6 01/15/2022 [facility] g/dL 9:17 PM CDT [facility] PROTEIN,TOTAL 6.9 6.0 - 8.0 01/15/2022 [facility] g/dL 9:17 PM CDT [facility] GLOBULIN 2.3 2.0 - 3.7 01/15/2022 [facility] g/dL 9:17 PM CDT [facility] A/G RATIO 2.0 1.0 - 2.0 01/15/2022 [facility] 9:17 PM CDT [facility] BILIRUBIN,TOTAL 0.7 0.2 - 1.2 01/15/2022 [facility] mg/dL 9:17 PM CDT [facility] ALK PHOSPHATASE 88 50 - 136 01/15/2022 [facility] IU/L 9:17 PM CDT [facility] ALT (SGPT) 18 8 - 45 01/15/2022 [facility] IU/L 9:17 PM CDT [facility] AST (SGOT) 23 2 - 40 01/15/2022 [facility] IU/L 9:17 PM CDT [facility] eGFR 44 (L) >90 01/15/2022 [facility] mL/min/1. 9:17 PM CDT [facility] 73m2 TRAL LABORATORY Comment: As of 2021, eGFR is calcu lated by the CKD-EPI creatinine equation without race adjustment. eGFR can be inf luenced by muscle mass, exercise, and diet. The reported eGFR is an estimation only and is only applicable if the renal function is stable. Specimen Anatomical Collection Method / Collection Time Recei titi Time (Source) Location / Volume Laterality Blood BLOOD SPECIMEN / Venipuncture / 01/14/2022 3:45 2021 3:45 Unknown Unknown PM CDT PM CDT Lalita Mendez NP CHEMISTRY Performing Organization Address City/State/ZIP Code Phon e Number [facility] [address] [place] [address] LABORATORY-CENTRAL 2000 LABORATORY from Last 3 Months Additional Health Concerns Infection Onset Date Last Indicated COVID-19 01/30/2022 01/30/2022 Insurance Payer Benefit Plan / Subscriber ID Effective Dates Phone Addre ss Type Group MEDICARE PART A - MEDICARE PART A [id number] 2006-[place] ATTN: CLAIMS HB USE ONLY HB ONLY t [address] [place] [address] [facility] MR [id number] 2020-Yarely [address] [address] [place] [address] Advance Directives Documents on File Type Date Recorded 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 Control Explanati on Healthcare Directive 10/07/2016 10:00 AM HEALTH C ARE DIRECTIVE ON FILE 10/07/16 Latest Code Status on File Code Status Date Activated Date Inactivated Comments Full Code 11/17/2019 12:14 PM 11/18/2019 2:08 AM Code Status Discussion: Not Discussed Full Code 12/09/2018 11:45 AM 12/09/2018 4:43 PM Full Code 11/25/2018 6:27 AM 11/25/2018 10:43 AM Full Code 04/25/2014 5:51 AM 04/29/2014 4:03 PM Full Code 02/03/2012 8:16 AM 02/05/2012 3:14 PM Care Teams 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 [place] [address] Verona Romano MD Pulmonology Pulmonary Medicine 08/21/15
[2022-02-07 11:58] LABS: Appearance Urine Slightly Cloudy (Clear); Bilirubin Urine Negative (Negative); Blood Urine Negative (Negative); Color Urine Yellow (Yellow); Glucose Urine Negative (Negative); Ketones Urine Negative (Negative); Leukocyte Esterase Urine Trace (Negative); Nitrite Urine Negative (Negative); Protein Urine Trace (Negative); Specific Gravity Urine 1.025 (1.000-1.030); Urobilinogen Urine 0.2 (0.2-1.0)
[2022-02-07 12:11] LABS: Basophils Absolute Auto 0.02 K/uL (0.00-0.30); Basophils Percent Auto 0.2 % (0.0-3.0); Eosinophils Absolute Auto 0.07 K/uL (0.00-0.50); Eosinophils Percent Auto 0.8 % (0.0-7.0); Hematocrit 47.6 % (33.0-51.0); Hemoglobin* 16.4 gm/dL (12.0-16.0); Immature Granulocytes Abs Auto 0.03 K/uL (0.00-0.30); Immature Granulocytes Pct Auto 0.3 %; Lymphocytes Absolute Auto 1.83 K/uL (0.90-2.90); Lymphocytes Percent Auto 20.3 % (20-44); Mean Corpuscular HGB Conc 35 gm/dL (32-36); Mean Corpuscular Hemoglobin 29 pg (26-34); Mean Corpuscular Volume 83 fL (80-100); Neutrophils Absolute Auto 6.08 K/uL (1.7-7.0); Neutrophils Percent Auto 67.4 % (42.0-72.0); Platelet Count* 362 K/uL (140-440); RDW Coefficient of Variation % 12.8 % (11.5-15.5); Red Blood Count 5.75 m/uL (4.00-5.20); White Blood Count* 9.02 K/uL (4.50-11.00)
[2022-02-07 12:29] LABS: RBC Urine 0-2 (0-2); WBC Urine 0-2 (0-5)
[2022-02-07 12:32] LABS: D Dimer Quantitative* 0.27 ug/ml (0.00-0.50); Slide Review Reflex No
[2022-02-07 12:36] LABS: PCR FLU A Negative PCR FLU A (Negative); PCR FLU B Negative PCR FLU B (Negative); PCR RSV Negative PCR RSV (Negative)
[2022-02-07 12:38] LABS: SARS PCR* POSITIVE SARS-CoV-2 (Negative)
[2022-02-07 12:49] LABS: Albumin* 4.6 g/dL (3.3-5.0); Bilirubin Total* 0.8 mg/dL (0.1-1.5); Blood Urea Nitrogen* 23 mg/dL (7-30); Calcium* 9.4 mg/dL (8.4-10.6); Carbon Dioxide* 27 mmol/L (20-32); Chloride* 101 mmol/L (96-114); Est. Creatinine Clearance* 35.49; Estimated Glomerular Filt Rate 57 ml/min; Glucose* 92 mg/dL (60-115); Potassium* 3.6 mmol/L (3.6-5.1); Sodium* 137 mmol/L (135-149); Total Protein* 7.3 g/dL (6.0-8.3)
[2022-02-07 12:50] LABS: Alanine Aminotransferase* 39 U/L (4-35); Alkaline Phosphatase* 97 U/L (40-150); Aspartate Amino Transferase* 25 U/L (12-35); C Reactive Protein* < 0.5 mg/dL (0.5-1.0)
== END 2022-02-07 13:53 | disposition home or self-care (01) ==
PROVIDERS: Emergency Provider Family Medicine; PCP Nurse Practitioner Family
DX: J44.9 Chronic obstructive pulmonary disease, unspecified (principal); J18.9 Pneumonia, unspecified organism
CPT/HCPCS: 36415; 71045; 80053; 81001; 85025; 85379; 86140; 87502; 87634; 87635; 99284

== ENCOUNTER 2022-08-11 13:00 | Outpatient (RCR) | payer MEDICARE, SELFPAY | END 2022-09-24 10:50 | disposition home or self-care (01) | PROVIDERS: PCP Nurse Practitioner Family; Visit Provider Internal Medicine Rheumatology | DX: M54.50 Low back pain, unspecified (principal); G89.29 Other chronic pain; M79.604 Pain in right leg; M62.81 Muscle weakness (generalized); R26.81 Unsteadiness on feet; Z51.89 Encounter for other specified aftercare | CPT/HCPCS: 97110; 97140; 97161 ==